=== PATIENT | female | born 1980 | race Caucasian/White ===

== ENCOUNTER → 2017-04-16 | Outpatient (CLI) | payer BC | END | disposition home or self-care (01) | LOC: C.LAB1850 10:03 | PROVIDERS: ATTEND Obstetrics & Gynecology | DX: O20.9 Hemorrhage in early pregnancy, unspecified (principal) ==

== ENCOUNTER → 2017-05-10 | Outpatient (CLI) | payer BC ==
[2017-05-10 12:29] LABS: BASO % 0.1 %; BASO ABS # 0.01 K/uL (0-0.2); COMPLETE YES; EOS % 0.3 %; HEMATOCRIT 32.8 % (37-47); IG% 0.1 %; LYMPH % 14.9 %; LYMPH ABS # 1.01 K/uL (1.2-3.4); MEAN CELL VOLUME 85.2 fL (80-100); MEAN CORPUSCULAR HEMOGLOBIN 28.8 pg (25-34); MEAN CORPUSCULAR HGB CONC 33.8 g/dl (32-36); MEAN PLATELET VOLUME 9.5 fL (7.4-10.4); NEUT % 79.6 %; PLATELET COUNT 273 K/uL (130-400); RED BLOOD COUNT 3.85 M/uL (4.2-5.4); WHITE BLOOD COUNT 6.79 K/uL (4.8-10.8)
[2017-05-10 14:49] LABS: URINE APPEARANCE CLEAR (CLEAR); URINE BILIRUBIN NEG (NEG); URINE COLOR YELLOW; URINE NITRITE NEG (NEG); URINE PH 7.5 (4.5-7.5); URINE SPECIFIC GRAVITY 1.021 (1.000-1.030); UROBILINOGEN NEG (NEG)
[2017-05-10 15:15] LABS: MANUAL MICROSCOPIC REQUIRED? NO; REVIEW REQ? NO
== END | disposition home or self-care (01) ==
LOC: C.LAB1850 11:32
PROVIDERS: ATTEND Obstetrics & Gynecology
DX: O09.521 Supervision of elderly multigravida, first trimester (principal)

== ENCOUNTER → 2017-06-28 | Outpatient (CLI) | payer BC ==
[2017-06-28 13:02] LABS: GTGD 50 Grams
[2017-06-29 15:14] LABS: AFP CONCENTRATION 57.6 NG/ML; AFP MULTIPLE OF MEDIAN 1.81; AFPTS INSULIN DEP DIABETIC? NO; AFPTS MATERNAL WT 127 LBS; ALPHA-FETOPROTEIN RACE CAUCASIAN=W; CIGARETTE SMOKER? NOT PROVIDED; EDD DETERMINED BY ULTRASOUND; HISTORY OF NTD NO; REPEAT SAMPLE? NO
== END | disposition home or self-care (01) ==
LOC: C.LAB1850 10:10
PROVIDERS: ATTEND Obstetrics & Gynecology
DX: O09.522 Supervision of elderly multigravida, second trimester (principal)

== ENCOUNTER → 2017-07-13 | Outpatient (CLI) | payer BC | END | disposition home or self-care (01) | LOC: C.LAB1850 08:41 | PROVIDERS: ATTEND Obstetrics & Gynecology | DX: O28.1 Abnormal biochemical finding on antenatal screening of mother (principal) ==

== ENCOUNTER 2017-08-16 19:07 | Observation (INO) | payer OTHER ==
[~2017-08-16] VITALS: Ht 154.9 cm; Wt 60.0 kg
[2017-08-16] MEDS ORDERED: LACTATED RINGER'S 1000ML 500 ML IV ONE (19:15)
[2017-08-16] MEDS ORDERED: MoRPHine SULFATE 4 MG/ML 1 ML CARP\\VIAL ONE (19:38)
[2017-08-16 19:48] LABS: EOS % 0.5 %; EOS ABS # 0.07 K/uL (0-0.5); HEMATOCRIT 30.7 % (37-47); HEMOGLOBIN 10.5 g/dL (12.0-16.0); LYMPH % 10.4 %; LYMPH ABS # 1.39 K/uL (1.2-3.4); MEAN CELL VOLUME 87.7 fL (80-100); MEAN CORPUSCULAR HGB CONC 34.2 g/dl (32-36); MONO % 4.4 %; MONO ABS # 0.59 K/uL (0.11-0.59); NEUT ABS # 11.26 K/uL (1.4-6.5); PLATELET COUNT 278 K/uL (130-400); RED CELL DISTRIBUTION WIDTH CV 16.2 % (11.5-14.5); RED CELL DISTRIBUTION WIDTH SD 52.4 fL (36.4-46.3); WHITE BLOOD COUNT 13.41 K/uL (4.8-10.8)
[2017-08-16] MEDS ORDERED: PATIENT'S ALLERGY INFO NEEDS ENTERED SCH (20:00)
--- NOTE | 2017-08-16 20:47 | DIAGNOSTIC IMAGING REPORT ---
CT SCAN OF THE ABDOMEN AND PELVIS WITHOUT IV CONTRAST CLINICAL HISTORY: Right lower quadrant abdominal pain. . COMPARISON STUDY: No priors. TECHNIQUE: CT scan of the abdomen and pelvis is performed from the lung bases to the proximal femora. Images are reviewed in the axial, sagittal, and coronal planes. IV contrast was not administered for this examination as per the referring clinician. Note that the examination was performed in suboptimal fashion without oral and IV contrast. A dose lowering technique was utilized adhering to the principles of ALARA. CT DOSE: 279.15 mGy.cm FINDINGS: Lung bases: The heart is normal in size and without pericardial effusion. The lung bases are clear. Liver: The unenhanced liver is normal in size, contour, and attenuation. There is no intrahepatic biliary ductal dilatation. Gallbladder: Unremarkable. Spleen: Normal in size and attenuation. Pancreas: Unremarkable. Adrenal glands: Unremarkable. Kidneys: The unenhanced kidneys are normal in size. There is moderate right-sided hydronephrosis. There is a 4 mm calculus in the right pelvis on image #[id number] along the course of the distal right ureter. This could represents an obstructing ureteral stone although this cannot be confirmed. Hydronephrosis could also be related to mass effect from the gravid uterus. There is an additional 5 mm nonobstructing right renal calculus. No left renal calculi are identified. There is no evidence of contour deforming renal mass lesion. Abdominal vasculature: The abdominal aorta is normal in course and caliber. Bowel: The small bowel and colon are normal in course and caliber. The appendix is well-visualized and normal. Peritoneum: There is no intraperitoneal free air or abdominal ascites. Lymphadenopathy: None. Pelvic viscera: The gravid uterus is enlarged and a single intrauterine gestation is identified. The bladder is decompressed and not well evaluated. No adnexal lesion is seen. Skeletal structures: No lytic or blastic lesions are seen. IMPRESSION: 1. Suboptimal examination without oral and IV contrast. 2. The appendix is well-visualized and normal. 3. The uterus is enlarged and there is a single intrauterine gestation. Note that this does not diagnostically assess the fetus. 4. There is moderate right hydronephrosis. A 4 mm calculus is seen along the course of the distal right ureter, and this likely represents an obstructing distal right ureteral stone although intraureteral positioning is difficult to confirm. Less likely, hydronephrosis could also be related to mass effect from the gravid uterus. Correlation with clinical findings and urinalysis will be required. 5. A 5 mm nonobstructing stone is seen in the right kidney. 6. There is no left-sided hydronephrosis. 7. Additional findings as above. Electronically signed by: Wilfrido Rai M.D. 08/16/2017 8:45 PM Dictated Date/Time: 08/16/2017 8:39 PM
[2017-08-16 20:58] VITALS: Ht 154.9 cm; Wt 60.0 kg
[2017-08-16] MEDS ORDERED: PRENTAB26 PO (20:58)
[2017-08-16] MEDS: PROMETHAZINE HCL INJ 12.5 MG in SODIUM CHLORIDE 0.9% 50ML 50 ML IV PRN (21:03)
[2017-08-16] MEDS ORDERED: TAMSULOSIN HCL 0.4 MG CAP PO ONE (21:15)
[2017-08-16] MEDS: LACTATED RINGER'S 1000ML 1,000 ML IV SCH (21:28)
[2017-08-16] MEDS: MoRPHine SULFATE 4 MG/ML 1 ML CARP\\VIAL IV PRN ×2 (21:29→23:31)
[2017-08-16] MEDS ORDERED: IV FLUIDS COMPLETED PRN (23:30)
[2017-08-17] MEDS: ACETAMINOPHEN IV 1,000 MG in EMPTY BAG 0 ML IV SCH ×3 (00:03→16:00)
[2017-08-17] MEDS: HYDROmorphone INJ 1 MG/ML SYR IV PRN ×2 (01:32→01:57)
[2017-08-17] MEDS: LACTATED RINGER'S 1000ML 1,000 ML IV SCH ×2 (01:38→07:00)
[2017-08-17] MEDS ORDERED: HYDROmorphone INJ 1 MG/ML SYR IV PRN ×3 (04:15→11:15)
[2017-08-17] MEDS: PROMETHAZINE HCL INJ 12.5 MG in SODIUM CHLORIDE 0.9% 50ML 50 ML IV PRN ×2 (05:10→11:37)
[2017-08-17] MEDS ORDERED: D5W AND LACTATED RINGERS 1,000 ML IV SCH (09:15)
--- NOTE | 2017-08-17 09:16 | Urology Consultation ---
History General Date of Service: Aug 17, 2017. Chief Complaint: kidney stone Primary Care Physician: No Doctor, Assigned Pt seen a urologist before?: No History of Present Illness Very healthy 36y/o female - ~23weeks . - has been experiencing right lower quadrant/pelvic pain for the past several weeks - believed it was related to driven bone/muscle pain - yesterday,however, she developed sudden 10/10, nauseating pain focused in the right groin - CT: 4-5 mm stone in the right kidney (posterior calyx), 4 mm distal right ureteral stone with moderate hydro (2-3cm above bladder) - after admission, pain control was quite challenging, overnight, however, her pain resolved entirely - she has been pain free this morning for several hours - no visualized stone passage yet Imaging Imaging: CT Laboratory Labs were reviewed and are within normal limits unless listed below. Labs are available in the chart and at [facility] Past History other () Past Surgical History: no surgical history Family History possible family hx of stones - uncertain Social History Hx Tobacco Use In Past Year?: No Smoking: non-smoker Alcohol: never Marital status: Housing status: lives with family, lives with significant other Allergies Coded Allergies: No Known Allergies (Unverified , 08/16/17) Medications Home Medications: Home Meds and Scripts Medications Dose Route/Sig Max Daily Dose Days Date Category Vitamin (Prenat Multivit/[place]/Iron/Folic Ac) Tab 1 Tab PO DAILY 08/16/17 Reported Inpatient Medications: Current Inpatient Medications Medications (Trade) Dose Ordered Sig/Hank Route Start Time Stop Time Status Last Admin Dose Admin Promethazine HCl 12.5 mg/Sodium Chloride 50.5 ml @ 204 mls/hr Q6H PRN IV 08/16/17 20:30 09/15/17 20:29 08/17/17 05:10 204 MLS/HR Lactated Ringer's 1,000 ml @ 200 mls/hr Q5H IV 08/16/17 21:00 09/15/17 20:59 08/17/17 07:00 200 MLS/HR Miscellaneous (Iv Fluids Completed) 1 ea PRN PRN N/A 08/16/17 23:30 08/16/18 23:29 08/17/17 01:38 1 EA Acetaminophen 1000 mg/Empty Bag 100 ml @ 400 mls/hr Q8H IV 1/19/18 00:00 09/16/17 00:00 08/17/17 07:39 400 MLS/HR Hydromorphone HCl (Dilaudid Inj) 0.5 mg Q2H PRN IV 08/17/17 00:00 08/31/17 00:00 08/17/17 01:57 0.5 MG Hydromorphone HCl (Dilaudid Inj) 1 mg Q2H PRN IV 08/17/17 04:15 08/31/17 04:14 08/17/17 04:30 1 MG Review of Systems Review of Systems Constitutional: No see HPI, No fever, No chills, No frequent headaches, No weight loss, No problem reported Eyes: No see HPI, No blurred vision, No double vision, No eye pain, No loss of night vision, No problem reported Neurological: No see HPI, No dizzy, No passing out, No numbness/tingling, No seizures, No problem reported Endocrine: No see HPI, No excessive thirst, No too hot, No too cold, No tired/ sluggish, No problem reported Gastrointestinal: + abdominal pain, + nausea Cardiovascular: No see HPI, No heart murmur, No chest pain, No angina, No irregular heartbeat, No palpitations, No swelling ankles/feet, No problem reported Respiratory: No see HPI, No shortness of breath, No wheezing, No coughing up blood, No chronic cough, No problem reported Skin: No see HPI, No rash, No boils, No dry skin, No problem reported Musculoskeletal: No see HPI, No joint pain, No neck pain, No back pain, No arthritis, No problem reported Blood / Lymphatic: No see HPI, No bleed easily, No bruise easily, No swollen glands, No problem reported Ears / Nose / Throat: No see HPI, No hearing loss, No sinus, No hoarse voice, No sore throat, No problem reported Psychologic / Mental: No see HPI, No nervous, No trouble remembering, No difficulty sleeping, No problem reported Female : + kidney stones, No painful urination, No blood in urine All Other Systems: Reviewed and Negative Physical Exam Physical Exam: General Appearance: WD/WN, no apparent distress Eyes: bilateral eyes normal inspection ENT: hearing grossly normal Neck: no adenopathy Respiratory/Chest: no respiratory distress, no accessory muscle use Cardiovascular: regular rate, rhythm Gastrointestinal: Abdomen: normal abdomen (gravid ) Bladder: normal bladder (no tenderness on palpation of the lower pelvis/ groin) Renal: normal renal (no right or left CVA tenderness) Extremities: normal range of motion, non-tender, no pedal edema Neurologic/Psychiatric: alert, normal mood/affect, oriented x 3 Skin: warm/dry Lymphatic: no adenopathy Assessment & Plan Assessment & Plan Nephrolithiasis - given the relief of symptoms overnight, I strongly favor initial observation - if she remains pain free throughout today, she likely can be d/c'ed with the presumption of passage or, at a minimum, provided with the opportunity to pass the stone spontaneously at home - if symptoms recur, we may be forced to consider URS/LL - at present, I am reluctant to consider re-imaging - but if necessary over the next two days, I would start with an US to see if the stone is visible and/or hydro has resolved
[2017-08-17 09:31] LABS: CREATININE 0.65 mg/dl (0.60-1.20); POTASSIUM 3.6 mmol/L (3.5-5.1)
[2017-08-17] MEDS ORDERED: CALCIUM CARBONATE 500 MG CHEWABLE PO PRN (10:30)
[2017-08-17 10:50] VITALS: BP 108/68; PULSE 90; TEMP 36.8
[2017-08-17 16:15] VITALS: BP 102/65; PULSE 84; TEMP 37.1; O2SAT 98
--- NOTE | 2017-08-17 16:28 | Progress Note ---
Progress Note Date of Service Aug 17, 2017. Progress Note Recalled to see patient due to recurrent pain requiring Dilaudid since seen by Dr. Lechuga in AM. No stones passed, events and notes reviewed, in room , remains NPO. She reports her pain is currently improved again, no pain meds. Findings reviewed with patient. As noted, unless her stone is passed, we cannot be sure if it is retained or not. As noted, it might already be in the bladder and pass shortly or more colic may be to come. Should she wish to try to pass the stone, it would not be unreasonable to try as an outpatient. Patient is very anxious over the risk of return of her colicky pain, which she notes was very intense and difficult to control. Alternatively, as she remains NPO, we could proceed with endoscopic evaluation and management acutely. Will consent for cysto, right ureteroscopy, laser lithotripsy, stent, possible RPG. She should be stable for DC home after this. Risks and benefits including risk to and stent irritation would be planned. Would try to avoid the use of Xray intraop if possible and uncomplicated. After discussion with , she wishes to proceed with intervention. Added to schedule. Will check a renal US beforehand - should her R hydro be completely resolved, consider avoiding intervention. VIVIAN
--- NOTE | 2017-08-17 17:04 | DIAGNOSTIC IMAGING REPORT ---
ULTRASOUND KIDNEYS AND BLADDER CLINICAL HISTORY: Distal right ureteral stone. COMPARISON STUDY: Abdominal CT dated 08/16/2017. TECHNIQUE: Real-time, grayscale, and color flow sonography of the kidneys and bladder is performed. Images are reviewed in the transverse and longitudinal planes. FINDINGS: Kidneys: The kidneys are normal in size and echotexture. The right kidney measures 11.2 x 4.9 x 6.3 cm and the left kidney measures 10.2 x 4.9 x 4.9 cm. There is mild to moderate right-sided hydronephrosis. There is mild fullness of the left renal collecting system without denia hydronephrosis. No shadowing renal calculi are identified. There is no sonographic evidence of contour deforming renal mass lesion. No perinephric fluid is identified. Bladder: The fetus and gravid uterus are noted in the pelvis. The partially distended bladder is normal in appearance. Only a left ureteral jet was seen. IMPRESSION: 1. There is mild to moderate right hydronephrosis. A right ureteral jet was not identified, and this is likely related to an obstructing distal right ureteral calculus when correlated with yesterday's abdominal CT. 2. There is mild fullness of the left renal collecting system without evidence of hydronephrosis. A left ureteral jet was seen. 3. The bladder is normal as imaged. Electronically signed by: Wilfrido Rai M.D. 08/17/2017 5:03 PM Dictated Date/Time: 08/17/2017 5:01 PM
[2017-08-17] MEDS ORDERED: LACTATED RINGER'S 1000ML 1,000 ML IV SCH (19:15)
[2017-08-17] MEDS ORDERED: NURSING VERBAL MED ORDER ONE (19:15)
[2017-08-17] MEDS ORDERED: OXYC-57 PO (19:31)
--- NOTE | 2017-08-17 19:53 | Discharge Instructions ---
Discharge Instructions Date of Service Aug 17, 2017. Admission Reason for Admission: Check Pre-Term Labor 23 Weeks Discharge Discharge Diagnosis / Problem: kidney stones Discharge Goals Goal(s): Continuing OB care Activity Recommendations Activity Limitations: resume your previous activity . Instructions / Follow-Up Instructions / Follow-Up Keep your next appointment in the OB office. Current Hospital Diet Patient's current hospital diet: Discharge Diet Recommended Diet: Regular Diet Pending Studies Studies pending at discharge: no Medical Emergencies . Who to Call and When: Medical Emergencies: If at any time you feel your situation is an emergency, please call [phone] immediately. . Non-Emergent Contact Non-Emergency issues call your: Senior Sustainability Advisor . . "Provider Documentation" section prepared by Marsha Perez. . VTE Core Measure Inpt VTE Proph given/why not?: Treatment not indicated [place] Drug Monitoring Program Search Results: patient reviewed within database, no issues identified
--- NOTE | 2017-08-17 20:27 | Progress Note ---
Progress Note Date of Service Aug 17, 2017. Progress Note ctsp due to her desire to go home. spoke to dr. hurtado, he feels that is her choice. when i go in to see pt she sits bolt upright in bed and denies pain whatsoever. she last took 1mg of dilaudid at 11am. she has not asked for or needed pain meds since. she wants to go home. she is to return with severe pain to ER. I told her i would send her with script for narcotic if needed. reviewed instructions. reviewed need for urology followup within preg with further pain or pp if no pain to see about stones per Dr. Hurtado.
[2017-08-17 20:30] VITALS: BP 117/72; PULSE 91; TEMP 37.1
[2017-08-17 22:03] VITALS: BP 117/72; PULSE 91; TEMP 37.1; O2SAT 98
== END 2017-08-17 22:40 | disposition home or self-care (01) ==
LOC: C.OPB 19:07 → C.LD 19:07 → C.OPB 22:05 → C.OBG 08-17 10:17
PROVIDERS: ADMIT Obstetrics & Gynecology; ATTEND Obstetrics & Gynecology
DX: O99.89 Other specified diseases and conditions complicating pregnancy, childbirth and the puerperium (principal); N20.9 Urinary calculus, unspecified; Z3A.23 23 weeks gestation of pregnancy

== ENCOUNTER → 2017-08-24 | Outpatient (CLI) | payer OTHER ==
[~2017-08-24] MED LIST: OXYC-57 PO; PRENTAB26 PO
== END | disposition home or self-care (01) ==
LOC: C.LABSPEC 16:09
PROVIDERS: ATTEND Urology
DX: N20.0 Calculus of kidney (principal)

== ENCOUNTER → 2017-09-20 | Outpatient (CLI) | payer OTHER | END | disposition home or self-care (01) | LOC: C.LABSPEC 11:36 | PROVIDERS: ATTEND Obstetrics & Gynecology | DX: O09.523 Supervision of elderly multigravida, third trimester (principal); Z3A.00 Weeks of gestation of pregnancy not specified ==

== ENCOUNTER → 2017-09-20 | Outpatient (CLI) | payer OTHER ==
[2017-09-20 10:00] LABS: HEMATOCRIT 29.5 % (37-47); HEMOGLOBIN 9.7 g/dL (12.0-16.0)
== END | disposition home or self-care (01) ==
LOC: C.LAB1850 09:06
PROVIDERS: ATTEND Obstetrics & Gynecology
DX: O09.523 Supervision of elderly multigravida, third trimester (principal); Z3A.00 Weeks of gestation of pregnancy not specified

== ENCOUNTER → 2017-11-15 | Outpatient (CLI) | payer OTHER | END | disposition home or self-care (01) | LOC: C.LABSPEC 10:46 | PROVIDERS: ATTEND Obstetrics & Gynecology | DX: O09.523 Supervision of elderly multigravida, third trimester (principal); Z3A.00 Weeks of gestation of pregnancy not specified ==

== ENCOUNTER 2017-12-03 05:29 | Inpatient (IN) | payer OTHER ==
[~2017-12-03] VITALS: Ht 157.5 cm; Wt 68.5 kg
[2017-12-03] VITALS (14 sets, daily range): BP systolic 94–122; BP diastolic 57–76; PULSE 76–91; TEMP 36.3–37.6; O2SAT 96–100; Ht 157.5 cm; Wt 68.5 kg
[2017-12-03] MEDS ORDERED: LACTATED RINGER'S 1000ML 1,000 ML IV SCH ×2 (05:31→06:00)
[2017-12-03] MEDS ORDERED: CEFAZOLIN IV 2,000 MG in SYRINGE 0 ML IV SCH (06:00)
[2017-12-03] MEDS ORDERED: CITRIC ACID/SODIUM CITRATE 15 ML UDC PO SCH (06:00)
[2017-12-03 06:06] LABS: BASO % 0.1 %; BASO ABS # 0.01 K/uL (0-0.2); EOS % 1.5 %; EOS ABS # 0.17 K/uL (0-0.5); HEMATOCRIT 30.6 % (37-47); HEMOGLOBIN 10.7 g/dL (12.0-16.0); IG# 0.11 K/uL (0.00-0.02); LYMPH % 19.4 %; LYMPH ABS # 2.13 K/uL (1.2-3.4); MEAN CELL VOLUME 89.7 fL (80-100); MEAN CORPUSCULAR HEMOGLOBIN 31.4 pg (25-34); MEAN PLATELET VOLUME 9.2 fL (7.4-10.4); MONO % 4.7 %; MONO ABS # 0.52 K/uL (0.11-0.59); NEUT % 73.3 %; NEUT ABS # 8.06 K/uL (1.4-6.5); PLATELET COUNT 235 K/uL (130-400); RED CELL DISTRIBUTION WIDTH CV 17.3 % (11.5-14.5); RED CELL DISTRIBUTION WIDTH SD 56.5 fL (36.4-46.3)
[2017-12-03] MEDS: LACTATED RINGER'S 1000ML 1,000 ML IV SCH ×2 (06:48→20:01)
[2017-12-03] MEDS ORDERED: NALOXONE HCL INJ 1 MG in SODIUM CHLORIDE 0.9% 1000ML 1,000 ML IV PRN (07:20)
[2017-12-03] MEDS ORDERED: SODIUM CHLORIDE 0.9% 1000ML 1,000 ML IV PRN (07:20)
[2017-12-03] MEDS ORDERED: NALOXONE HCL INJ 0.08 MG in SYRINGE 1.8 ML IV PRN (07:20)
[2017-12-03] MEDS ORDERED: LACTATED RINGER'S 1000ML 500 ML IV PRN (07:20)
[2017-12-03] MEDS ORDERED: EpHEDrine SULFATE 50MG/5ML SYR ONE (07:25)
[2017-12-03] MEDS ORDERED: OXYTOCIN INJ 10 UNITS/ML VIAL ONE ×3 (07:25→08:20)
[2017-12-03] MEDS ORDERED: MoRPHine SULFATE PF 1 MG/ML 10 ML AMP/VIAL ONE (07:25)
[2017-12-03] MEDS ORDERED: FENTANYL CITRATE INJ 50 MCG/1 ML 2 ML VIAL IV PRN (07:30)
[2017-12-03] MEDS ORDERED: EpHEDrine SULFATE INJ 50 MG/ML AMP IV PRN ×2 (07:30)
[2017-12-03] MEDS ORDERED: NALOXONE HCL 0.4 MG/1 ML VIAL/CARP IV PRN (07:30)
[2017-12-03] MEDS ORDERED: NO NARCOTICS OR SEDATIVES SCH (07:30)
[2017-12-03] MEDS ORDERED: MEPERIDINE HCL 25 MG/ML CARP IV PRN ×2 (07:30)
[2017-12-03] MEDS ORDERED: LABETALOL HCL IV 5 MG/ML 20ML IV PRN (07:30)
[2017-12-03] MEDS ORDERED: HYDROmorphone INJ 1 MG/ML SYR IV PRN (07:30)
[2017-12-03] MEDS ORDERED: MoRPHine SULFATE 2 MG/ML CARP IV PRN (07:30)
[2017-12-03] MEDS ORDERED: NALBUPHINE HCL INJ 10 MG/ML AMP IV PRN (07:30)
[2017-12-03] MEDS ORDERED: MoRPHine SULFATE PF 1 MG/ML 10 ML AMP/VIAL EPI PRN (07:30)
[2017-12-03] MEDS ORDERED: ONDANSETRON INJ 2 MG/ML 2 ML VIAL IV PRN ×2 (07:30)
[2017-12-03] MEDS ORDERED: METOCLOPRAMIDE HCL INJ 20 MG in SODIUM CHLORIDE 0.9% 50ML 50 ML IV PRN (07:30)
[2017-12-03] MEDS ORDERED: ATROPINE SULFATE 0.1 MG/ML 5ML SYR IV PRN (07:30)
[2017-12-03] MEDS ORDERED: KETOROLAC TROMETHAMINE 30 MG/ML VIAL IV. PRN (07:30)
[2017-12-03] MEDS ORDERED: DiphenhydrAMINE HCL 50 MG/ML VIAL IV PRN ×2 (07:30)
--- NOTE | 2017-12-03 07:45 | HISTORY & PHYSICAL EXAMINATION ---
DATE OF ADMISSION: 12/03/2017 REASON FOR ADMISSION: Krishna intrauterine at term with a prior section. HISTORY OF PRESENT ILLNESS: This is a 37-year-old G2, P1-0-0-1, who presents at 39+ weeks gestational age with a krishna , whose due date is 11/09/2017. She presents for a planned repeat section. The patient did have a prior for nonreassuring tones done in [place] in 2014 for a 7 pound 10 ounce female. This has been relatively uncomplicated. ALLERGIES: None. MEDICATIONS: vitamins and iron. PAST MEDICAL HISTORY: Notable for varicella. PAST SURGICAL HISTORY: Prior x1. SOCIAL HISTORY: Negative x3. female. PHYSICAL EXAMINATION: VITAL SIGNS: See QS. heart tones are category 1 with a baseline of 130. Good accels, no decels, moderate variability. Her TOCO shows rare activity, not appreciated by the patient. GENERAL: Alert and in no acute distress. HEART: Regular rate and rhythm. LUNGS: Clear to auscultation bilaterally. ABDOMEN: Gravid, nontender. Cervix deferred. LABORATORY DATA: On review of labs, blood type O positive, rubella immune, hepatitis B negative, HIV negative. The patient did fail her 1-hour glucose screen but fortunately passed her 2-hour screens. ASSESSMENT AND PLAN: G2, P1 at term, with a prior section for nonreassuring tones at an outside institution, and she is here today for repeat section at term.
[2017-12-03] MEDS ORDERED: PHENYLEPHRINE 100MCG/ML 5ML SYR ONE (07:46)
[2017-12-03] MEDS ORDERED: METHYLERGONOVINE MALEATE 0.2 MG/ML AMP ONE (08:25)
--- NOTE | 2017-12-03 08:36 | [facility] Post Operative Brief Note ---
Immediate Operative Summary Operative Date December 03, 2017. Pre-Operative Diagnosis Term at 39 1/7 Weeks; Previous Caesarean Section x 1; Patient desires Repeat Caesarean Section. Post-Operative Diagnosis Same as Preop Procedure(s) Performed Repeat low transverse for Live Male at [address] 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 Villareal Estimated Blood Loss 600 ml Findings Consistent with Post-Op Diagnosis Specimens Placenta - Exam Cord Blood Drains None Anesthesia Type Spinal Complication(s) none Disposition Accompanied Pt To Recover: yes Disposition: L&D
[2017-12-03] MEDS ORDERED: SENNA 8.6 MG TAB PO PRN (08:45)
[2017-12-03] MEDS ORDERED: MAGNESIUM HYDROXIDE SUSP 30 ML UDC PO PRN (08:45)
[2017-12-03] MEDS ORDERED: BENZOCAINE 20% AER SPR 82.5 GM CAN EXT PRN (08:45)
[2017-12-03] MEDS ORDERED: SUPERCREAM 0.870 % 15GM JAR EXT PRN (08:45)
[2017-12-03] MEDS ORDERED: LANOLIN OINT EXT PRN (08:45)
[2017-12-03] MEDS ORDERED: DIPHTHERIA/TETANUS/PERTUSSIS 0.5 ML SYR/VIAL IM. ONE (08:45)
[2017-12-03] MEDS ORDERED: OXYTOCIN INJ 30 UNITS in LACTATED RINGER'S 1000ML 1,000 ML IV SCH (08:45)
[2017-12-03] MEDS ORDERED: HYDROCORTISONE ACETATE 25 MG SUPP PR PRN (08:45)
--- NOTE | 2017-12-03 08:47 | Discharge Instructions ---
Discharge Instructions Date of Service December 03, 2017. Admission Reason for Admission: Previous Section Discharge Discharge Diagnosis / Problem: Discharge Goals Goal(s): Routine recovery after Medications Continue Dispensed Medications: supercream, dermaplast, tucks, lansinoh Activity Recommendations Activity Limitations: per Instructions/Follow-up section . Instructions / Follow-Up Instructions / Follow-Up ACTIVITY RECOMMENDATIONS: * Gradual return to full activity over the next 2-3 weeks. * No lifting - nothing heavier than baby over the next 2-3 weeks. * Do not engage in vigorous exercise, sexual activity or sports until cleared by your physician. * Do not drive or operate any motorized equipment until cleared by your physician. * You may shower/bathe daily. MEDICATIONS: For discomfort or pain, you may use Acetaminophen (Tylenol), Ibuprofen (Advil), or Naproxen (Aleve) following the package directions. For constipation you may use Colace following the package directions. BREAST CARE: If you are not breast feeding: * Wear a supportive bra 24 hours a day for one to two weeks. * Avoid stimulating your breasts and nipples as much as possible during the first few weeks after delivery. * When taking a shower, have the warm water hit your back, not breasts. * When your breasts feel full, apply ice packs. Usually three to four times a day helps ease the discomfort. * Take a mild pain medication (Tylenol / Motrin) when you are uncomfortable. If breast feeding: * Use breast milk to lubricate nipples. Lansinoh cream may be used for sore nipples. You do not need to remove cream prior to breast feeding. If using a different brand of cream, check the label for directions regarding removal of cream prior to nursing. * Wear a supportive bra. * If having problems with breasts or breast feeding, call a sourcing consultant or your health care provider. SPECIAL CARE INSTRUCTIONS: When you are discharged from the hospital, it is important for you to follow the instructions listed below: * During the first week at home, you should be able to care for yourself and your baby. In addition, the usual light household activities are encouraged. * Limit your activities to the way you feel. Do not try to clean the house or move furniture. Be sensible. * If you actively engage in sports and have done so up until the time of your delivery, you may resume these activities as soon as you feel able. This may take up to one month or even longer. Use good judgment. * Continue to take your vitamins for at least six weeks after the of your baby. * Your diet need not be limited unless you were on a special diet before your delivery. Breast-feeding mothers need around 2500 calories per day and at least 64-80 ounces of fluid per day (8 to 10 glasses). * You should eat foods from the four major food groups. Crash diets or fad diets are to be avoided. Eating lean meats, fresh fruits and vegetables, low-fat dairy products, high fiber foods and a regular exercise program, will help you get back to your pre- weight without putting your health at risk. * Constipation is sometimes a problem after delivery. Take a mild laxative as needed. If breast feeding, Milk of Magnesia is acceptable to use. You may use a suppository or Fleets enema. * A daily shower or tub bath is suggested. Wash incision daily with warm soapy water and pat dry. It doesn't need to be covered unless drainage is present. * A bloody vaginal discharge will usually continue until around four weeks . A small amount of bleeding may continue for as long as six weeks. Vaginal discharge changes from the bright red bleeding after delivery to pink then brownish and finally yellowish-pink before becoming white and disappearing. * Bleeding may increase with activity. Your first period may come in 4-8 weeks. If you are breast feeding, your period may be delayed even longer. * [place] (sex) can begin whenever both you and your partner feel comfortable and do not have any form of genital infection. It is recommended that you wait at least six weeks for internal and external healing to occur. If you have questions, please talk to your health care practitioner. A condom should be used to prevent infection and . * Foreplay, gentle intercourse and lubrication is very important the first several times to prevent pain. A water-based lubricant such as K-Y jelly or Astroglide may be used. * If you have RH negative blood and your baby is RH positive, you will receive RHOGAM by injection prior to discharge. The nurse will give you a card to keep with you that has the date and place that you received RHOGAM after delivery. * During your care, you had a Rubella screen done to check for the presence of rubella antibodies in your blood. If your test was negative, you will receive a Rubella vaccine prior to discharge. This vaccine may cause a fever, soreness at the injection site and flu-like symptoms. If these symptoms persist, notify your health care practitioner. is not advised for one month after a Rubella vaccine. * Verbalizes understanding of car seat law as reviewed with patient nursing. * Car Seat hand-out given and reviewed with patient by nursing. * Shaken baby information reviewed with patient by nursing. Call you doctor if: * Heavy bleeding (saturating several pads an hour) or passing clots the size of your fist. * A fever >101 degrees F (38.3 degrees C) on two occasions four hours apart and /or chills. * Unusual pain in the pelvic or vaginal areas. * Call the doctor for any increased redness, drainage or swelling around the incision and any pain unrelieved by prescribed pain medication. * "Baby Blues" lasting longer than two weeks. If you have any questions or concerns, call your health care practitioner at . FOLLOW UP VISIT: * Please call the office at to schedule a 6 week examination. It is important you keep this appointment. It is important for you to make arrangements for either yearly or twice yearly check-ups thereafter. Current Hospital Diet Patient's current hospital diet: Discharge Diet Recommended Diet: Regular Diet Procedures Procedures Performed: Repeat low transverse for Live Male Infant at 0758 Pending Studies Studies pending at discharge: no Medical Emergencies . Who to Call and When: Medical Emergencies: If at any time you feel your situation is an emergency, please call [phone] immediately. . Non-Emergent Contact Non-Emergency issues call your: Primary Care Provider . . "Provider Documentation" section prepared by Cristiana Villareal. .
--- NOTE | 2017-12-03 10:15 | Anesthesiology Progress Note ---
Anesthesia Post Op Note Date & Time December 03, 2017 at 10:15 Notes Mental Status: alert / awake / arousable, participated in evaluation Pt Amnestic to Procedure: Yes Nausea / Vomiting: adequately controlled Pain: adequately controlled Airway Patency, RR, SpO2: stable & adequate BP & HR: stable & adequate Hydration State: stable & adequate Neuraxial Anesthesia: was administered, sensory block is resolving Anesthetic Complications: no major complications apparent
--- NOTE | 2017-12-03 10:55 | OPERATIVE REPORT ---
DATE OF OPERATION: 12/03/2017 PREOPERATIVE DIAGNOSES: 1. Krishna intrauterine at 39 and 1/7 weeks. 2. Previous section. 3. The patient desires repeat. POSTOPERATIVE DIAGNOSIS: Same. PROCEDURE: Repeat low transverse section for a live male at 7:58 a.m. SURGEON: Dr. Davis. PARTS ROOM CLERK: PGY-1 ESTIMATED BLOOD LOSS: Dictation Ends Here I attest to the content of the Intraoperative Record and any orders documented therein. Any exception s are noted below.
[2017-12-03] MEDS ORDERED: BUPIVACAINE/DEXTROSE 0.75%-8.25% 2 ML AMP ONE (11:11)
--- NOTE | 2017-12-03 12:28 | OPERATIVE REPORT ---
DATE OF OPERATION: 12/03/2017 FINDINGS: Consistent with postoperative diagnosis. SPECIMENS: Placenta for exam and cord blood. DRAINS: None. ANESTHESIA: Spinal. COMPLICATIONS: None. DISPOSITION: Stable to labor and delivery. DESCRIPTION: This is a 37-year-old G2, P1-0-0-1 at full term with a wallace who presents for repeat. She was placed on the table in the supine position with a leftward tilt, prepped and draped in standard sterile fashion, and a hard timeout was taken prior to proceeding. The prior incision had generated a keloid scar. This was sharply excised using a scalpel and Bovie electrocautery. The subcutaneous tissue was then divided down to the fascia, which was nicked using a Bovie and then extended using Julian scissors. The superior and inferior edges were grasped with Kochers, elevated, and both sharply and bluntly dissected off the underlying tissues. Of note, there was significant scar tissue from her prior section. Additionally, the incision was located somewhat lower than I feel was ideal; however, the patient requested that the prior location be reutilized. Once the fascial dissection was complete, the midline was identified, and this was sharply divided in a cold manner using Metzenbaum scissors given the excessive scar tissue. Once a clear window of peritoneum was able to be identified, this was entered bluntly and then extended using pressure from the armored machine operator's hands. The bladder was found to be severely adhesed to the anterior uterine segment. This was released using pickups and Metzenbaum scissors in a cold sharp manner. Once the bladder was adequately mobilized downwards, the lower transverse incision was then created. Final entry to the uterus was made in a blunt manner using the surgeon's finger. The amnion was deliberately ruptured for clear fluid. The head was then elevated to the incision and delivered using mild fundal pressure. Of note, there was a shoulder cord present. The was fully delivered, and then, the cord was doubly clamped and cut, and the was taken to the warmer. Bulb suction was provided on the field by my miner assistant while I was clamping and cutting the cord. The infant was vigorous immediately upon delivery. Cord blood was collected, the placenta was then manually extracted, and the uterus was exteriorized. Of note, significant portions of placental and membranous tissue failed to release from the uterus. These were curetted out using a dry lap sponge, and when that was unsuccessful, a miranda curette was also used in an attempt to release the membranes. There was significant difficulty encountered in releasing the last chunk of membrane. I did ask for my partner Dr. Perez to scrub in to assist me in evaluating the uterus as I was concerned for accreta. At this time, the uterine tone was also fairly poor. Additional gentle curettage with the miranda curette and a dry lap sponge was eventually able over the next several minutes to release all the remaining bits and pieces of placental and membranous tissue. As about the time that Dr. Perez was able to finish gloving and join me at the table, the uterine tone had begun to significantly improve as the final pieces of tissue were ultimately removed. We did proceed then together to close the hysterotomy, and this was done using 0 Vicryl initially in a running locked manner; however, due to a very thin lower uterine segment, there was significant tearing of the lower uterine segment during the attempt to close. A second layer was then placed in a mattress suture fashion carefully reapproximating and reinforcing over the lower uterine segment sutures. When the hysterotomy had been satisfactorily closed and was seen to be completely intact and hemostatic, the Smith was noted to be draining clear yellow urine, and uterine tone was improving. I did ask that a dose of Hemabate be given in order to assure good lasting uterine tone after evaluating that the patient's blood pressure was in an acceptable range, that Hemabate was given by anesthesia. The posterior gutter was cleared of clot and debris using irrigation and suction. The uterus was then gently reapproximated after tubes and ovaries were seen to be normal bilaterally. Of note, the patient was questioned during surgery and declines tubal ligation. Once the uterus was gently replaced, the lateral gutters were cleared of clot and debris using irrigation and a damp lap sponge. The hysterotomy was again examined and found to be intact and hemostatic. The rectus was allowed to reapproximate naturally, and the fascia was then closed using a 1-0 Vicryl in a running nonlocked manner. At the completion of repair, the fascia was examined and found to be free of defect. The subcutaneous tissue was copiously irrigated and then gently reapproximated using a 3-0 chromic. Following this, the 4-0 Monocryl was used to close the skin in a subcuticular manner, and a Dermabond dressing was applied. Of note, the patient states that her prior incision was closed with amilcar, so we are hoping that the use of a different closure may help her avoid keloid although she was counseled that this may not be avoidable and some people tend to keloid more than others. Once a Dermabond dressing was applied, the Smith was again noted to be draining clear yellow urine, and the patient was transferred to her recovery room. I attest to the content of the Intraoperative Record and any orders documented therein. Any exception s are noted below.
[2017-12-03] MEDS: DOCUSATE SODIUM 100 MG CAP PO SCH (20:22)
[2017-12-04 00:30] VITALS: O2SAT 100
[2017-12-04 01:30] VITALS: O2SAT 96
[2017-12-04] MEDS ORDERED: ONDANSETRON INJ 2 MG/ML 2 ML VIAL IV PRN (01:30)
[2017-12-04] MEDS ORDERED: KETOROLAC TROMETHAMINE 30 MG/ML VIAL IV. PRN (01:30)
[2017-12-04] MEDS ORDERED: DiphenhydrAMINE HCL 50 MG/ML VIAL IV PRN (01:30)
[2017-12-04] MEDS ORDERED: DC INTRASPINAL MORPHINE ONE (01:30)
[2017-12-04] MEDS ORDERED: OXYCODONE/ACETAMINOPHEN 5-325 TAB PO PRN (01:30)
[2017-12-04 04:40] VITALS: BP 96/55; PULSE 90; TEMP 37.2; O2SAT 96
--- NOTE | 2017-12-04 06:11 | Progress Note ---
Subjective December 04, 2017. Subjective conversation w/ patient Ambulation: limited ambulation Voiding: no voiding problems (catheter removed, but patient has not voided as yet) Passing Gas: Yes Diet Tolerance: Clear Liquids (will be advanced to regular diet for breakfast) Lochia: Moderate Feeding Type: Breast Feeding Pain: 3/10 abdominal pain, improved with analgesia Review of Systems Constitutional: No fever, No chills Respiratory: No shortness of breath Cardiac: No chest pain Abdomen: No nausea, No vomiting Objective Vital Signs Date Time Temp Pulse Resp B/P (MAP) Pulse Ox O2 Delivery O2 Flow Rate FiO2 12/04/17 04:40 37.2 90 18 96/55 (69) 96 Room Air 12/04/17 01:30 18 96 12/04/17 00:30 16 100 12/03/17 23:30 97 Room Air 12/03/17 23:30 18 97 12/03/17 23:30 37.6 91 18 98/61 (73) 97 Room Air 12/03/17 22:30 16 98 12/03/17 21:30 16 97 12/03/17 20:10 37.1 84 18 94/57 (69) 97 Room Air 12/03/17 20:10 18 97 12/03/17 19:30 18 98 12/03/17 18:30 18 99 12/03/17 17:30 18 98 12/03/17 16:30 18 98 12/03/17 15:30 36.4 82 18 108/66 (80) 99 Room Air 12/03/17 15:30 18 99 12/03/17 15:30 99 Room Air 12/03/17 14:30 79 18 108/67 (81) 100 Room Air 12/03/17 14:30 18 100 12/03/17 13:35 18 98 12/03/17 13:35 36.4 82 20 106/67 (80) 96 Room Air 12/03/17 12:35 18 98 12/03/17 12:35 36.4 83 18 106/66 (79) 98 Room Air 12/03/17 12:05 36.9 78 18 104/66 (79) 98 Room Air 12/03/17 11:35 36.3 76 16 122/76 (91) 99 Room Air 12/03/17 11:35 16 99 12/03/17 11:35 99 Room Air 12/03/17 11:35 99 Room Air Physical Exam General Appearance: WELL-APPEARING, WD/WN, NO APPARENT DISTRESS Respiratory/Chest: lungs clear, normal breath sounds Cardiovascular: regular rate, rhythm Abdomen: soft Fundus: Firm, Tender, Relation to Umbilicus (1 cm below) Incision Description: Clean, Dry & Intact Extremities: no pedal edema, no calf tenderness Laboratory Results Last 24 Hours Test 12/04/17 06:00 Assessment and Plan Post-Op Day#: 1 Continue Routine Care: 37F s/p elective day 1 - O+, antibody positive, Rubella Immune, GBS -ve - pt doing well clinically - Vital signs reviewed and WNL - Hemoglobin pending, will review when available - goal today is to encourage ambulation, monitor and control pain and continue to encourage breast feeding - advance diet to full for breakfast Resident Physician Supervision Note: I interviewed and examined the patient. Discussed with Dr. Villareal and agree with findings and plan as documented in the note. Any exceptions or clarifications are listed here: [None] Documented By: Thi Davis Resident Tracking Resident Involvement: Resident Care Provided Care Provided: OB Delivery
[2017-12-04 06:34] LABS: EOS % 0.2 %; EOS ABS # 0.02 K/uL (0-0.5); HEMATOCRIT 23.7 % (37-47); IG# 0.04 K/uL (0.00-0.02); LYMPH % 10.3 %; LYMPH ABS # 1.07 K/uL (1.2-3.4); MEAN CELL VOLUME 90.5 fL (80-100); MEAN CORPUSCULAR HEMOGLOBIN 30.5 pg (25-34); MEAN CORPUSCULAR HGB CONC 33.8 g/dl (32-36); MEAN PLATELET VOLUME 8.6 fL (7.4-10.4); MONO % 5.6 %; MONO ABS # 0.58 K/uL (0.11-0.59); NEUT % 83.5 %; NEUT ABS # 8.68 K/uL (1.4-6.5); PLATELET COUNT 202 K/uL (130-400); RED CELL DISTRIBUTION WIDTH CV 17.5 % (11.5-14.5); RED CELL DISTRIBUTION WIDTH SD 57.7 fL (36.4-46.3); WHITE BLOOD COUNT 10.39 K/uL (4.8-10.8)
[2017-12-04 08:00] VITALS: BP 96/55; PULSE 67; TEMP 36.6; O2SAT 96
[2017-12-04] MEDS ORDERED: PRENATAL VITAMIN TAB PO SCH (08:00)
[2017-12-04] MEDS: DOCUSATE SODIUM 100 MG CAP PO SCH ×2 (08:39→19:47)
[2017-12-04] MEDS: PRENATAL VITAMIN TAB PO SCH (08:39)
[2017-12-04] MEDS: IBUPROFEN 600 MG TAB PO PRN ×2 (16:02→19:48)
[2017-12-04] MEDS: OXYCODONE/ACETAMINOPHEN 5-325 TAB PO PRN (16:03)
[2017-12-04 17:30] VITALS: BP 104/63; PULSE 79; TEMP 37.2; O2SAT 97
[2017-12-04] MEDS ORDERED: BISACODYL 5 MG TABEC PO ONE (22:00)
[2017-12-05] VITALS: BP 106/57; PULSE 71; TEMP 36.9; O2SAT 98
[2017-12-05] MEDS: IBUPROFEN 600 MG TAB PO PRN ×5 (00:04→20:00)
[2017-12-05] MEDS: OXYCODONE/ACETAMINOPHEN 5-325 TAB PO PRN ×2 (00:06→06:02)
[2017-12-05 04:00] VITALS: BP 109/62
--- NOTE | 2017-12-05 06:31 | Progress Note ---
Subjective December 05, 2017. Subjective conversation w/ patient Ambulation: limited ambulation (secondary to dizziness on ambulation) Voiding: no voiding problems Passing Gas: Yes Diet Tolerance: Regular Diet Lochia: Moderate Feeding Type: Breast Feeding Pain: 3/10, improved with analgesia Review of Systems Constitutional: + problem reported (dizziness), No fever, No chills Respiratory: No shortness of breath Cardiac: No chest pain Abdomen: No nausea, No vomiting Objective Vital Signs Date Time Temp Pulse Resp B/P (MAP) Pulse Ox O2 Delivery O2 Flow Rate FiO2 12/05/17 04:00 64 109/62 (78) 12/05/17 00:00 98 Room Air 12/05/17 00:00 36.9 71 16 106/57 (73) 98 Room Air 12/04/17 17:30 97 Room Air 12/04/17 17:30 37.2 79 18 104/63 (77) 97 Room Air 12/04/17 08:00 36.6 67 18 96/55 (69) 96 Room Air 12/04/17 08:00 Room Air Physical Exam General Appearance: WELL-APPEARING, WD/WN, NO APPARENT DISTRESS Respiratory/Chest: lungs clear, normal breath sounds Cardiovascular: regular rate, rhythm Abdomen: non tender Fundus: Firm, Tender, Relation to Umbilicus (1 below) Incision Description: Clean, Dry & Intact Extremities: no pedal edema, no calf tenderness Laboratory Results Last 24 Hours Test 12/05/17 06:00 Assessment and Plan Post-Op Day#: 2 Continue Routine Care: 37F s/p elective day 2 - O+, antibody positive, Rubella Immune, GBS -ve - pt doing well clinically - Vital signs reviewed and WNL - Hemoglobin 10.7 -> 8 - given dizziness with ambulation, will check another Hgb. May need a blood transfusion if not improving or dizziness persists - encourage ambulation, monitor and control pain and continue to encourage breast feeding - anticipate d/c tomorrow Resident Physician Supervision Note: I interviewed and examined the patient. Discussed with Dr. Zendejas and agree with findings and plan as documented in the note. Any exceptions or clarifications are listed here: [None] Documented By: Devin Santoyo Resident Tracking Resident Involvement: Resident Care Provided Care Provided: OB Delivery
[2017-12-05 07:35] VITALS: BP 115/67; PULSE 63; TEMP 36.7; O2SAT 98
[2017-12-05] MEDS: DOCUSATE SODIUM 100 MG CAP PO SCH ×2 (08:30→20:00)
[2017-12-05] MEDS: PRENATAL VITAMIN TAB PO SCH (08:30)
[2017-12-05] MEDS ORDERED: BISACODYL 10 MG SUPP PR PRN (08:45)
[2017-12-05 09:09] LABS: HEMATOCRIT 23.7 % (37-47); HEMOGLOBIN 7.9 g/dL (12.0-16.0)
[2017-12-05] MEDS: FERROUS SULFATE 325 MG TAB PO SCH (12:15)
[2017-12-05] MEDS ORDERED: HYDROCODONE/ACETAMIN 5/325MG TAB PO PRN (12:30)
[2017-12-05] MEDS ORDERED: ACETAMINOPHEN 325 MG TAB PO PRN (12:30)
[2017-12-05 15:30] VITALS: BP 110/64; PULSE 78; TEMP 37; O2SAT 97
[2017-12-06 00:10] VITALS: BP 102/67; PULSE 67; TEMP 36.8; O2SAT 98
[2017-12-06] MEDS: IBUPROFEN 600 MG TAB PO PRN ×4 (00:14→14:22)
--- NOTE | 2017-12-06 06:33 | Progress Note ---
Subjective December 06, 2017. Subjective conversation w/ patient Ambulation: ambulating normally Voiding: no voiding problems Diet Tolerance: Regular Diet Lochia: Moderate Feeding Type: Breast Feeding Pain: Pain localized to incision reported on ambulation, improved w/analgesia Review of Systems Constitutional: No fever, No chills, No weakness Respiratory: No shortness of breath Cardiac: No chest pain Abdomen: No nausea, No vomiting Objective Vital Signs Date Time Temp Pulse Resp B/P (MAP) Pulse Ox O2 Delivery O2 Flow Rate FiO2 12/06/17 00:10 36.8 67 20 102/67 (79) Room Air 12/06/17 00:10 98 Room Air 12/05/17 15:30 37.0 78 18 110/64 (79) 97 Room Air 12/05/17 15:30 Room Air 12/05/17 07:35 Room Air 12/05/17 07:35 36.7 63 18 115/67 (83) 98 Room Air Physical Exam General Appearance: WELL-APPEARING, WD/WN, NO APPARENT DISTRESS Respiratory/Chest: lungs clear, normal breath sounds Cardiovascular: regular rate, rhythm Abdomen: soft Fundus: Firm, Tender, Relation to Umbilicus (1 below) Incision Description: Clean, Dry & Intact Extremities: no pedal edema, no calf tenderness Laboratory Results Last 24 Hours Test 12/05/17 08:57 Hemoglobin 7.9 g/dL Hematocrit 23.7 % Assessment and Plan Post-Op Day#: 3 Continue Routine Care: 37F s/p elective day 3 - O+, antibody positive, Rubella Immune, GBS -ve - pt doing well clinically - Vital signs reviewed and WNL - Hemoglobin 10.7 -> 7.9 - pt offered blood transfusion but declined - started iron supplementation yesterday and will continue on d/c - dizziness with ambulation resolved, likely secondary to percocet as opposed to low hemoglobin - pt ready for d/c today - will review d/c instructions Resident Physician Supervision Note: I was present with Dr. Villareal during the history and exam. I discussed the case with the resident and agree with the findings and plan as documented in the note. Any exceptions or clarifications are listed here: POD#3 doing well. Discharge to home today. Documented By: Mariana Hutson Resident Tracking Resident Involvement: Resident Care Provided Care Provided: OB Delivery
[2017-12-06 07:53] VITALS: BP 101/61; PULSE 64; TEMP 36.7
[2017-12-06] MEDS: PRENATAL VITAMIN TAB PO SCH (08:06)
[2017-12-06] MEDS: FERROUS SULFATE 325 MG TAB PO SCH (08:06)
[2017-12-06] MEDS ORDERED: HYDR-5688 PO (08:46)
[2017-12-06] MEDS: DOCUSATE SODIUM 100 MG CAP PO SCH (08:54)
[2017-12-06 14:25] VITALS: BP_DIAS 61; PULSE 64; TEMP 36.7
== END 2017-12-06 15:30 | disposition home or self-care (01) | DRG 766 ==
LOC: C.LD 05:29 → EDSTATUS 09:00 → C.OBG 11:47
PROVIDERS: ADMIT Obstetrics & Gynecology; ATTEND Obstetrics & Gynecology
PROC: 10D00Z1 Extraction of Products of Conception, Low, Open Approach (ICD-10-PCS; principal; 2017-12-03 07:30)
PROC: 0HB7XZZ Excision of Abdomen Skin, External Approach (ICD-10-PCS; principal; 2017-12-03 07:30)
DX: O34.211 Maternal care for low transverse scar from previous cesarean delivery (principal); O09.523 Supervision of elderly multigravida, third trimester; Z37.0 Single live birth; Z3A.39 39 weeks gestation of pregnancy

== ENCOUNTER 2020-01-02 14:13 | Inpatient (IN) ==
[2020-01-02] MEDS ORDERED: MoRPHine SULFATE 4 MG/ML 1 ML CARP\\VIAL IV STA (15:15)
[2020-01-02] MEDS ORDERED: SODIUM CHLORIDE 0.9% 1000ML 1,000 ML IV ONE (15:15)
[2020-01-02] MEDS ORDERED: PROMETHAZINE 12.5 MG/50.5 ML BAG IV STA (15:15)
[2020-01-02 15:34] LABS: Basophils # (auto) 0.01 K/uL (0-0.2); Basophils % (auto) 0.1 %; Eosinophils # (auto) 0.07 K/uL (0-0.5); Eosinophils % (auto) 0.5 %; Hematocrit (blood only) 37.8 % (37-47); Hemoglobin 12.8 g/dL (12.0-16.0); Immature Granulocytes # (auto) 0.03 K/uL (0.00-0.02); Immature Granulocytes % (auto) 0.2 %; Lymphocytes # (auto) 0.52 K/uL (1.2-3.4); Lymphocytes % (auto) 3.9 %; Mean Corpuscular Hgb Conc 33.9 g/dL (32-36); Mean Corpuscular Volume 85.7 fL (80-100); Mean Platelet Volume 9.3 fL (7.4-10.4); Monocytes # (auto) 0.94 K/uL (0.11-0.59); Monocytes % (auto) 7.1 %; Neutrophils # (auto) 11.66 K/uL (1.4-6.5); Neutrophils % (auto) 88.2 %; Platelet Count 298 K/uL (130-400); RDW Coefficient of Variation 14.1 % (11.5-14.5); RDW Standard Deviation 44.1 fL (36.4-46.3); Red Blood Count 4.41 M/uL (4.2-5.4); White Blood Count 13.23 K/uL (4.8-10.8)
--- NOTE | 2020-01-02 15:35 | Emergency Department Note ---
History of Present Illness General Chief Complaint: Abdominal Pain Stated Complaint: BACK PAIN/ ABDOMINAL PAIN History of Present Illness Maximum Pain Intensity: 9 This patient is a pleasant 39-year-old female who presents to the emergency department ambulatory for evaluation of back pain that started a few weeks ago that is now radiating to the front of her abdomen. The pain is sharp/burning in nature. The pain is constant. She cannot identify any exacerbating or alleviating factors. Regarding the back pain, she had a tele-visit with her primary care physician earlier this week. The patient was prescribed steroids, muscle relaxants and prednisone for what was thought to be a muscle strain. She has been taking these medications with no relief. The patient started with 3 e pisodes of vomiting this morning. No blood or coffee-ground emesis noted. Bowel movements have been unchanged. No urinary symptoms. Last menses 3 weeks ago. No vaginal discharge. No fever. History of 2 C-sections a few years ago. Home Medications Home Medications Medication Instructions Recorded Confirmed Type cyclobenzaprine 5 mg tablet 5 mg PO TID PRN #20 tab 12/30/19 01/02/20 Rx prednisone 10 mg tablet See Rx Instructions PO DAILY #30 12/30/19 01/02/20 Rx tab tramadol 37.5 mg-acetaminophen 325 See Rx Instructions PO Q6H PRN #30 12/30/19 01/02/20 Rx mg tablet tab omeprazole 40 mg capsule,delayed 40 mg PO DAILY #30 cap 01/02/20 01/02/20 Rx release ondansetron HCl 4 mg tablet 4 mg PO Q6H PRN #20 tab 01/02/20 01/02/20 Rx Allergies Allergy/AdvReac Type Severity Reaction Status Date / Time No Known Allergies Allergy Unverified 01/02/20 15:13 Past Med/Surg History Medical History Anemia Surgical History History of section History of knee surgery Family History Father Hyperlipidemia Cardiac disorder Hypertension Kidney stone Glaucoma Mother Hyperlipidemia Hypothyroidism Grandmother Diabetes Stomach cancer Unknown Cardiac disorder Hypertension Kidney stone Denies family history of Ovarian cancer Prostate cancer Myocardial infarction Breast cancer Colorectal cancer Social History Preferred Language: Tongan Communication Ability: Effective Visual Impairment: No Limitations Hearing Ability: Normal [employer] Service Attendant Required: No Beliefs That Will Affect Care: None marital status: Current Living Situation: Spouse current occupational status: employed 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 Other Information That Helps Us Care for You: No Feels Safe at Home: Yes Safety Concerns: Feels Safe At This Time Smoking Status: Never smoker Do You Dip or Chew Tobacco: No ; Second Hand Exposure: No ; Tobacco Cessation Education Requested by Patient: No Hx Alcohol Use: No Hx Substance Use: No Childhood Exposure to Second-Hand Smoke: No Dental Care, Regularly: No Physical Activity Frequency: Does not Exercise Seatbelt Use: always Sunscreen Use: Yes Review of Systems A total of 10 systems reviewed and were otherwise negative Physical Exam Vital Signs: Vital Signs - 24 hr 01/02/20 14:27 01/02/20 16:49 01/02/20 18:02 Temperature 37.1 C Temperature Source Oral Pulse Rate 95 H Pulse Rate [Left F anson] 77 83 Pulse Rhythm [Left Finger] Pulse Strength [Le ft Finger] Respiratory Rate 20 16 20 Respiratory Effort / Characteristics Non-Labored Sponta neous Non-Labored Sponta neous Respiratory Depth Normal Normal Respiratory Patter n Regular Regular Blood Pressure 102/61 Blood Pressure [Ri ght Arm] 114/58 L 110/71 Blood Pressure Sandhya n 74 Blood Pressure Sandhya n [Right Arm] 76 84 Blood Pressure Pos ition [Right Arm] Pulse Oximetry 99 99 98 Oxygen Delivery Me thod Room Air Room Air Sepsis Recent Feve r Within 48 Hours No Sepsis Action Take n by Nursing No Action Required 01/02/20 19:23 Temperature Temperature Source Pulse Rate Pulse Rate [Left F anson] 80 Pulse Rhythm [Left Finger] Regular Pulse Strength [Le ft Finger] Normal Respiratory Rate 16 Respiratory Effort / Characteristics Non-Labored Sponta neous Respiratory Depth Normal Respiratory Patter n Regular Blood Pressure Blood Pressure [Ri ght Arm] 106/69 Blood Pressure Sandhya n Blood Pressure Sandhya n [Right Arm] 81 Blood Pressure Pos ition [Right Arm] Lying Pulse Oximetry 99 Oxygen Delivery Me thod Room Air Sepsis Recent Feve r Within 48 Hours Sepsis Action Take n by Nursing Constitutional: WD/WN, vitals as above Eyes: EOM intact bilaterally ENMT: Oral mucosa slightly dry Neck: trachea midline Respiratory: normal respiratory effort, lungs clear to auscultation Cardiovascular: RRR, no murmur, no edema Gastrointestinal (Abdomen): Tenderness to palpation in the epigastric and right upper quadrant. No guarding or rebound tenderness. Bowel sounds present in all 4 quadrants. No CVA tenderness noted. Musculoskeletal: no cyanosis or clubbing, extremities motor strength 5/5 Skin: no rashes, warm and dry Neurologic: Alert and oriented x3. No focal motor deficits. Psychiatric: Acting appropriately Course Course Patient was seen and examined Vital signs including blood pressure were reviewed medications list was verified with patient Labs were obtained, and a saline lock was established Medications and imaging ordered Upon reevaluation, the patient's pain was improved. We discussed her results. She voiced understanding. The case was discussed with my supervising physician, the hospitalist service and GI. I also spoke with the surgeon. She will be admitted for further treatment. The patient is comfortable with the plan. She was ordered 1 dose of Zosyn 4.5 g IV Consultations Consultation #1: Dr. Wadsworth Consultation #2: Dr. Xiong Consultation #3: Dr. Julien Administered Medications Sodium Chloride (Nss 1000ml) 1,000 mls @ 80 mls/hr IV .[id number] [facility] Stop: 02/01/20 23:14 Last Admin: 01/03/20 15:44 Dose: 80 mls/hr Documented by: [id number] Infusion: 01/03/20 15:38 Dose: 0 mls/hr Documented by: [id number] Admin: 01/02/20 23:48 Dose: 80 mls/hr Documented by: [id number] Piperacillin Sod/Tazobactam (Sod 3.375 gm/ Dextrose) 115 mls @ 28.75 mls/hr IV Q8H [facility]; Protocol Stop: 01/13/20 00:00 Last Infusion: 01/03/20 20:53 Dose: 0 mls/hr Documented by: [id number] Admin: 01/03/20 16:01 Dose: 28.8 mls/hr Documented by: [id number] Infusion: 01/03/20 15:38 Dose: 0 mls/hr Documented by: [id number] Admin: 01/03/20 09:07 Dose: 28.8 mls/hr Documented by: [id number] Infusion: 01/03/20 04:06 Dose: 0 mls/hr Documented by: [id number] Admin: 01/02/20 23:49 Dose: 28.8 mls/hr Documented by: [id number] Discontinued Medications Bacitracin (Bacitracin) Confirm Administered Dose 45 appln .ROUTE .STK-MED ONE Stop: 01/03/20 10:14 Last Admin: 01/03/20 14:29 Dose: 1 appln Documented by: [id number] Bupivacaine HCl (Marcaine 0.5% Mpf) Confirm Administered Dose 30 ml .ROUTE .STK- MED ONE Stop: 01/03/20 10:14 Last Admin: 01/03/20 14:29 Dose: 10 ml Documented by: [id number] Sodium Chloride (Nss 1000ml) 1,000 mls @ 999 mls/hr IV .Q1H1M ONE Stop: 01/02/20 16:15 Last Infusion: 01/02/20 16:30 Dose: 0 mls/hr Documented by: [id number] Admin: 01/02/20 15:29 Dose: 999 mls/hr Documented by: [id number] Promethazine HCl (Phenergan) 12.5 mg in 50.5 mls @ 202 mls/hr IV NOW STA Stop: 01/02/20 15:29 Last Infusion: 01/02/20 15:45 Dose: 0 mls/hr Documented by: [id number] Admin: 01/02/20 15:30 Dose: 202 mls/hr Documented by: [id number] Piperacillin Sod/Tazobactam Sod (Zosyn) 4.5 gm in 120 mls @ 240 mls/hr IV NOW ONE Stop: 01/02/20 17:41 Last Infusion: 01/02/20 18:01 Dose: 0 mls/hr Documented by: [id number] Admin: 01/02/20 17:34 Dose: 240 mls/hr Documented by: [id number] Sodium Chloride (Nss 1000ml) 2,000 mls @ 999 mls/hr IV .Q2H1M ONE Stop: 01/02/20 19:56 Last Infusion: 01/03/20 03:43 Dose: 0 mls/hr Documented by: [id number] Infusion: 01/02/20 19:00 Dose: 0 mls/hr Documented by: [id number] Admin: 01/02/20 18:00 Dose: 999 mls/hr Documented by: [id number] Potassium Chloride (K Steffen / Wtr) 10 meq in 100 mls @ 100 mls/hr IV Q1H [facility] Stop: 01/03/20 03:29 Last Infusion: 01/03/20 05:32 Dose: 0 mls/hr Documented by: [id number] Admin: 01/03/20 03:58 Dose: 100 mls/hr Documented by: [id number] Infusion: 01/03/20 03:43 Dose: 100 mls/hr Documented by: [id number] Admin: 01/03/20 02:43 Dose: 100 mls/hr Documented by: [id number] Infusion: 01/03/20 02:36 Dose: 100 mls/hr Documented by: [id number] Admin: 01/03/20 01:36 Dose: 100 mls/hr Documented by: [id number] Infusion: 01/03/20 00:48 Dose: 100 mls/hr Documented by: [id number] Admin: 01/02/20 23:48 Dose: 100 mls/hr Documented by: [id number] Indomethacin (Indocin) Confirm Administered Dose 100 mg OK .STK-MED ONE Stop: 01/03/20 10:14 Last Admin: 01/03/20 12:09 Dose: 100 mg Documented by: [id number] Iothalamate Meglumine (Conray 60%) Confirm Administered Dose 50 ml .ROUTE .STK-M ED ONE Stop: 01/03/20 15:35 Last Admin: 01/03/20 15:42 Dose: Not Given Documented by: [id number] Ioversol (Optiray 320 100ml) 93 ml IV ONCE PRN PRN Reason: Interaction Checking Stop: 01/06/20 16:30 Last Admin: 01/02/20 16:32 Dose: 93 ml Documented by: [id number] Lidocaine HCl (Xylocaine 1% (Local)) Confirm Administered Dose 20 ml .ROUTE .STK-MED ONE Stop: 01/03/20 10:14 Last Admin: 01/03/20 14:29 Dose: Not Given Documented by: [id number] Metoclopramide HCl (Reglan) 10 mg IV ONE ONE Stop: 01/03/20 15:47 Last Admin: 01/03/20 16:07 Dose: 10 mg Documented by: [id number] Morphine Sulfate (Morphine Sulfate) 4 mg IV NOW STA Stop: 01/02/20 15:16 Last Admin: 01/02/20 15:30 Dose: 4 mg Documented by: [id number] Medical Decision Making Differential Diagnosis Differential diagnosis: Gallbladder pathology, pancreatitis, gastritis, ureteral stone, musculoskeletal pain, bowel obstruction, viral versus bacterial GI illness, among others Medical Records Attestation: I reviewed the patient's medical records. Home Medications Current Medication List: was personally reviewed by me Laboratory Data Attestation: I reviewed the patient's lab results. Result diagrams: 01/03/20 06:11 01/03/20 06:11 Lab Results 01/02/20 01/02/20 01/02/20 Range/Units 15:25 15:25 15:25 WBC 13.23 H (4.8-10.8) K/uL RBC 4.41 (4.2-5.4) M/uL Hgb 12.8 (12.0-16.0) g/dL Hct 37.8 (37-47) % MCV 85.7 (80-100) fL MCH 29.0 (25-34) pg MCHC 33.9 (32-36) g/dL RDW Std Deviation 44.1 (36.4-46.3) fL RDW Coeff of José 14.1 (11.5-14.5) % Plt Count 298 (130-400) K/uL MPV 9.3 (7.4-10.4) fL Immature Gran % (Auto) 0.2 % Neut % (Auto) 88.2 % Lymph % (Auto) 3.9 % [place] % (Auto) 7.1 % Eos % (Auto) 0.5 % Baso % (Auto) 0.1 % Immature Gran # (Auto) 0.03 H (0.00-0.02) K/uL Neut # (Auto) 11.66 H (1.4-6.5) K/uL Lymph # (Auto) 0.52 L (1.2-3.4) K/uL [place] # (Auto) 0.94 H (0.11-0.59) K/uL Eos # (Auto) 0.07 (0-0.5) K/uL Baso # (Auto) 0.01 (0-0.2) K/uL Sodium 138 (136-145) mmol/L Potassium 3.2 L (3.5-5.1) mmol/L Chloride 103 (98-107) mmol/L Carbon Dioxide 30 (21-32) mmol/L Anion Gap 5.0 (3-11) BUN 14 (7-18) mg/dl Creatinine 0.79 (0.6-1.2) mg/dl Est Cr Clr Drug Dosing 78.0 ml/min Est GFR ( Amer) 109.3 Est GFR (Non-Af Amer) 94.3 BUN/Creatinine Ratio 17.4 (10-20) Glucose 108 H (70-99) mg/dl Calcium 9.3 (8.5-10.1) mg/dl Total Bilirubin 6.5 H (0.2-1) mg/dl AST 748 H (15-37) U/L ALT 1274 H (12-78) U/L Alkaline Phosphatase 338 H (45-117) U/L Total Protein 8.1 (6.4-8.2) gm/dl Albumin 4.0 (3.4-5.0) gm/dl Globulin 4.1 H (2.5-4.0) gm/dl Albumin/Globulin Ratio 1.0 (0.9-2) Lipase 826 H (73-393) U/L HCG, Qual Negative (Negative) Urine Color Urine Appearance (Clear) Urine pH (4.5-7.5) Ur Specific [place] (1.000-1.030) Urine Protein (Negative) Urine Glucose (UA) (Negative) Urine Ketones (Negative) Urine Blood (Negative) Urine Nitrite (Negative) Urine Bilirubin (Negative) Urine Urobilinogen (Negative) Ur Leukocyte Esterase (Negative) 01/02/20 Range/Units 16:48 WBC (4.8-10.8) K/uL RBC (4.2-5.4) M/uL Hgb (12.0-16.0) g/dL Hct (37-47) % MCV (80-100) fL MCH (25-34) pg MCHC (32-36) g/dL RDW Std Deviation (36.4-46.3) fL RDW Coeff of José (11.5-14.5) % Plt Count (130-400) K/uL MPV (7.4-10.4) fL Immature Gran % (Auto) % Neut % (Auto) % Lymph % (Auto) % [place] % (Auto) % Eos % (Auto) % Baso % (Auto) % Immature Gran # (Auto) (0.00-0.02) K/uL Neut # (Auto) (1.4-6.5) K/uL Lymph # (Auto) (1.2-3.4) K/uL [place] # (Auto) (0.11-0.59) K/uL Eos # (Auto) (0-0.5) K/uL Baso # (Auto) (0-0.2) K/uL Sodium (136-145) mmol/L Potassium (3.5-5.1) mmol/L Chloride (98-107) mmol/L Carbon Dioxide (21-32) mmol/L Anion Gap (3-11) BUN (7-18) mg/dl Creatinine (0.6-1.2) mg/dl Est Cr Clr Drug Dosing ml/min Est GFR ( Amer) Est GFR (Non-Af Amer) BUN/Creatinine Ratio (10-20) Glucose (70-99) mg/dl Calcium (8.5-10.1) mg/dl Total Bilirubin (0.2-1) mg/dl AST (15-37) U/L ALT (12-78) U/L Alkaline Phosphatase (45-117) U/L Total Protein (6.4-8.2) gm/dl Albumin (3.4-5.0) gm/dl Globulin (2.5-4.0) gm/dl Albumin/Globulin Ratio (0.9-2) Lipase (73-393) U/L HCG, Qual (Negative) Urine Color Dark Yellow Urine Appearance Clear (Clear) Urine pH 7.5 (4.5-7.5) Ur Specific [place] 1.024 (1.000-1.030) Urine Protein Negative (Negative) Urine Glucose (UA) Negative (Negative) Urine Ketones Negative (Negative) Urine Blood Negative (Negative) Urine Nitrite Negative (Negative) Urine Bilirubin 1+ H (Negative) Urine Urobilinogen Negative (Negative) Ur Leukocyte Esterase Negative (Negative) Imaging Data Attestation: I personally reviewed and interpreted this imaging study as follows: Radiologist's Impression: CT abdomen and pelvis with IV contrast only 1. Mild gallbladder distention with mild gallbladder wall thickening and pericholecystic fluid. There is associated mild dilatation of the common hepatic duct and common bile duct. Clinical correlation in regards to acute cholecystitis is recommended. Although a common bile duct calculus is not visualized, given the common bile duct dilatation, this must be considered. 2. No evidence of bowel obstruction. No evidence of free air 3. Nonobstructing left renal calculus 4. Normal appendix. No evidence of acute diverticulitis. ACT 112: Negative or not required by law. Electronically signed by: Julio Pedroza M.D. 01/02/2020 4:45 PM Dictated: 01/02/20 1636 Transcribed: 01/02/[address] [facility] Narrative This patient is a 39-year-old female who presents to the emergency department complaining of back pain now radiating to the abdomen and vomiting. On exam, she was uncomfortable. Vital signs were stable. She was tender in the epigastric and right upper quadrant. Labs revealed leukocytosis and significant abnormalities in the LFTs and lipase. Imaging is consistent with possible cholecystitis. Surgery, GI and the hospitalist service were consulted. She was covered with IV antibiotics. The patient will be admitted for further treatment. She remained stable in the emergency department. Impression & Plan Cholecystitis, Cholangitis Discharge Plan Visit Data *Final* Discharge Date/Time: 01/02/20 21:20 Chief Complaint: Abdominal Pain Stated Complaint: BACK PAIN/ ABDOMINAL PAIN ED Provider: Rodney Salomon ED Midlevel Provider: Natasha Diego Discharge Problem: Cholecystitis, Cholangitis Patient Disposition: Admitted As Inpatient Condition: Fair Discharge Instructions Interventions: ED Discharge Assessment Last Done: 01/02/20 21:20
[2020-01-02 15:58] LABS: Pregnancy Test, Serum Negative (Negative)
[2020-01-02 16:05] LABS: BUN Creatinine Ratio 17.4 (10-20); Bilirubin,Total 6.5 mg/dl (0.2-1); Calcium 9.3 mg/dl (8.5-10.1); Est GFR (African American) 109.3; Est GFR (Non-African American) 94.3; Globulin 4.1 gm/dl (2.5-4.0); Potassium 3.2 mmol/L (3.5-5.1); Total Protein 8.1 gm/dl (6.4-8.2)
[2020-01-02] MEDS ORDERED: IOVERSOL 100ml IV PRN (16:31)
--- NOTE | 2020-01-02 16:47 | CT Scan Report ---
CT abd pelvis IV con only CLINICAL HISTORY: back pain epigastric/RUQ pain vomiting COMPARISON STUDY: 08/16/2017 TECHNIQUE: Patient was scanned in a dynamic helical fashion during intravenous administration of 93 c c of Optiray 320. A dose lowering technique was utilized adhering to the principles of ALARA. CT DOSE: 252.47 mGy.cm FINDINGS: Lower chest: There are minimal dependent atelectatic changes Liver: There is stable 6 mm right hepatic lobe bilobed hypodensity. This is felt to be benign. Gallbladder: The gallbladder is mildly distended. There is gallbladder wall thickening and pericholec ystic fluid. The common bile duct measures 9 mm. Spleen: Normal in size and attenuation. Pancreas: Unremarkable. Adrenal glands: Unremarkable. Kidneys: There is a 7 mm right renal cortical cyst. 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 There is a punctate nonobstructing lower pole left renal calculus. There is no hydronephrosis. There is no ureteral dilatation. Bowel: There are no transition zones to indicate bowel obstruction. There is no evidence of acute div erticulitis. The appendix appears normal. Peritoneum: There is a small amount of free pelvic fluid, likely physiologic. There is no free intrap eritoneal air. Vasculature: The abdominal aorta is normal in course and caliber. Adenopathy: None. Pelvic viscera: No bladder abnormalities are visualized. There is equivocal small anterior fundal redding rine fibroid Skeletal structures: No destructive osseous lesions are seen. IMPRESSION: 1. Mild gallbladder distention with mild gallbladder wall thickening and pericholecystic fluid. There is associated mild dilatation of the common hepatic duct and common bile duct. Clinical correlation in regards to acute cholecystitis is recommended. Although a common bile duct calculus is not visuali zed, given the common bile duct dilatation, this must be considered. 2. No evidence of bowel obstruction. No evidence of free air 3. Nonobstructing left renal calculus 4. Normal appendix. No evidence of acute diverticulitis. ACT 112: Negative or not required by law. Electronically signed by: Julio Pedroza M.D. 01/02/2020 4:45 PM
[2020-01-02 16:57] LABS: Appearance Urine Clear (Clear); Blood Urine Negative (Negative); Color Urine Dark Yellow; Glucose Urine UA Negative (Negative); Ketones Urine Negative (Negative); Leukocyte Esterase Urine Negative (Negative); Nitrite Urine Negative (Negative); Protein Urine Negative (Negative); Specific Gravity Urine 1.024 (1.000-1.030); Urobilinogen Urine Negative (Negative); pH Urine 7.5 (4.5-7.5)
[2020-01-02 17:04] LABS: Bilirubin Urine 1+ (Negative); Ictotest Urine Positive (Negative)
[2020-01-02] MEDS ORDERED: PIPERACILL/TAZOBAC CONSULT ACTIVE PRN ×2 (17:12→23:15)
[2020-01-02] MEDS ORDERED: PIPERACILLIN/TAZOBACTAM 4.5 GM/120 ML BAG IV ONE (17:12)
[2020-01-02] MEDS ORDERED: SODIUM CHLORIDE 0.9% 1000ML 2,000 ML IV ONE (17:56)
--- NOTE | 2020-01-02 20:27 | History & Physical Report ---
Date of Service January 02, 2020 Assessment & Plan (1) Cholecystitis: 39 yo F with no significant PMH presents with concerns of abd pain found to have signs of possible cholecystitis on CT Abd/Pelvis and GB U/S. Cholecystitis -CT Abd/Pelvis: Mild gallbladder distention with mild gallbladder wall thickening and pericholecystic fluid. There is associated mild dilatation of the common hepatic duct and common bile duct -GB U/S (STATRad): Dependent gallstones along with sludge identified. There is GB wall thickening. Trace pericholecystic fluid is seen -plan for ERCP in AM -will make pt NPO -IVF with NSS at 80 mls/hr -cont IV Zosyn for antibiotic coverage -pain management with IV Morphine 2mg q4h prn -IV Zofran prn for any nausea -appreciate Sx consult Dr. Wadsworth: recommending to do laparoscopic cholecystectomy after ERCP -appreciate GI Consult Hypokalemia -K 3.2 on admit -repleted on admission with 4 bags K riders 10meq -daily BMP FEN/GI: NPO. NSS at 80 DVT Prophylaxis: Low Risk per Admission Calc. SCD's, Ambulation Full Code Dispo: Admission to Med Surg History of Present Illness Chief Complaint: abd pain Primary Care Provider: Mei Mei MD 39 yo F with no significant PMH presents to [facility] with concerns of abd pain. Initially, pain started as mid-upper back pain about 3 wks ago. This was initially managed with ibuprofen for ~1wk after which pain worsened. Pt got script for tramadol which also managed the pain for about 1 wk after which pain was not managed. Pt's PCP then prescribed muscle relaxer and prednisone 10mg, which did not really help. Pain radiated into epigastric about 2-3 days ago. Today pain was not bearable so pt presented into ED. Pain described as constant and sharp. 9/10 severity at worst. No alleviating or exacerbating factors. No previous such occurrence like this before. Associated N/V with 2-3 episodes this AM and decreased appetite. Pt otherwise denies any fever, chills, diarrhea, hematochezia/melena, ingestion of suspicious foods, CP, SOB, palpitations, MONTOYA, urinary sxs, sick contacts or recent travel. Pt with no other acute concerns or complaints. Abd/Pelvis CT: Mild gallbladder distention with mild gallbladder wall thickening and pericholecystic fluid. There is associated mild dilatation of the common hepatic duct and common bile duct. No evidence of bowel obstruction. No evidence of free air. Nonobstructing left renal calculus. Normal appendix. No evidence of acute diverticulitis. GB U/S (STATRad): Dependent gallstones along with sludge identified. There is GB wall thickening. Trace pericholecystic fluid is seen Pertinent Labs: WBC 13.2, K 3.2, T bili 6.5, AST 748, ALT 1274, Alk Phos 338, Lipase 826 ER Course: IV Morphine, Zosyn, Promethazine, NSS Surgical Hx: Abd- 2 C-sections, last in 2018 Social- Denies tobacco, alcohol, illicit drug use Allergies Allergy/AdvReac Type Severity Reaction Status Date / Time No Known Allergies Allergy Unverified 01/02/20 15:13 Home Medications Home Medications Medication Instructions Recorded Confirmed Type cyclobenzaprine 5 mg tablet 5 mg PO TID PRN #20 tab 12/30/19 01/02/20 Rx prednisone 10 mg tablet See Rx Instructions PO DAILY #30 12/30/19 01/02/20 Rx tab tramadol 37.5 mg-acetaminophen 325 See Rx Instructions PO Q6H PRN #30 12/30/19 01/02/20 Rx mg tablet tab omeprazole 40 mg capsule,delayed 40 mg PO DAILY #30 cap 01/02/20 01/02/20 Rx release ondansetron HCl 4 mg tablet 4 mg PO Q6H PRN #20 tab 01/02/20 01/02/20 Rx Past Med/Surg History Medical History No pertinent past medical history Surgical History History of section History of knee surgery Family History Father Hyperlipidemia Cardiac disorder Hypertension Kidney stone Glaucoma Mother Hyperlipidemia Hypothyroidism Grandmother Diabetes Stomach cancer Unknown Cardiac disorder Hypertension Kidney stone Denies family history of Ovarian cancer Prostate cancer Myocardial infarction Breast cancer Colorectal cancer Social History Preferred Language: Hungarian Communication Ability: Effective Visual Impairment: No Limitations Hearing Ability: Normal Canvas Cutter Machine Required: No Beliefs That Will Affect Care: None marital status: Current Living Situation: Spouse current occupational status: employed 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 Other Information That Helps Us Care for You: No Feels Safe at Home: Yes Safety Concerns: Feels Safe At This Time Smoking Status: Never smoker Do You Dip or Chew Tobacco: No ; Second Hand Exposure: No ; Tobacco Cessation Education Requested by Patient: No Hx Alcohol Use: No Hx Substance Use: No Childhood Exposure to Second-Hand Smoke: No Dental Care, Regularly: No Physical Activity Frequency: Does not Exercise Seatbelt Use: always Sunscreen Use: Yes Review of Systems Review of Systems: All systems reviewed & are unremarkable except as noted in HPI & below Physical Exam Constitutional: WD/WN, vitals as above Eyes: PERRL, conjunctivae normal, anicteric sclerae ENMT: external ear and nose normal, oropharynx normal Respiratory: normal respiratory effort, lungs clear to auscultation Cardiovascular: RRR, no murmur, no edema Gastrointestinal (Abdomen): Inspection/Auscultation: normal bowel sounds; abdomen not distended Percussion/Palpation: + abdomen tender (TTP Epigastric, RUQ); no guarding Skin: no rashes, warm and dry Psychiatric: A+Ox3, euthymic affect Results & Data Results & Data ([facility]) Vital Signs (Past 12 Hours) Vital Signs Temp Pulse Pulse Resp BP BP Pulse Ox 01/02/20 19:23 80 16 106/69 99 01/02/20 18:02 83 20 110/71 98 01/02/20 16:49 77 16 114/58 L 99 01/02/20 14:27 37.1 C 95 H 20 102/61 99 Laboratory Results Laboratory Results - last 24 hr 01/02/20 01/02/20 01/02/20 15:25 15:25 15:25 WBC 13.23 H RBC 4.41 Hgb 12.8 Hct 37.8 MCV 85.7 MCH 29.0 MCHC 33.9 RDW Std Deviation 44.1 RDW Coeff of José 14.1 Plt Count 298 MPV 9.3 Immature Gran % (Auto) 0.2 Neut % (Auto) 88.2 Lymph % (Auto) 3.9 [place] % (Auto) 7.1 Eos % (Auto) 0.5 Baso % (Auto) 0.1 Immature Gran # (Auto) 0.03 H Neut # (Auto) 11.66 H Lymph # (Auto) 0.52 L [place] # (Auto) 0.94 H Eos # (Auto) 0.07 Baso # (Auto) 0.01 Sodium 138 Potassium 3.2 L Chloride 103 Carbon Dioxide 30 Anion Gap 5.0 BUN 14 Creatinine 0.79 Est Cr Clr Drug Dosing 78.0 Est GFR ( Amer) 109.3 Est GFR (Non-Af Amer) 94.3 BUN/Creatinine Ratio 17.4 Glucose 108 H Calcium 9.3 Total Bilirubin 6.5 H AST 748 H ALT 1274 H Alkaline Phosphatase 338 H Total Protein 8.1 Albumin 4.0 Globulin 4.1 H Albumin/Globulin Ratio 1.0 Lipase 826 H HCG, Qual Negative Urine Color Urine Appearance Urine pH Ur Specific [place] Urine Protein Urine Glucose (UA) Urine Ketones Urine Blood Urine Nitrite Urine Bilirubin Urine Urobilinogen Ur Leukocyte Esterase 01/02/20 16:48 WBC RBC Hgb Hct MCV MCH MCHC RDW Std Deviation RDW Coeff of José Plt Count MPV Immature Gran % (Auto) Neut % (Auto) Lymph % (Auto) [place] % (Auto) Eos % (Auto) Baso % (Auto) Immature Gran # (Auto) Neut # (Auto) Lymph # (Auto) [place] # (Auto) Eos # (Auto) Baso # (Auto) Sodium Potassium Chloride Carbon Dioxide Anion Gap BUN Creatinine Est Cr Clr Drug Dosing Est GFR ( Amer) Est GFR (Non-Af Amer) BUN/Creatinine Ratio Glucose Calcium Total Bilirubin AST ALT Alkaline Phosphatase Total Protein Albumin Globulin Albumin/Globulin Ratio Lipase HCG, Qual Urine Color Dark Yellow Urine Appearance Clear Urine pH 7.5 Ur Specific [place] 1.024 Urine Protein Negative Urine Glucose (UA) Negative Urine Ketones Negative Urine Blood Negative Urine Nitrite Negative Urine Bilirubin 1+ H Urine Urobilinogen Negative Ur Leukocyte Esterase Negative Medications Administered Current Inpatient Medications Ioversol (Optiray 320 100ml) 93 ml IV ONCE PRN PRN Reason: Interaction Checking Stop: 01/06/20 16:30 Last Admin: 01/02/20 16:32 Dose: 93 ml Documented by: Miscellaneous Information (Consult) 1 ea N/A UD PRN PRN Reason: Consult Stop: 02/01/20 17:11 Code Status & VTE Plan Code Status FULL Supervising Physician Co-Signing Physician Notes Patient seen and examined, chart reviewed, case discussed with Dr. Perez and I agree with the assessment and plan as documented above. Briefly, patient is a 39 yo female presenting with acute cholecystitis, concern for cholangitis. She had been having back pain x 3 weeks which was being treated with anti- inflammatories. Today with abdominal/epigastric discomfort as well On exam she is afebrile, HD stable NAD HEENT - NC/AT, PERRL, +scleral icterus and sublingual jaundice present, neck supple, no JVD Heart - +S1/S2, regular, no m/r/g Lungs -CTA Abd - +BS, soft, tender in RUQ with voluntary guarding, tenderness in epigastric area, no rebound or peritonitis Ext - warm, well perfused, no clubbing/cyanosis/edema Labs and images reviewed. Assessment/Plan: 39yo C female with acute cholecystitis, concern for CBD stone/developing cholangitis -Admit to medical floor -NPO for procedures/surgery in AM -Zosyn 3.375gm IV q 8 -GI consultation appreciated - ERCP for tomorrow at 09:00 -General Surgery consultation appreciated - tentatively planned for cholecystectomy after ERCP -Remainder of plan as above Resident Activity Tracking Resident Involvement: Resident Care Provided Care Provided: Adult Hospital Medicine
--- NOTE | 2020-01-02 21:50 | Surgery Consultation ---
Date of Consultation January 02, 2020 Assessment & Plan (1) Cholecystitis: pt is a 39 year-old female who presents to ER with back and RUQ pain, IMP: acute cholecystitis, cholangitis, choledocholithiasis Plan, I recommend to do laparoscopic cholecystectomy, possible open or cholangiogram following after ERCP,D/W benefits, risks and alternatives of the surgery, the risks - infection,b bleeding, injury CBD, biliary leak, pt understood, she agrees with the surgery, I answered all questions, I agree with hospitalist management, U/S study for gallbladder to R/O cholecystitis and gallstone, will F/U Thanks, (2) Choledocholithiasis: (3) Cholangitis: History of Present Illness History of Present Illness History of Present Illness Chief Complaint: abd pain Primary Care Provider: Mei Mei MD 39 yo F with no significant PMH presents to [facility] with concerns of abd pain. Initially, pain started as mid-upper back pain about 3 wks ago. This was initially managed with ibuprofen for ~1wk after which pain worsened. Pt got script for tramadol which also managed the pain for about 1 wk after which pain was not managed. Pt's PCP then prescribed muscle relaxer and prednisone 10mg, which did not really help. Pain radiated into epigastric about 2-3 days ago. Today pain was not bearable so pt presented into ED. Pain described as constant and sharp. 9/10 severity at worst. No alleviating or exacerbating factors. No previous such occurrence like this before. Associated N/V with 2-3 episodes this AM and decreased appetite. Pt otherwise denies any fever, chills, diarrhea, hematochezia/melena, ingestion of suspicious foods, CP, SOB, palpitations, MONTOYA, urinary sxs, sick contacts or recent travel. Pt with no other acute concerns or complaints. I ( Rogerio Wadsworth MD ) got a call for consult acute cholecystitis, I reviewed pt's H/P , labs, CT scan with pt. pt is still have have RUQ pain. Abd/Pelvis CT: Mild gallbladder distention with mild gallbladder wall thickening and pericholecystic fluid. There is associated mild dilatation of the common hepatic duct and common bile duct. No evidence of bowel obstruction. No evidence of free air. Nonobstructing left renal calculus. Normal appendix. No evidence of acute diverticulitis. Pertinent Labs: WBC 13.2, K 3.2, T bili 6.5, AST 748, ALT 1274, Alk Phos 338, Lipase 826 ER Course: IV Morphine, Zosyn, Promethazine, NSS Surgical Hx: Abd- 2 C-sections, last in 2018 Social- Denies tobacco, alcohol, illicit drug use Allergies Allergy/AdvReac Type Severity Reaction Status Date / Time No Known Allergies Allergy Unverified 01/02/20 15:13 Home Medications Home Medications Medication Instructions Recorded Confirmed Type cyclobenzaprine 5 mg tablet 5 mg PO TID PRN #20 tab 12/30/19 01/02/20 Rx prednisone 10 mg tablet See Rx Instructions PO DAILY #30 12/30/19 01/02/20 Rx tab tramadol 37.5 mg-acetaminophen 325 See Rx Instructions PO Q6H PRN #30 12/30/19 01/02/20 Rx mg tablet tab omeprazole 40 mg capsule,delayed 40 mg PO DAILY #30 cap 01/02/20 01/02/20 Rx release ondansetron HCl 4 mg tablet 4 mg PO Q6H PRN #20 tab 01/02/20 01/02/20 Rx Past Med/Surg History Medical History No pertinent past medical history Surgical History History of section History of knee surgery Family History Father Hyperlipidemia Cardiac disorder Hypertension Kidney stone Glaucoma Mother Hyperlipidemia Hypothyroidism Grandmother Diabetes Stomach cancer Unknown Cardiac disorder Hypertension Kidney stone Denies family history of Ovarian cancer Prostate cancer Myocardial infarction Breast cancer Colorectal cancer Social History Preferred Language: Belarusian Communication Ability: Effective Visual Impairment: No Limitations Hearing Ability: Normal marital status: Current Living Situation: Spouse current occupational status: employed 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 Feels Safe at Home: Yes Smoking Status: Never smoker Hx Alcohol Use: No Hx Substance Use: No Childhood Exposure to Second-Hand Smoke: No Dental Care, Regularly: No Physical Activity Frequency: Does not Exercise Seatbelt Use: always Sunscreen Use: Yes Review of Systems Review of Systems: All systems reviewed & are unremarkable except as noted in HPI & below Allergies Allergy/AdvReac Type Severity Reaction Status Date / Time No Known Allergies Allergy Unverified 01/02/20 15:13 Home Medications Home Medications Medication Instructions Recorded Confirmed Type cyclobenzaprine 5 mg tablet 5 mg PO TID PRN #20 tab 12/30/19 01/02/20 Rx prednisone 10 mg tablet See Rx Instructions PO DAILY #30 12/30/19 01/02/20 Rx tab tramadol 37.5 mg-acetaminophen 325 See Rx Instructions PO Q6H PRN #30 12/30/19 01/02/20 Rx mg tablet tab omeprazole 40 mg capsule,delayed 40 mg PO DAILY #30 cap 01/02/20 01/02/20 Rx release ondansetron HCl 4 mg tablet 4 mg PO Q6H PRN #20 tab 01/02/20 01/02/20 Rx Patient History Medical History No pertinent past medical history Surgical History History of section History of knee surgery Family History Father Hyperlipidemia Cardiac disorder Hypertension Kidney stone Glaucoma Mother Hyperlipidemia Hypothyroidism Grandmother Diabetes Stomach cancer Unknown Cardiac disorder Hypertension Kidney stone Denies family history of Ovarian cancer Prostate cancer Myocardial infarction Breast cancer Colorectal cancer Social History Preferred Language: Belarusian Communication Ability: Effective Visual Impairment: No Limitations Hearing Ability: Normal marital status: Current Living Situation: Spouse current occupational status: employed 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 Feels Safe at Home: Yes Smoking Status: Never smoker Hx Alcohol Use: No Hx Substance Use: No Childhood Exposure to Second-Hand Smoke: No Dental Care, Regularly: No Physical Activity Frequency: Does not Exercise Seatbelt Use: always Sunscreen Use: Yes Review of Systems Review of Systems: All systems reviewed & are unremarkable except as noted in HPI & below Constitutional: as per Subjective / HPI Eyes: Glaucoma Ear, Nose, Mouth, Throat: as per Subjective / HPI Respiratory: as per Subjective / HPI Cardiovascular: as per Subjective / HPI Gastrointestinal: as per Subjective / HPI Genitourinary: ureteral calculus Musculoskeletal: as per Subjective / HPI Integumentary: as per Subjective / HPI Neurologic: as per Subjective / HPI Psychiatric: as per Subjective / HPI Endocrine: as per Subjective / HPI Hematologic / Lymphatic: as per Subjective / HPI Allergy / Immunological: as per Subjective / HPI Physical Exam Constitutional: WD/WN, vitals as above well developed and well nourished Eyes: PERRL, conjunctivae normal, anicteric sclerae jaundice ENMT: external ear and nose normal, oropharynx normal Neck: trachea midline, no thyromegaly Respiratory: normal respiratory effort, lungs clear to auscultation normal respiratory effort Cardiovascular: RRR, no murmur, no edema Rate/Rhythm: regular rate and regu lar rhythm Heart Sounds: normal S1 and normal S2 Gastrointestinal (Abdomen): normal bowel sounds, soft, nontender, no hepatosplenomegaly Percussion/Palpation: + abdomen tender and abdomen soft tenderness at RUQ, no rebound pain, no distend, BS + Musculoskeletal: no cyanosis or clubbing, extremities motor strength 5/5 Skin: no rashes, warm and dry Neurologic: patellar DTR's 2+ bilat, sensation intact Psychiatric: Orientation: alert and oriented x 3 Results & Data Vital Signs (Past 12 Hours) Vital Signs Temp Pulse Pulse Resp BP BP Pulse Ox 01/02/20 21:15 73 20 108/64 98 01/02/20 19:23 80 16 106/69 99 01/02/20 18:02 83 20 110/71 98 01/02/20 16:49 77 16 114/58 L 99 01/02/20 14:27 37.1 C 95 H 20 102/61 99 Laboratory Results Abnormal lab results 01/02/20 01/02/20 01/02/20 Range/Units 15:25 15:25 16:48 WBC 13.23 H (4.8-10.8) K/uL Immature Gran # (Auto) 0.03 H (0.00-0.02) K/uL Neut # (Auto) 11.66 H (1.4-6.5) K/uL Lymph # (Auto) 0.52 L (1.2-3.4) K/uL [place] # (Auto) 0.94 H (0.11-0.59) K/uL Potassium 3.2 L (3.5-5.1) mmol/L Glucose 108 H (70-99) mg/dl Total Bilirubin 6.5 H (0.2-1) mg/dl AST 748 H (15-37) U/L ALT 1274 H (12-78) U/L Alkaline Phosphatase 338 H (45-117) U/L Globulin 4.1 H (2.5-4.0) gm/dl Lipase 826 H (73-393) U/L Urine Bilirubin 1+ H (Negative) Diagnostic Findings CT abd pelvis IV con only CLINICAL HISTORY: back pain epigastric/RUQ pain vomiting COMPARISON STUDY: 08/16/2017 TECHNIQUE: Patient was scanned in a dynamic helical fashion during intravenous administration of 93 cc of Optiray 320. A dose lowering technique was utilized adhering to the principles of ALARA. CT DOSE: 252.47 mGy.cm FINDINGS: Lower chest: There are minimal dependent atelectatic changes Liver: There is stable 6 mm right hepatic lobe bilobed hypodensity. This is felt to be benign. Gallbladder: The gallbladder is mildly distended. There is gallbladder wall thickening and pericholecystic fluid. The common bile duct measures 9 mm. Spleen: Normal in size and attenuation. Pancreas: Unremarkable. Adrenal glands: Unremarkable. Kidneys: There is a 7 mm right renal cortical cyst. 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 There is a punctate nonobstructing lower pole left renal calculus. There is no hydronephrosis. There is no ureteral dilatation. Bowel: There are no transition zones to indicate bowel obstruction. There is no evidence of acute diverticulitis. The appendix appears normal. Peritoneum: There is a small amount of free pelvic fluid, likely physiologic. There is no free intraperitoneal air. Vasculature: The abdominal aorta is normal in course and caliber. Adenopathy: None. Pelvic viscera: No bladder abnormalities are visualized. There is equivocal small anterior fundal uterine fibroid Skeletal structures: No destructive osseous lesions are seen. IMPRESSION: 1. Mild gallbladder distention with mild gallbladder wall thickening and pericholecystic fluid. There is associated mild dilatation of the common hepatic duct and common bile duct. Clinical correlation in regards to acute cholecystitis is recommended. Although a common bile duct calculus is not visualized, given the common bile duct dilatation, this must be considered. 2. No evidence of bowel obstruction. No evidence of free air 3. Nonobstructing left renal calculus 4. Normal appendix. No evidence of acute diverticulitis.
[2020-01-02] MEDS ORDERED: ACETAMINOPHEN 325 MG TAB PO PRN (23:15)
[2020-01-02] MEDS ORDERED: ONDANSETRON INJ 2 MG/ML 2 ML VIAL IV PRN (23:15)
[2020-01-02] MEDS ORDERED: MoRPHine SULFATE 2 MG/ML CARP IV PRN (23:15)
[2020-01-02] MEDS: POTASSIUM CHLORIDE / WTR 10 MEQ/100 ML PLCT IV SCH (23:48)
[2020-01-02] MEDS: SODIUM CHLORIDE 0.9% 1000ML 1,000 ML IV SCH (23:48)
[2020-01-02] MEDS: PIPERACILLIN/TAZOBACTAM 3.375 GM in DEXTROSE 5% 100 ML IV SCH (23:49)
[2020-01-03] MEDS: POTASSIUM CHLORIDE / WTR 10 MEQ/100 ML PLCT IV SCH ×3 (01:36→03:58)
--- NOTE | 2020-01-03 01:43 | Billing Data ---
Date of Service January 02, 2020 Coding Level of Care Code 62199 Initial Inpt Care Lvl 2
[2020-01-03 06:29] LABS: Basophils # (auto) 0.01 K/uL (0-0.2); Basophils % (auto) 0.2 %; Eosinophils # (auto) 0.33 K/uL (0-0.5); Eosinophils % (auto) 5.4 %; Hematocrit (blood only) 34.4 % (37-47); Hemoglobin 11.2 g/dL (12.0-16.0); Immature Granulocytes # (auto) 0.02 K/uL (0.00-0.02); Immature Granulocytes % (auto) 0.3 %; Lymphocytes # (auto) 1.25 K/uL (1.2-3.4); Lymphocytes % (auto) 20.4 %; Mean Corpuscular Hemoglobin 28.4 pg (25-34); Mean Corpuscular Hgb Conc 32.6 g/dL (32-36); Mean Corpuscular Volume 87.3 fL (80-100); Mean Platelet Volume 9.3 fL (7.4-10.4); Monocytes # (auto) 0.47 K/uL (0.11-0.59); Monocytes % (auto) 7.7 %; Neutrophils # (auto) 4.04 K/uL (1.4-6.5); Platelet Count 269 K/uL (130-400); RDW Coefficient of Variation 14.4 % (11.5-14.5); Red Blood Count 3.94 M/uL (4.2-5.4); White Blood Count 6.12 K/uL (4.8-10.8)
[2020-01-03 07:04] LABS: Albumin Level 3.1 gm/dl (3.4-5.0); BUN Creatinine Ratio 11.2 (10-20); Bilirubin,Total 6.2 mg/dl (0.2-1); Calcium 8.5 mg/dl (8.5-10.1); Creatinine Clr Calc Pharmacy 78.6 ml/min; Est GFR (African American) 114.5; Est GFR (Non-African American) 98.8; Globulin 3.2 gm/dl (2.5-4.0); Potassium 3.8 mmol/L (3.5-5.1); Total Protein 6.3 gm/dl (6.4-8.2)
--- NOTE | 2020-01-03 07:17 | Anesthesiology Consultation ---
Date of Service January 03, 2020 Assessment & Plan (1) Encounter for pre-operative examination: Chart Review Chart Review: Acceptable Risk for Surgery History Surgery Operation Date: 01/02/20 09:00 Proposed Procedures p Laparoscopic Cholecystectomy - Rogerio Wadsworth MD s Endoscopic Retrograde Cholangiopapooja Javed MD Operation Date: 01/03/20 09:00 Proposed Procedures p Endoscopic Retrograde Cholangiopapooja Javed MD Operation Date: 01/03/20 09:00 Proposed Procedures p Endoscopic Retrograde Cholangiopancreato Bud Javed MD s Laparoscopic Cholecystectomy - Rogerio Wadsworth MD Height/Weight Height: 5 ft 2 in Weight: 52.4 kg Allergies Allergy/AdvReac Type Severity Reaction Status Date / Time No Known Allergies Allergy Unverified 01/02/20 15:13 Medications Home Medications Medication Instructions Recorded Confirmed Last Taken cyclobenzaprine 5 mg tablet 5 mg PO TID PRN #20 tab 12/30/19 01/02/20 Unknown prednisone 10 mg tablet See Rx Instructions PO DAILY #30 12/30/19 01/02/20 Unknown tab tramadol 37.5 mg-acetaminophen 325 See Rx Instructions PO Q6H PRN #30 12/30/19 01/02/20 Unknown mg tablet tab omeprazole 40 mg capsule,delayed 40 mg PO DAILY #30 cap 01/02/20 01/02/20 Unknown release ondansetron HCl 4 mg tablet 4 mg PO Q6H PRN #20 tab 01/02/20 01/02/20 Unknown Active Medications Generic Name Dose Route Start Last Admin Trade Name Freq PRN Reason Stop Dose Admin Sodium Chloride 1,000 mls @ 80 mls/hr 01/02/20 23:15 01/02/20 23:48 Nss 1000ml IV 02/01/20 23:14 80 mls/hr .[id number] CARLOS Administration Piperacillin Sod/Tazobactam 115 mls @ 28.75 mls/hr 01/03/20 00:00 01/03/20 04:06 Sod 3.375 gm/ Dextrose IV 01/13/20 00:00 Infused Q8H CARLOS Infusion Protocol Past Medical History Medical History (Updated 01/03/20 @ 07:16 by Delano Valverde MD) Anemia Past Family History Family History Father Hyperlipidemia Cardiac disorder Hypertension Kidney stone Glaucoma Mother Hyperlipidemia Hypothyroidism Grandmother Diabetes Stomach cancer Unknown Cardiac disorder Hypertension Kidney stone Denies family history of Ovarian cancer Prostate cancer Myocardial infarction Breast cancer Colorectal cancer Past Surgical History Surgical History History of section History of knee surgery Social History Smoking Status: Never smoker Do You Dip or Chew Tobacco: No Hx Alcohol Use: No Hx Substance Use: No substance use type: does not use Physical Exam Vital Signs Last Vital Signs Temp 37.2 C 01/02/20 23:10 Pulse 64 01/02/20 23:10 Resp 16 01/02/20 23:10 BP 101/62 01/02/20 23:10 Pulse Ox 96 01/02/20 23:10 Testing Laboratory Results 01/03/20 06:11 01/03/20 06:11 Urine Color Dark Yellow 01/02/20 16:48 Urine Appearance Clear (Clear) 01/02/20 16:48 Urine pH 7.5 (4.5-7.5) 01/02/20 16:48 Ur Specific [place] 1.024 (1.000-1.030) 01/02/20 16:48 Urine Protein Negative (Negative) 01/02/20 16:48 Urine Glucose (UA) Negative (Negative) 01/02/20 16:48 Urine Ketones Negative (Negative) 01/02/20 16:48 Urine Nitrite Negative (Negative) 01/02/20 16:48 Ur Leukocyte Esterase Negative (Negative) 01/02/20 16:48
--- NOTE | 2020-01-03 07:17 | Ultrasound Report ---
ULTRASOUND RIGHT UPPER QUADRANT ABDOMEN CLINICAL HISTORY: Right upper quadrant abdominal pain. COMPARISON STUDY: Abdominal CT dated 01/02/2020. TECHNIQUE: Real-time, grayscale, and color flow sonography of the right upper quadrant of the abdomen was performed. Images are reviewed in the transverse and longitudinal planes. FINDINGS: Liver: The liver is normal in size and echotexture. There is no intrahepatic biliary ductal dilatatio n. The main portal vein is patent. Gallbladder: The gallbladder is distended. There are numerous shadowing calcified gallstones. The gal lbladder wall is thickened and edematous measuring up to 5 mm. Trace pericholecystic fluid is noted. A sonographic [place]'s sign is reportedly absent. The common bile duct measures up to 1.[address] Pancreas: Visualized portions of the pancreatic head and body are normal in appearance. The splenic v ein is patent. Right kidney: Survey images of the right kidney demonstrate normal size and echotexture. There is no hydronephrosis. Ascites: None. IMPRESSION: 1. Cholelithiasis with evidence of acute cholecystitis. 2. There is significant dilatation of the common bile duct measuring up to 1.5 cm. ACT 112: Negative or not required by law. Electronically signed by: Wilfrido Rai M.D. 01/03/2020 7:16 AM
--- NOTE | 2020-01-03 07:57 | Gastrointestinal Consultation ---
Date of Consultation January 03, 2020 Assessment & Plan (1) No pertinent past medical history: (2) Right upper quadrant abdominal pain: Right upper quadrant abdominal pain with elevated LFTs, imaging and labs would suggest acute cholecystitis with likely biliary obstruction from likely stone given history. She is hemodynamically stable, no overt signs of obvious cholangitis, will plan on ERCP followed by cholecystectomy from general surgery this morning. Continue IV antibiotics, n.p.o., as well as antiemetics. Dr. Javed will be performing the ERCP. further recommendations to follow that procedure. History of Present Illness Reason for Consultation: Elevated LFTs with abdominal pain Attending Physician: Karoline Houston, DO History of Present Illness This is a 39-year-old female with no significant past medical history who presents to the ER last evening after having had 3 weeks of back and then deve loping right upper quadrant abdominal pain. She states that over the last several weeks she has had mid back pain, mildly to her right side, she seen by her PCP and prescribed ibuprofen as well as a muscle relaxer and then ultimately prednisone. This did not take care of the pain and the pain continued to wax and wane until worsening causing him to the emergency room last evening. She is had nausea with this as well as intermittent vomiting, she has had avoidance of food and mild increasing pain with food. Pain is in the epigastrium to the right upper quadrant around to her back. She is had no fevers or chills. No blood in her stool and/or urine. No alarm symptoms such as weight loss. In the ER she was found to have dramatically elevated liver function tests with a bilirubin rater than 6, elevated AST ALT as well as alkaline phosphatase. CT scan did show dilated intrahepatic bile ducts as well as a distended gallbladder with concerns of cholecystitis. She was admitted, started on IV fluids, given antiemetics, started on antibiotics with Zosyn. Overnight she says she feels better her pain is improved and controlled with pain medication. She states that she has had issues with anesthesia in the past with excessive amounts of nausea and vomiting post . Allergies Allergy/AdvReac Type Severity Reaction Status Date / Time No Known Allergies Allergy Unverified 01/02/20 15:13 Home Medications Home Medications Medication Instructions Recorded Confirmed Type cyclobenzaprine 5 mg tablet 5 mg PO TID PRN #20 tab 12/30/19 01/02/20 Rx prednisone 10 mg tablet See Rx Instructions PO DAILY #30 12/30/19 01/02/20 Rx tab tramadol 37.5 mg-acetaminophen 325 See Rx Instructions PO Q6H PRN #30 12/30/19 01/02/20 Rx mg tablet tab omeprazole 40 mg capsule,delayed 40 mg PO DAILY #30 cap 01/02/20 01/02/20 Rx release ondansetron HCl 4 mg tablet 4 mg PO Q6H PRN #20 tab 01/02/20 01/02/20 Rx Patient History Medical History (Updated 01/03/20 @ 07:58 by Glen Julien) Anemia Surgical History History of section History of knee surgery Family History Father Hyperlipidemia Cardiac disorder Hypertension Kidney stone Glaucoma Mother Hyperlipidemia Hypothyroidism Grandmother Diabetes Stomach cancer Unknown Cardiac disorder Hypertension Kidney stone Denies family history of Ovarian cancer Prostate cancer Myocardial infarction Breast cancer Colorectal cancer Social History Preferred Language: Urdu Communication Ability: Effective Visual Impairment: No Limitations Hearing Ability: Normal Abatement Worker Required: No Beliefs That Will Affect Care: None marital status: Current Living Situation: Spouse current occupational status: employed 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 Other Information That Helps Us Care for You: No Feels Safe at Home: Yes Safety Concerns: Feels Safe At This Time Smoking Status: Never smoker Do You Dip or Chew Tobacco: No ; Second Hand Exposure: No ; Tobacco Cessation Education Requested by Patient: No Hx Alcohol Use: No Hx Substance Use: No Childhood Exposure to Second-Hand Smoke: No Dental Care, Regularly: No Physical Activity Frequency: Does not Exercise Seatbelt Use: always Sunscreen Use: Yes Review of Systems Review of Systems: All systems reviewed & are unremarkable except as noted in HPI & below Physical Exam Physical Exam: Eyes are yellow Constitutional: WD/WN, vitals as above Cardiovascular: RRR, no murmur, no edema Gastrointestinal (Abdomen): normal bowel sounds, soft, nontender, no hepatosplenomegaly Results & Data ([facility]) Vital Signs (Past 12 Hours) Vital Signs Temp Pulse Pulse Resp BP BP Pulse Ox 06/06/20 07:27 36.7 C 66 14 107/63 93 01/02/20 23:10 37.2 C 64 16 101/62 96 01/02/20 22:07 80 20 107/55 L 98 01/02/20 21:15 73 20 108/64 98 Labs reviewed include a white count from 13 down to 6, bilirubin still over 6, AST and ALT of declined as well as alkaline phosphatase.
[2020-01-03] MEDS: PIPERACILLIN/TAZOBACTAM 3.375 GM in DEXTROSE 5% 100 ML IV SCH ×3 (09:07→23:39)
[2020-01-03] MEDS ORDERED: INDOMETHACIN 50 MG SUPP PR ONE (10:13)
[2020-01-03] MEDS ORDERED: BUPIVACAINE 0.5 % 5 MG/1 ML MPF 30ML VIAL ONE (10:13)
[2020-01-03] MEDS ORDERED: BACITRACIN OINT 15 GM TUBE ONE (10:13)
[2020-01-03] MEDS ORDERED: LIDOCAINE HCL 1% 20 ML VIAL ONE (10:13)
--- NOTE | 2020-01-03 10:41 | History & Physical Bridge Note ---
Date of Service January 03, 2020 History & Physical Bridge Note I have examined the patient, reviewed the History & Physical and in the interval since the performance of the History & Physical I have noted the following changes of clinical significance: no changes noted
[2020-01-03] MEDS ORDERED: MIDAZOLAM HCL 1 MG/ML 2ML VIAL ONE (10:50)
[2020-01-03] MEDS ORDERED: DEXAMETHASONE SOD INJ 4 MG/ML VIAL ONE (10:50)
[2020-01-03] MEDS ORDERED: LIDOCAINE HCL 2% 2 ML VIAL/AMP(20MG/ML) INFIL ONE (10:50)
[2020-01-03] MEDS ORDERED: fentaNYL citrate 100 MCG/2 ML VIAL ONE ×2 (10:50→12:33)
[2020-01-03] MEDS ORDERED: ONDANSETRON INJ 2 MG/ML 2 ML VIAL ONE (10:50)
[2020-01-03] MEDS ORDERED: PROPOFOL IV EMULSION 10 MG/ML 20 ML VIAL IV ONE (10:50)
[2020-01-03] MEDS ORDERED: GLYCOPYRROLATE 0.2 MG/ML VIAL ONE (10:50)
[2020-01-03] MEDS ORDERED: NEOSTIGMINE METHYLSULFATE 5 MG/5 ML SYR ONE (10:50)
[2020-01-03] MEDS ORDERED: ATROPINE SULFATE 0.1 MG/ML 10ML SYR IV PRN (11:04)
[2020-01-03] MEDS ORDERED: SCOPOLAMINE 1.5 MG TDSY TD ONE (11:04)
[2020-01-03] MEDS ORDERED: KETOROLAC 30 MG/ML VIAL IV PRN (11:04)
[2020-01-03] MEDS ORDERED: fentaNYL citrate 100 MCG/2 ML VIAL IV PRN (11:04)
[2020-01-03] MEDS ORDERED: ONDANSETRON INJ 2 MG/ML 2 ML VIAL IV PRN (11:04)
[2020-01-03] MEDS ORDERED: PROMETHAZINE HCL 6.25 MG in SODIUM CHLORIDE 0.9% 50 ML IV PRN (11:04)
--- NOTE | 2020-01-03 11:06 | History & Physical Bridge Note ---
Date of Service January 03, 2020 History & Physical Bridge Note I have examined the patient, reviewed the History & Physical and in the interval since the performance of the History & Physical I have noted the following changes of clinical significance: no changes noted Supervising Physician Co-Signing Physician Notes Patient seen and examined, chart reviewed, case discussed with Dr. Perez and I agree with the assessment and plan as documented above. Briefly, patient is a 39 yo female presenting with acute cholecystitis, concern for cholangitis. She had been having back pain x 3 weeks which was being treated with anti-inflammatories. Today with abdominal/epigastric discomfort as well On exam she is afebrile, HD stable NAD HEENT - NC/AT, PERRL, +scleral icterus and sublingual jaundice present, neck supple, no JVD Heart - +S1/S2, regular, no m/r/g Lungs -CTA Abd - +BS, soft, tender in RUQ with voluntary guarding, tenderness in epigastric area, no rebound or peritonitis Ext - warm, well perfused, no clubbing/cyanosis/edema Labs and images reviewed. Assessment/Plan: 39yo C female with acute cholecystitis, concern for CBD stone/developing cholangitis -Admit to medical floor -NPO for procedures/surgery in AM -Zosyn 3.375gm IV q 8 -GI consultation appreciated - ERCP for tomorrow at 09:00 -General Surgery consultation appreciated - tentatively planned for cholecystectomy after ERCP -Remainder of plan as above
--- NOTE | 2020-01-03 12:11 | Operative Report ---
Post Operative Report Pre & Post Diagnosis Operation Date: 01/02/20 09:00 <No data on this case meets the specified criteria> Operation Date: 01/03/20 09:00 <No data on this case meets the specified criteria> Operation Date: 01/03/20 09:00 Pre-Op Diagnosis: Cholecystitis, common bile duct stones Post-Op Diagnosis: Cholecystitis, common bile duct stones I identified the patient and participated in the time-out.: Yes Procedure Operation Date: 01/02/20 09:00 <No data on this case meets the specified criteria> Operation Date: 01/03/20 <No data on this case meets the specified criteria> Operation Date: 01/03/20 09:00 Actual Procedures p Endoscopic Retrograde Cholangiopancreato(Not Applicable) - Laine Javed MD s Laparoscopic Cholecystectomy(Not Applicable) - Rogerio Wadsworth MD Surgeon Laine Javed MD Program Director Substance Abuse None Estimated Blood Loss 0 Findings See Below (CBD stone removed, Cholangitis noted, CBD stent placed) Specimens None Description of Procedure ERCP I attest to the content of the Intraoperative Record and any orders documented therein. Any exceptions are noted below.
--- NOTE | 2020-01-03 12:41 | GI REPORT ---
Patient Name: Rupa Neumann Procedure Date: 01/03/2020 10:54 AM Date of : 1980 Admit Type: Inpatient Age: 39 Gender: Female Attending MD: Laine Javed MD Procedure: ERCP Providers: Laine Javed MD Referring MD: Benny Webb M.d., Jairo Wiggins Md Indications: Biliary dilation on Computed Tomogram Scan, Evaluation and possible treatment of bile duct stone(s), Elevated liver enzymes Medicines: General Anesthesia Complications: No immediate complications. Estimated Blood Loss: Estimated blood loss: none. Procedure: Pre-Anesthesia Assessment: - Prior to the procedure, a History and Physical was performed, and patient medications, allergies and sensitivities were reviewed. The patient's tolerance of previous anesthesia was reviewed. - The risks and benefits of the procedure and the sedation options and risks were discussed with the patient. All questions were answered and informed consent was obtained. - Patient identification and proposed procedure were verified prior to the procedure by the physician and the nurse. The procedure was verified in the procedure room. - Pre-procedure physical examination revealed no contraindications to sedation. After obtaining informed consent, the scope was passed under direct vision. Throughout the procedure, the patient's blood pressure, pulse, and oxygen saturations were monitored continuously. The Scope was introduced through the mouth, and advanced to the duodenum and used to inject contrast into the bile duct. The ERCP was accomplished without difficulty. The patient tolerated the procedure well. Findings: The rn paralegal film was normal. The esophagus was successfully intubated under direct vision. The scope was advanced to a normal major papilla in the descending duodenum without detailed examination of the pharynx, larynx and associated structures, and upper GI tract. The upper GI tract was grossly normal. The major papilla was floppy and protruding which made it difficult to achieve biliary access and cannulate with sphincterotome hence a biliary pre-cut sphincterotomy was made with a monofilament needle knife using a freehand technique using ERBE electrocautery. There was no post-sphincterotomy bleeding. A 0.035 inch angled standard wire was passed into the biliary tree. The Fusion OMNI sphincterotome was passed over the guidewire and the bile duct was then deeply cannulated. Contrast was injected. I personally interpreted the bile duct images. Ductal flow of contrast was adequate. Image quality was adequate. Contrast extended to the main bile duct. The main bile duct was mildly dilated. The largest diameter was 8 mm. The biliary orifice was stenotic. This appeared benign. The biliary sphincterotomy was extended with a monofilament traction (standard) sphincterotome using ERBE electrocautery. There was no post-sphincterotomy bleeding. The biliary tree was swept with a 12 mm balloon starting at the bifurcation. Pus was swept from the duct. One stone was removed. No stones remained. One 10 Fr by 7 cm plastic biliary stent with a single external flap and a single internal flap was placed into the common bile duct. Bile flowed through the stent. The stent was in good position. Indomethacin 100 mg was given via suppository to decrease the risk of post-ERCP pancreatitis (PEP). PD was not cannulated nor injected with contrast. Impression: - Ascending cholangitis was found. - Choledocholithiasis was found. Complete removal was accomplished by biliary sphincterotomy and balloon extraction. - One plastic biliary stent was placed into the common bile duct. Recommendation: - Return patient to [facility] for ongoing care. - Avoid aspirin and nonsteroidal anti-inflammatory medicines for 5 days. - Proceed with Lap kathi. - Complete a 10 days course of ABx. - Repeat ERCP in 4 - 6 weeks to remove stent. Laine Javed MD 01/03/2020 12:40:36 PM This report has been signed electronically. Note Initiated On: 01/03/2020 10:54 AM Number of Addenda: 0 I attest to the content of the Intraoperative Record and orders documented therein, exceptions below {[id number]}
--- NOTE | 2020-01-03 12:56 | Fluoroscopy Report ---
INTRAOPERATIVE RADIOGRAPH CLINICAL HISTORY: ERCP. Fluoroscopy time: 49 seconds. FINDINGS: A single spot fluoroscopic image of the right upper quadrant is presented. A common bile du ct stent is in place. IMPRESSION: Single intraoperative image from a common bile duct stent placement procedure as above. Electronically signed by: Wilfrido Rai M.D. 01/03/2020 12:55 PM
[2020-01-03] MEDS ORDERED: KETOROLAC 30 MG/ML VIAL ONE (14:18)
[2020-01-03] MEDS ORDERED: ROCURONIUM BROMIDE 10 MG/ML 5 ML VIAL ONE (14:18)
--- NOTE | 2020-01-03 14:22 | Post Operative Brief Note ---
Immediate Post Op Note v1 Date of Surgery January 03, 2020 Pre & Post Diagnosis Operation Date: 01/02/20 09:00 <No data on this case meets the specified criteria> Operation Date: 01/03/20 09:00 <No data on this case meets the specified criteria> Operation Date: 01/03/20 09:00 Pre-Op Diagnosis: acute Cholecystitis, common bile duct stones Post-Op Diagnosis: acute Cholecystitis, common bile duct stones I identified the patient and participated in the time-out.: Yes Procedure Operation Date: 01/02/20 09:00 <No data on this case meets the specified criteria> Operation Date: 01/03/20 09:00 <No data on this case meets the specified criteria> Operation Date: 01/03/20 09:00 Actual Procedures p Endoscopic Retrograde Cholangiopancreato(Not Applicable) - Laine Javed MD s Laparoscopic subtotal Cholecystectomy(Not Applicable) - Rogerio Wadsworth MD Surgeon Rogerio Wadsworth MD Search Optimization Analyst surgical territory manager Estimated Blood Loss 30 Findings Consistent with Post-Op Diagnosis significant inflammation on gallbladder wall, Fluids 1500ml Specimens gallbladder Drains Jamie-Taylor Drain (10 round) Anesthesia Type General Complications none Disposition Accompanied Patient To Recovery: Yes Disposition: Recovery Room Overlapping Procedure I was immediately available: during the entire case.
--- NOTE | 2020-01-03 15:15 | Anesthesiology Progress Note ---
Date of Service January 03, 2020 Anesthesia Post Procedure Vital Signs Vital Signs: Temp Pulse Pulse Pulse Resp BP BP 01/03/20 14:55 36.3 C L 61 15 125/61 01/03/20 14:45 60 16 119/61 01/03/20 14:35 36 C L 80 16 117/59 L 01/03/20 07:27 36.7 C 66 14 107/63 01/02/20 23:10 37.2 C 64 16 101/62 01/02/20 22:07 80 20 107/55 L 01/02/20 21:15 73 20 108/64 01/02/20 19:23 80 16 106/69 01/02/20 18:02 83 20 110/71 01/02/20 16:49 77 16 114/58 L Pulse Ox 01/03/20 14:55 97 01/03/20 14:45 100 01/03/20 14:35 100 01/03/20 07:27 93 01/02/20 23:10 96 01/02/20 22:07 98 01/02/20 21:15 98 01/02/20 19:23 99 01/02/20 18:02 98 01/02/20 16:49 99 Pain Intensity Back: Pain Intensity: 6 Upper Abdomen: Pain Intensity: 2 Transfer of Care Handoff Completed per policy Notes Mental Status: alert / awake / arousable Patient Amnestic to Procedure: Yes Nausea / Vomiting: adequately controlled Pain: adequately controlled Airway Patency, RR, SpO2: stable & adequate BP & HR: stable & adequate Hydration State: stable & adequate Anesthetic Complications: no major complications apparent
[2020-01-03] MEDS ORDERED: CONRAY 60% 50 ML VIAL ONE (15:34)
[2020-01-03] MEDS ORDERED: CYCLOBENZAPRINE HCL 5 MG TAB PO PRN (15:37)
[2020-01-03] MEDS: SODIUM CHLORIDE 0.9% 1000ML 1,000 ML IV SCH ×2 (15:44→23:41)
[2020-01-03] MEDS ORDERED: ONDANSETRON 4 MG OD TAB PO PRN (15:45)
[2020-01-03] MEDS ORDERED: METOCLOPRAMIDE HCL INJ 5 MG/ML 2 ML VIAL IV ONE ×2 (15:46→21:35)
[2020-01-03] MEDS ORDERED: COUGH DROP (SUGAR FREE) LOZ 24 LOZ/1 BOX BUCCAL PRN (19:52)
[2020-01-03] MEDS ORDERED: predniSONE 10 MG TABLET PO SCH (20:30)
[2020-01-03] MEDS: TRAMADOL/ACETAMINOPHEN 37.5/325MG TAB PO PRN (21:12)
--- NOTE | 2020-01-03 22:09 | Operative Report (OR) ---
DATE OF OPERATION: 01/03/2020 PREOPERATIVE DIAGNOSIS: Acute cholecystitis, post ERCP. POSTOPERATIVE DIAGNOSIS: Acute cholecystitis, cholelithiasis, post ERCP. PROCEDURE: Laparoscopic subtotal cholecystectomy. SURGEON: Rogerio Wadsworth MD ANESTHESIA: General. ESTIMATED BLOOD LOSS: About 30 mL. FINDINGS: Significant inflammation on the gallbladder wall. It was difficult to find the cystic duct. At this moment, we did subtotal cholecystectomy with ELEANOR drainage. COMPLICATIONS: None. INDICATIONS FOR THE PROCEDURE: This is a 39-year-old female who was admitted to hospital for acute cholecystitis with common bile duct stone and cholangitis and the patient required to do the ERCP and laparoscopic cholecystectomy, possible open, possible cholangiogram. I did talk to the patient about laparoscopic cholecystectomy, benefits, risks, alternate procedures. I indicated the risks may include but not limited such as bleeding, infection, injury to common bile duct, bile leak, sepsis. The patient understands. She signed informed consent and I answered all questions. DETAILS OF PROCEDURE: We brought in the patient to the OR and put the patient in the supine position. The patient received SCDs on bilateral legs to prevent DVT. Also, patient received 3.375 grams Zosyn IV for prophylactic antibiotic. The patient received general anesthesia without difficulty. The GI doctor did ERCP first, then I came to the OR and started to do the laparoscopic cholecystectomy. The abdomen was prepped and draped in routine sterile fashion. After time-out, I injected local anesthesia by using 1% lidocaine mixed with 0.5% Marcaine just above the umbilicus. Then I made a small incision just above umbilicus, opened fascia and opened peritoneum under direct vision, put a Anya trocar in, connected to CO2 to create pneumoperitoneum, flow rate is 6 liter per minute, pressure not more than 14 mmHg. Once we got a nice pneumoperitoneum, we put a camera in and looked around the abdomen. It showed normal finding on the liver. However, the gallbladder showed significant inflammation on the gallbladder wall, edema and inflammation, confirmed diagnosis of acute cholecystitis. Then we put another two 5 mm trocars on the right upper quadrant and one 12 trocar on the epigastric area. We used the grasper to hold the gallbladder. Because the gallbladder had significant distention, we had to use a large needle to decompress the gallbladder first and used the grasper to hold the gallbladder, put direction to the diaphragm. Another grasper to hold the pouch of gallbladder, put latter to try to expunge triangle of Calot. However, based on the significant inflammation around the triangle of Calot, it was difficult to identify the cystic duct. At this moment, we decided to do the top down procedure technique to take down gallbladder from top down technique. Once we take near 95% the gallbladder near the cystic duct and we opened the gallbladder and suctioned all the bile fluid out, then we found the patient had at least 6 stones we removed through the gallbladder recheck and made sure no more stone left behind. At this moment, we used the harmonic to take down the gallbladder, about 95%, and leave one stump near the gallbladder cyst. I used Endoloop and closed the gallbladder near the cyst x2. Rechecked, no bile leak, and then we removed the gallbladder through the catch bag. Based on significant inflammation in the gallbladder and liver bed, we decided to put one 10 mm ELEANOR drainage around the liver bed and then we reinserted Anya trocar in, connected to CO2 to create pneumoperitoneum. We again looked around the abdomen, no bile leak, no active bleeding from the liver bed and once we put a ELEANOR drainage, we used 0 nylon to close the ELEANOR drainage, fixed the ELEANOR drainage on the skin, and then we removed all trocars under direct vision. No active bleeding from the trocar sites. Pneumoperitoneum was released. We closed the umbilical incision, fascial layer by using 0 Vicryl [id number] x2, closed subcutaneous layer by using 2-0 Vicryl interruptedly, closed skin by using 4-0 Vicryl continuous running, closed the epigastric area incision, fascial layer by using 0 Vicryl [id number] x2, subcutaneous layer by using 2-0 Vicryl interruptedly, closed skin by using 4-0 Vicryl interruptedly, closed another two 5 mm trocar site skin only by using 4-0 Vicryl. Then we put the dressing on. The patient tolerated the procedure well. All instrument, needle and sponge count were correct x2 at the end of the case. The specimen sent to pathology. The patient transferred to recovery room in stable condition. I attest to the content of the Intraoperative Record and any orders documented therein. Any exceptions are noted below. HERACLIO
--- NOTE | 2020-01-03 22:35 | Hospitalist Progress Note ---
Date of Service January 03, 2020 Assessment & Plan (1) Cholecystitis: -CT Abd/Pelvis: Mild gallbladder distention with mild gallbladder wall thickening and pericholecystic fluid. There is associated mild dilatation of the common hepatic duct and common bile duct -GB U/S ([facility]): Dependent gallstones along with sludge identified. There is GB wall thickening. Trace pericholecystic fluid is seen -S/P ERCP and subtotal cholecystectomy. -cont IV Zosyn for antibiotic coverage -pain management with IV Morphine 2mg q4h prn -IV Zofran prn for any nausea -appreciate Sx consult -appreciate GI Consult Hypokalemia -replaced Updated Admission and Anticipated Discharge Date Admission Date: January 02, 2020 Subjective 39 yo female reports feeling tired after surgery. She has moderate pain at the surgical site. Patient was nauseaous earlier but this is no longer the case. Review of Systems Review of Systems: All systems reviewed & are unremarkable except as noted in HPI & below Physical Exam Physical Exam: Constitutional: WD/WN, vitals as above Eyes: PERRL, conjunctivae normal, anicteric sclerae ENMT: external ear and nose normal, oropharynx normal Respiratory: normal respiratory effort, lungs clear to auscultation Cardiovascular: RRR, no murmur, no edema Gastrointestinal (Abdomen): Inspection/Auscultation: normal bowel sounds; abdomen not distended Percussion/Palpation: ELEANOR draining small amount of blood. Skin: no rashes, warm and dry Psychiatric: A+Ox3, euthymic affect Results & Data Results & Data ([facility]) Vital Signs (Past 12 Hours) Vital Signs Temp Pulse Pulse Resp BP Pulse Ox 01/03/20 18:25 36.8 C 71 16 107/68 98 01/03/20 17:21 36.8 C 67 16 103/66 97 01/03/20 16:25 36.6 C 01/03/20 16:24 64 16 111/71 98 01/03/20 15:50 36.8 C 64 16 131/81 100 01/03/20 15:20 36.7 C 88 18 130/72 99 01/03/20 14:55 36.3 C L 61 15 125/61 97 01/03/20 14:45 60 16 119/61 100 01/03/20 14:35 36 C L 80 16 117/59 L 100 PG Care Time/CCT Total # of Minutes Spent Total Time Spent with Patient: Total time spent is greater than 50% in coordination of care (as documented) at patient's floor/unit and/or counseling patient: Coding Level of Care Code 97364 Subseq Hosp Care Lvl 3 Diagnoses Cholecystitis K81.9 Time Spent (min) 35
[2020-01-04] MEDS: SODIUM CHLORIDE 0.9% 1000ML 1,000 ML IV SCH ×2 (03:30→16:20)
[2020-01-04] MEDS: TRAMADOL/ACETAMINOPHEN 37.5/325MG TAB PO PRN (06:08)
[2020-01-04 06:17] LABS: INR 1.2 (0.9-1.1); Prothrombin Time 12.1 Seconds (9.0-12.0)
[2020-01-04 06:26] LABS: Creatinine Clr Calc Pharmacy 108.6 ml/min; Est GFR (African American) 136.9; Est GFR (Non-African American) 118.2
[2020-01-04] MEDS: PANTOprazole 40 MG TAB PO SCH (08:36)
[2020-01-04] MEDS: PIPERACILLIN/TAZOBACTAM 3.375 GM in DEXTROSE 5% 100 ML IV SCH ×3 (08:36→23:19)
[2020-01-04] MEDS ORDERED: predniSONE 10 MG TABLET PO SCH (09:00)
[2020-01-04 10:46] LABS: Albumin Level 2.9 gm/dl (3.4-5.0); BUN Creatinine Ratio 15.6 (10-20); Calcium 8.2 mg/dl (8.5-10.1); Creatinine Clr Calc Pharmacy 101.2 ml/min; Est GFR (African American) 133.8; Est GFR (Non-African American) 115.5; Potassium 4.1 mmol/L (3.5-5.1)
[2020-01-04 10:50] LABS: Albumin Globulin Ratio 0.9 (0.9-2); Bilirubin,Total 1.9 mg/dl (0.2-1); Globulin 3.3 gm/dl (2.5-4.0); Total Protein 6.2 gm/dl (6.4-8.2)
--- NOTE | 2020-01-04 11:33 | Surgery Progress Note ---
Date of Service S/P ERCP, laparoscopic subtotal cholecystectomy POD 1 pt id doing fine, some RLQ pain, no nausea, no vomiting, no fever, ELEANOR 20 ml, clear January 04, 2020 Assessment & Plan (1) Cholecystitis: pt is a 39 year-old female who presents to ER with back and RUQ pain, IMP: acute cholecystitis, cholangitis, choledocholithiasis Plan, I recommend to do laparoscopic cholecystectomy, possible open or cholangiogram following after ERCP,D/W benefits, risks and alternatives of the surgery, the risks - infection,b bleeding, injury CBD, biliary leak, pt understood, she agrees with the surgery, I answered all questions, I agree with hospitalist management, U/S study for gallbladder to R/O cholecystitis and gallstone, will F/U Thanks, 01/04/2020 11:30am POD 1 doing, I update about OR finding and procedure pt had , she understood, I answered all questions, keep pt overnight today, control pain, possible Discharge home tomorrow with ELEANOR drainage, F/U me in 1 week [phone] I will pull ELEANOR at clinic office (2) Choledocholithiasis: (3) Cholangitis: Supervising Physician Co-Signing Physician Notes Patient seen and examined, chart reviewed, case discussed with Dr. Perez and I agree with the assessment and plan as documented above. Briefly, patient is a 39 yo female presenting with acute cholecystitis, concern for cholangitis. She had been having back pain x 3 weeks which was being treated with anti- inflammatories. Today with abdominal/epigastric discomfort as well On exam she is afebrile, HD stable NAD HEENT - NC/AT, PERRL, +scleral icterus and sublingual jaundice present, neck supple, no JVD Heart - +S1/S2, regular, no m/r/g Lungs -CTA Abd - +BS, soft, tender in RUQ with voluntary guarding, tenderness in epigastric area, no rebound or peritonitis Ext - warm, well perfused, no clubbing/cyanosis/edema Labs and images reviewed. Assessment/Plan: 39yo C female with acute cholecystitis, concern for CBD stone/developing cholangitis -Admit to medical floor -NPO for procedures/surgery in AM -Zosyn 3.375gm IV q 8 -GI consultation appreciated - ERCP for tomorrow at 09:00 -General Surgery consultation appreciated - tentatively planned for cholecystectomy after ERCP -Remainder of plan as above Review of Systems Constitutional: as per Subjective / HPI Eyes: Glaucoma Ear, Nose, Mouth, Throat: as per Subjective / HPI Respiratory: as per Subjective / HPI Cardiovascular: as per Subjective / HPI Gastrointestinal: as per Subjective / HPI Genitourinary: ureteral calculus Musculoskeletal: as per Subjective / HPI Integumentary: as per Subjective / HPI Neurologic: as per Subjective / HPI Psychiatric: as per Subjective / HPI Endocrine: as per Subjective / HPI Hematologic / Lymphatic: as per Subjective / HPI Allergy / Immunological: as per Subjective / HPI Physical Exam Constitutional: WD/WN, vitals as above well developed and well nourished Eyes: PERRL, conjunctivae normal, anicteric sclerae ENMT: external ear and nose normal, oropharynx normal Neck: trachea midline, no thyromegaly Respiratory: normal respiratory effort, lungs clear to auscultation normal respiratory effort Cardiovascular: RRR, no murmur, no edema Rate/Rhythm: regular rate and regular rhythm Heart Sounds: normal S1 and normal S2 Gastrointestinal (Abdomen): normal bowel sounds, soft, nontender, no hepatosplenomegaly Percussion/Palpation: + abdomen tender and abdomen soft mild tenderness at RLQ, no rebound pain, Musculoskeletal: no cyanosis or clubbing, extremities motor strength 5/5 Skin: no rashes, warm and dry Neurologic: patellar DTR's 2+ bilat, sensation intact Psychiatric: Orientation: alert and oriented x 3 Results & Data Vital Signs (Past 12 Hours) Vital Signs Temp Pulse Pulse Resp BP Pulse Ox 01/04/20 07:19 36.8 C 55 L 16 108/71 96 01/04/20 03:06 36.9 C 55 L 16 94/55 L 97 01/03/20 23:46 36.7 C 62 16 87/44 L 94 Laboratory Results Abnormal lab results 01/04/20 01/04/20 01/04/20 Range/Units 05:38 05:38 05:49 PT 12.1 H (9.0-12.0) Seconds INR 1.2 H (0.9-1.1) Chloride 108 H (98-107) mmol/L Creatinine 0.55 L 0.59 L (0.6-1.2) mg/dl Glucose 129 H (70-99) mg/dl Calcium 8.2 L (8.5-10.1) mg/dl Total Bilirubin 1.9 H D (0.2-1) mg/dl AST 95 H (15-37) U/L ALT 551 H (12-78) U/L Alkaline Phosphatase 240 H (45-117) U/L Total Protein 6.2 L (6.4-8.2) gm/dl Albumin 2.9 L (3.4-5.0) gm/dl
--- NOTE | 2020-01-04 11:58 | Gastroenterology Progress Note ---
Date of Service January 04, 2020 Assessment & Plan (1) Choledocholithiasis: Patient status post ERCP x1 day, doing well. Advance diet per general surgery Will need follow-up ERCP with stent removal to be arranged by Dr. Tran Gonzalez Call with questions. Admission and Anticipated Discharge Date Admission Date: January 02, 2020 Subjective Patient up ambulating in the room, has minimal pain that was treated with tramadol only. Physical Exam Constitutional: WD/WN, vitals as above Cardiovascular: RRR, no murmur, no edema Gastrointestinal (Abdomen): normal bowel sounds, soft, nontender, no hepatosplenomegaly Results & Data ([place]) Vital Signs (Past 12 Hours) Vital Signs Temp Pulse Pulse Resp BP Pulse Ox 01/04/20 07:19 36.8 C 55 L 16 108/71 96 01/04/20 03:06 36.9 C 55 L 16 94/55 L 97
--- NOTE | 2020-01-04 23:25 | Hospitalist Progress Note ---
Date of Service January 04, 2020 Assessment & Plan (1) Cholecystitis: -CT Abd/Pelvis: Mild gallbladder distention with mild gallbladder wall thickening and pericholecystic fluid. There is associated mild dilatation of the common hepatic duct and common bile duct -GB U/S ([facility]): Dependent gallstones along with sludge identified. There is GB wall thickening. Trace pericholecystic fluid is seen -S/P ERCP and subtotal cholecystectomy. -She is improving clinically. Labs has improved. bilirrubin almost back to normal. -cont IV Zosyn for antibiotic coverage -pain management with IV Morphine 2mg q4h prn -IV Zofran prn for any nausea -appreciate Sx consult -appreciate GI Consult Hypokalemia -replaced dispo: discharge likely on 01/04 if surgery is agreeable. Admission and Anticipated Discharge Date Admission Date: January 02, 2020 Subjective Patient reports feeling better. She has less nausea, no longer vomiting. Her pain is better controlled as well. She has been ambulating to the bathroom. Review of Systems Review of Systems: All systems reviewed & are unremarkable except as noted in HPI & below Physical Exam Physical Exam: Constitutional: WD/WN, vitals as above Eyes: PERRL, conjunctivae normal, anicteric sclerae ENMT: external ear and nose normal, oropharynx normal Respiratory: normal respiratory effort, lungs clear to auscultation Cardiovascular: RRR, no murmur, no edema Gastrointestinal (Abdomen): Inspection/Auscultation: normal bowel sounds; abdomen not distended Percussion/Palpation: ELEANOR draining small amount of blood. Skin: no rashes, warm and dry Psychiatric: A+Ox3, euthymic affect Results & Data Results & Data ([facility]) Vital Signs (Past 12 Hours) Vital Signs Temp Pulse Pulse Resp BP Pulse Ox 01/04/20 23:23 36.8 C 70 16 86/43 L 98 01/04/20 15:16 36.9 C 57 L 18 128/66 96 PG Care Time/CCT Total # of Minutes Spent Total Time Spent with Patient: Total time spent is greater than 50% in coordination of care (as documented) at patient's floor/unit and/or counseling patient: Coding Level of Care Code 57633 Subseq Hosp Care Lvl 2 Diagnoses Cholecystitis K81.9
[2020-01-05] MEDS: TRAMADOL/ACETAMINOPHEN 37.5/325MG TAB PO PRN (05:02)
[2020-01-05 07:01] LABS: Creatinine Clr Calc Pharmacy 86.6 ml/min; Est GFR (African American) 127.1; Est GFR (Non-African American) 109.7
[2020-01-05 07:42] LABS: Basophils # (auto) 0.01 K/uL (0-0.2); Basophils % (auto) 0.1 %; Eosinophils # (auto) 0.18 K/uL (0-0.5); Eosinophils % (auto) 2.1 %; Hematocrit (blood only) 32.1 % (37-47); Hemoglobin 10.2 g/dL (12.0-16.0); Immature Granulocytes # (auto) 0.04 K/uL (0.00-0.02); Immature Granulocytes % (auto) 0.5 %; Lymphocytes # (auto) 1.47 K/uL (1.2-3.4); Lymphocytes % (auto) 17.3 %; Mean Corpuscular Hemoglobin 27.9 pg (25-34); Mean Corpuscular Volume 87.9 fL (80-100); Mean Platelet Volume 9.6 fL (7.4-10.4); Monocytes # (auto) 0.57 K/uL (0.11-0.59); Monocytes % (auto) 6.7 %; Neutrophils # (auto) 6.25 K/uL (1.4-6.5); Neutrophils % (auto) 73.3 %; Platelet Count 309 K/uL (130-400); RDW Coefficient of Variation 14.7 % (11.5-14.5); RDW Standard Deviation 47.2 fL (36.4-46.3); Red Blood Count 3.65 M/uL (4.2-5.4); White Blood Count 8.52 K/uL (4.8-10.8)
[2020-01-05 07:51] LABS: Mean Corpuscular Hgb Conc 31.8 g/dL (32-36)
[2020-01-05 07:52] LABS: Albumin Level 2.6 gm/dl (3.4-5.0); BUN Creatinine Ratio 18.7 (10-20); Creatinine Clr Calc Pharmacy 86.6 ml/min; Est GFR (African American) 127.1; Est GFR (Non-African American) 109.7; Potassium 3.6 mmol/L (3.5-5.1)
[2020-01-05 07:57] LABS: Albumin Globulin Ratio 0.8 (0.9-2); Bilirubin,Total 1.1 mg/dl (0.2-1); Globulin 3.1 gm/dl (2.5-4.0); Total Protein 5.7 gm/dl (6.4-8.2)
[2020-01-05] MEDS: PIPERACILLIN/TAZOBACTAM 3.375 GM in DEXTROSE 5% 100 ML IV SCH (07:57)
[2020-01-05] MEDS: PANTOprazole 40 MG TAB PO SCH (07:57)
--- NOTE | 2020-01-05 08:43 | Gastroenterology Progress Note ---
Date of Service January 05, 2020 Assessment & Plan (1) Cholangitis: (2) Choledocholithiasis: (3) Cholecystitis: Pt is a 39 y/o female w R sided abd pain, elevated LFTs, found to have choledocholithiasis, cholecystitis and cholangitis s/p ERCP w choledocholithiasis removal, biliary sphincterectomy and biliary stent placement followed by lap cholecystectomy on 01/02. LFTs trending down and abd pain is improved. This AM c/o dysuria - Trend LFTs - Obtain UA, culture if indicated - Regular diet - Avoid NSAIDs or ASA x 5 days after biliary sphincterectomy - Complete 10 days course of antibx for cholangitis - No contraindication for DC from GI standpoint. We will arrange for f/u in 4-6 week's time for repeat ERCP to remove biliary stent - F/U Surgery s/p cholecystectomy Admission and Anticipated Discharge Date Admission Date: January 02, 2020 Supervising Physician Co-Signing Physician Notes I have seen and examined the patient with DARYL Arteaga whose note reflects our findings and plan. s/p ERCP. Getting kathi. Please call with questions. Subjective Pt had some more R sided abd pain early this morning but better now. Passing little flatus. Tolerating solid meals wo n/v. She is c/o burning pain upon urination. Noted LFTs are trending down Review of Systems Review of Systems: All systems reviewed & are unremarkable except as noted in HPI & below Physical Exam Constitutional: WD/WN, vitals as above well groomed, cooperative and comfortable Eyes: PERRL, conjunctivae normal, anicteric sclerae ENMT: external ear and nose normal, oropharynx normal Respiratory: normal respiratory effort, lungs clear to auscultation Cardiovascular: RRR, no murmur, no edema Gastrointestinal (Abdomen): ELEANOR drain on R abd side w scant amt of bloody discharge. Dressing over surgical area CDI. + normal bowel sounds, soft, mildly tender on palpation Skin: no rashes, warm and dry no jaundice Neurologic: Motor/Sensory: no asterixis Psychiatric: A+Ox3, euthymic affect Lymphatic: no lymphedema Results & Data ([facility]) Vital Signs (Past 12 Hours) Vital Signs Temp Pulse Resp BP Pulse Ox 01/05/20 07:45 36.7 C 67 16 104/64 95 01/04/20 23:23 36.8 C 70 16 86/43 L 98
--- NOTE | 2020-01-05 10:20 | Discharge Summary ---
Date of Service January 05, 2020 Admission HPI Per Admitting Provider 39 yo F with no significant PMH presents to [facility] with concerns of abd pain. Initially, pain started as mid-upper back pain about 3 wks ago. This was initially managed with ibuprofen for ~1wk after which pain worsened. Pt got script for tramadol which also managed the pain for about 1 wk after which pain was not managed. Pt's PCP then prescribed muscle relaxer and prednisone 10mg, which did not really help. Pain radiated into epigastric about 2-3 days ago. Today pain was not bearable so pt presented into ED. Pain described as constant and sharp. 9/10 severity at worst. No alleviating or exacerbating factors. No previous such occurrence like this before. Associated N/V with 2-3 episodes this AM and decreased appetite. Pt otherwise denies any fever, chills, diarrhea, hematochezia/melena, ingestion of suspicious foods, CP, SOB, palpitations, MONTOYA, urinary sxs, sick contacts or recent travel. Pt with no other acute concerns or complaints. Abd/Pelvis CT: Mild gallbladder distention with mild gallbladder wall thickening and pericholecystic fluid. There is associated mild dilatation of the common hepatic duct and common bile duct. No evidence of bowel obstruction. No evidence of free air. Nonobstructing left renal calculus. Normal appendix. No evidence of acute diverticulitis. GB U/S ([facility]): Dependent gallstones along with sludge identified. There is GB wall thickening. Trace pericholecystic fluid is seen Pertinent Labs: WBC 13.2, K 3.2, T bili 6.5, AST 748, ALT 1274, Alk Phos 338, Lipase 826 ER Course: IV Morphine, Zosyn, Promethazine, NSS Surgical Hx: Abd- 2 C-sections, last in 2018 Social- Denies tobacco, alcohol, illicit drug use Principal Diagnosis Acute cholecystitis with cholelithiasis and choledocholithiasis Discharge Exam Constitutional WD/WN, vitals as above Eyes PERRL, conjunctivae normal, anicteric sclerae ENMT external ear and nose normal, oropharynx normal Neck trachea midline, no thyromegaly Respiratory normal respiratory effort, lungs clear to auscultation Cardiovascular RRR, no murmur, no edema Gastrointestinal (Abdomen) Inspection/Auscultation: normal bowel sounds, + abdominal surgical incision (C/D/I) and + abdominal surgical drain present (ELEANOR in RUQ) Percussion/Palpation: + abdomen tender (minimal in RUQ) and abdomen soft; no gu arding and abdomen not rigid Musculoskeletal no cyanosis or clubbing, extremities motor strength 5/5 Skin no rashes, warm and dry Neurologic patellar DTR's 2+ bilat, sensation intact and PERRL, EOMI, accommodation nl, no face palsy, no dysarthria Psychiatric A+Ox3, euthymic affect Lymphatic no cervical or axillary lymphadenopathy Discharge Data Allergies Allergy/AdvReac Type Severity Reaction Status Date / Time No Known Allergies Allergy Unverified 01/02/20 15:13 Consultations 01/02/20 18:16 ED Decision to Admit Stat 01/02/20 23:15 Consult Gastroenterology Routine Consult General Surgery Routine Procedures Performed Operation Date: 01/02/20 09:00 <No data on this case meets the specified criteria> Operation Date: 01/03/20 09:00 <No data on this case meets the specified criteria> Operation Date: 01/03/20 09:00 Actual Procedures p Endoscopic Retrograde Cholangiopancreato(Not Applicable) - Laine Javed MD s Laparoscopic Subtotal Cholecystectomy(Not Applicable) - Rogerio Mclean MD Ordered Studies 01/02/20 15:15 CT abd pelvis IV con only Stat 01/02/20 21:39 US abdomen limited Urgent 01/03/20 07:30 [place] ERCP biliary ductal Routine Hospital Course (1) Cholecystitis: -CT Abd/Pelvis: Mild gallbladder distention with mild gallbladder wall thickening and pericholecystic fluid. There is associated mild dilatation of the common hepatic duct and common bile duct -GB U/S: Dependent gallstones along with sludge identified. There is GB wall thickening. Trace pericholecystic fluid is seen s/p cholecystectomy with Dr. Mclean, tolerated well ELEANOR still in place, he will remove in the office next week on follow up pain control patient eating and drinking well, + flatus, no BM yet treated with Zosyn IV while admitted, will d/c home on Augmentin for 7 more days no fever, WBC normal, LFT down (2) Choledocholithiasis: treated with ERCP and stone removal biliary stent placed LFT all going down will need to follow up with [facility] in 4-6 weeks for repeat ERCP and stent removal use Augmentin for 7 more days to complete treatment for cholangitis (3) Cholangitis: no fever, WBC normal, minimal pain, no jaundice treated with Zosyn, change to Augmentin on d/c for 7 more days (4) Dysuria: c/o dysuria on day of discharge UA showed only 1-5WBC, no culture done will be on Augmentin for GI coverage follow up with PCP if she continues to have issues Total Time Total Time Spent Total Time Spent (In Minutes): 33 minutes Total Time Includes: Examination of the Patient, Discharge Planning, Medication Reconciliation and Communication With Other Providers ([facility] Discharge Plan Discharge Items Patient Disposition: Home - Self-Care Reason For Visit: CHOLECYSTITIS Discharge Diagnosis: Cholecystitis, gall stones Choledocholithiasis (stones in common bile duct) Condition on Discharge: Good Goals: complete course of antibiotics follow up with general surgery in a week for ELEANOR drain removal follow up with gastroenterology in 4-6 weeks for repeat ERCP and stent removal Activity: Per Instructions section Lifting: No more than 5 pounds Bathing Comment: may shower, do not soak in tub Exercise/Sports: Gradually increase as tolerated Driving/Machine Use: Resume 1 day after discharge Weightbearing: Full weightbearing Non-emergency contact: Primary Care Provider, Surgeon and Teacher Resource Call non-emergency contact if: you have any medication questions, your symptoms worsen, your pain is not controlled and you have a fever Follow-up/Referrals: Mei Mei MD [Primary Care Provider] - Rogerio Mclean MD [Physician] - 01/12/20 2:45 pm (FOLLOW UP ONE WEEK FOR REMOVAL OF ELEANOR DRAIN) Diet: Regular Addtl Attending Provider Instructions: Medications: - AUGMENTIN: antibiotic to cover for cholecystitis, take for 14 more doses, first dose at home is this evening - ULTRACET: take 1-2 tablets every 6 hours as needed for pain - COLACE: take 100mg twice a day with 8oz of fluids, stool softener, this is over the counter, can stop taking once you have a bowel movement Cholecystitis, gall stones, stones in common bile duct treated with ERCP (scope) that removed stones from common bile duct, stent placed by gastroenterology labs are rapidly improving, clear for discharge from GI standpoint, they will call you for repeat ERCP and stent removal in 4-[address] 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 Sponge bath around incisions and drain. - Record drain output and color daily, keep record and bring to surgical office with you. - replace dressing around drain as needed to keep clean and dry. Expect drainage when you are up and moving and more active. 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 - You are already scheduled to follow-up with Dr. mclean in 1 week on 01/12/2020 at 2:45 pm. Please call office at [phone] if you have any questions or concerns. Pending Studies at Discharge: No Stand-Alone Forms: My [facility], Opioid Pain Management, Smoking Cessation Medications and DC Order Prescriptions: New amoxicillin-pot clavulanate [Augmentin] 875-125 mg tablet 1 tab PO BID Qty: 14 RF: 0 docusate sodium [Colace] 100 mg capsule 100 mg PO BID Qty: 60 RF: 0 Continued ondansetron HCl [Zofran] 4 mg tablet 4 mg PO Q6H PRN (Reason: nausea and vomiting) Qty: 20 RF: 0 omeprazole 40 mg capsule,delayed release(DR/EC) 40 mg PO DAILY Qty: 30 RF: 2 cyclobenzaprine 5 mg tablet 5 mg PO TID PRN (Reason: muscle spasm) Qty: 20 RF: 0 Changed tramadol-acetaminophen 37.5-325 mg tablet 1 tab PO Q6H PRN (Reason: pain) Qty: 30 RF: 0 Discontinued prednisone 10 mg tablet See Rx Instructions PO DAILY Qty: 30 RF: 0 Discharge Orders: Discharge Order (Routine); Ordered 01/05/20 Ordered By: Fede Angel/Other Patient Handouts: Discharge Instructions Caring for Your Jamie Taylor Drainage Tube Admission Data Admit Date/Time: 01/02/20 20:35 Attending Provider: Fede Langley Admit Provider: Tej Perez Primary Care Provider: Mei Mei Other Providers: Brinda Xiong ; Laine Javed ; Tom Laird Other Interventions: Discharge Summary Assessment (RN) Last Done: 01/05/20 13:41 DC Date/Time DO NOT enter until pt leaves facility: 01/05/20 15:15 Coding Level of Care Code D/C Day Management >30 mins Diagnoses Cholecystitis K81.9 Choledocholithiasis K80.50 Cholangitis K83.09 Dysuria R30.0
[2020-01-05 11:57] LABS: Appearance Urine Clear (Clear); Bacteria Urine Automated Negative (Negative); Bilirubin Urine Negative (Negative); Blood Urine 3+ (Negative); Color Urine Yellow; Glucose Urine UA Negative (Negative); Ketones Urine Negative (Negative); Leukocyte Esterase Urine Negative (Negative); Nitrite Urine Negative (Negative); Protein Urine Negative (Negative); RBC Urine Automated >30 /hpf (0-4); Specific Gravity Urine 1.015 (1.000-1.030); Urobilinogen Urine Negative (Negative)
--- NOTE | 2020-01-05 13:00 | Surgery Progress Note ---
Date of Service January 05, 2020 Assessment & Plan (1) Cholecystitis: POD # 2 s/p Laparoscopic subtotal cholecystectomy -vitals stable, afebrile, leukocytosis resolved - t. bili and LFTs continue to normalize - pain controlled -leelee anant with serosanguineous output Plan: Okay from surgical standpoint for discharge today Home with leelee drain , f/u surgical office 1 week discharge instructions reviewed and documented in discharge PO abx and PO Pain medication prn on discharge Dr. Wadsworth has seen patient and present during my examination, agrees with above,. (2) Choledocholithiasis: (3) Cholangitis: Subjective feeling good had a lot of drainage from drain site, concerned drain moved tolerated regular diet pain controlled, had some back pain yesterday passing gas but no bowel movement yet Physical Exam Constitutional: WD/WN, vitals as above no acute distress and not ill appearing Respiratory: normal respiratory effort Gastrointestinal (Abdomen): Inspection/Auscultation: abdomen normal to inspection; abdomen not distended Percussion/Palpation: abdomen soft; abdomen nontender, no guarding and abdomen not rigid leelee drain with serosanguineous output intact at skin, serosanguineous drainage on dressing Skin: no rashes, warm and dry + incision (Covered with steri strips and bandages, replaced) Psychiatric: A+Ox3, euthymic affect Results & Data Vital Signs (Past 12 Hours) Vital Signs Temp Pulse Resp BP Pulse Ox 01/05/20 07:45 36.7 C 67 16 104/64 95 Laboratory Results 01/05/20 01/05/20 01/05/20 Range/Units 11:35 06:11 06:11 WBC 8.52 (4.8-10.8) K/uL RBC 3.65 L (4.2-5.4) M/uL Hgb 10.2 L (12.0-16.0) g/dL Hct 32.1 L (37-47) % MCV 87.9 (80-100) fL MCH 27.9 (25-34) pg MCHC 31.8 L (32-36) g/dL RDW Std Deviation 47.2 H (36.4-46.3) fL RDW Coeff of José 14.7 H (11.5-14.5) % Plt Count 309 (130-400) K/uL MPV 9.6 (7.4-10.4) fL Immature Gran % (Auto) 0.5 % Neut % (Auto) 73.3 % Lymph % (Auto) 17.3 % [place] % (Auto) 6.7 % Eos % (Auto) 2.1 % Baso % (Auto) 0.1 % Immature Gran # (Auto) 0.04 H (0.00-0.02) K/uL Neut # (Auto) 6.25 (1.4-6.5) K/uL Lymph # (Auto) 1.47 (1.2-3.4) K/uL [place] # (Auto) 0.57 (0.11-0.59) K/uL Eos # (Auto) 0.18 (0-0.5) K/uL Baso # (Auto) 0.01 (0-0.2) K/uL Sodium 145 (136-145) mmol/L Potassium 3.6 (3.5-5.1) mmol/L Chloride 114 H (98-107) mmol/L Carbon Dioxide 27 (21-32) mmol/L Anion Gap 4.0 (3-11) BUN 13 (7-18) mg/dl Creatinine 0.69 (0.6-1.2) mg/dl Est Cr Clr Drug Dosing 86.6 ml/min Est GFR ( Amer) 127.1 Est GFR (Non-Af Amer) 109.7 BUN/Creatinine Ratio 18.7 (10-20) Glucose 93 (70-99) mg/dl Calcium 8.0 L (8.5-10.1) mg/dl Total Bilirubin 1.1 H (0.2-1) mg/dl AST 38 H (15-37) U/L ALT 352 H (12-78) U/L Alkaline Phosphatase 179 H (45-117) U/L Total Protein 5.7 L (6.4-8.2) gm/dl Albumin 2.6 L (3.4-5.0) gm/dl Globulin 3.1 (2.5-4.0) gm/dl Albumin/Globulin Ratio 0.8 L (0.9-2) Urine Color Yellow Urine Appearance Clear (Clear) Urine pH 6.0 (4.5-7.5) Ur Specific [place] 1.015 (1.000-1.030) Urine Protein Negative (Negative) Urine Glucose (UA) Negative (Negative) Urine Ketones Negative (Negative) Urine Blood 3+ H (Negative) Urine Nitrite Negative (Negative) Urine Bilirubin Negative (Negative) Urine Urobilinogen Negative (Negative) Ur Leukocyte Esterase Negative (Negative) Urine WBC (Auto) 1-5 (0-5) /hpf Urine RBC (Auto) >30 H (0-4) /hpf U Hyaline Cast (Auto) 1-5 (0-5) /lpf U Epithel Cells (Auto) 10-20 H (0-5) /lpf Urine Bacteria (Auto) Negative (Negative) 01/05/20 Range/Units 06:10 WBC (4.8-10.8) K/uL RBC (4.2-5.4) M/uL Hgb (12.0-16.0) g/dL Hct (37-47) % MCV (80-100) fL MCH (25-34) pg MCHC (32-36) g/dL RDW Std Deviation (36.4-46.3) fL RDW Coeff of José (11.5-14.5) % Plt Count (130-400) K/uL MPV (7.4-10.4) fL Immature Gran % (Auto) % Neut % (Auto) % Lymph % (Auto) % [place] % (Auto) % Eos % (Auto) % Baso % (Auto) % Immature Gran # (Auto) (0.00-0.02) K/uL Neut # (Auto) (1.4-6.5) K/uL Lymph # (Auto) (1.2-3.4) K/uL [place] # (Auto) (0.11-0.59) K/uL Eos # (Auto) (0-0.5) K/uL Baso # (Auto) (0-0.2) K/uL Sodium (136-145) mmol/L Potassium (3.5-5.1) mmol/L Chloride (98-107) mmol/L Carbon Dioxide (21-32) mmol/L Anion Gap (3-11) BUN (7-18) mg/dl Creatinine 0.69 (0.6-1.2) mg/dl Est Cr Clr Drug Dosing 86.6 ml/min Est GFR ( Amer) 127.1 Est GFR (Non-Af Amer) 109.7 BUN/Creatinine Ratio (10-20) Glucose (70-99) mg/dl Calcium (8.5-10.1) mg/dl Total Bilirubin (0.2-1) mg/dl AST (15-37) U/L ALT (12-78) U/L Alkaline Phosphatase (45-117) U/L Total Protein (6.4-8.2) gm/dl Albumin (3.4-5.0) gm/dl Globulin (2.5-4.0) gm/dl Albumin/Globulin Ratio (0.9-2) Urine Color Urine Appearance (Clear) Urine pH (4.5-7.5) Ur Specific [place] (1.000-1.030) Urine Protein (Negative) Urine Glucose (UA) (Negative) Urine Ketones (Negative) Urine Blood (Negative) Urine Nitrite (Negative) Urine Bilirubin (Negative) Urine Urobilinogen (Negative) Ur Leukocyte Esterase (Negative) Urine WBC (Auto) (0-5) /hpf Urine RBC (Auto) (0-4) /hpf U Hyaline Cast (Auto) (0-5) /lpf U Epithel Cells (Auto) (0-5) /lpf Urine Bacteria (Auto) (Negative)
== END 2020-01-05 15:15 | disposition home or self-care (01) | DRG 418 ==
LOC: ED 14:13 → SUATTDRO 20:35 → 3E 20:35

== ENCOUNTER 2020-01-22 10:21 | Inpatient (IN) ==
--- NOTE | 2020-01-22 11:16 | Emergency Department Note ---
History of Present Illness General Chief Complaint: Abdominal Pain Stated Complaint: ABD PAIN Time Seen by Provider: 01/22/20 10:35 Source: patient Mode of arrival: ambulatory Limitations: no limitations History of Present Illness Provider Complaint: abdominal pain and flank pain Maximum Pain Intensity: 3 This is a 39-year-old female who presents to the ED with a chief complaint of right-sided flank pain as well as some right upper quadrant abdominal pain. The patient states that she had her gallbladder removed and ERCP performed around January 01. She states that since that time, she has been having some right-sided back pain that seems to be worsening. It also seems to be worse when she is lying down. She states that she is using tramadol that helps the pain somewhat but not completely. The patient had blood work 2 days ago at her surgeon's office that revealed a unremarkable chemistry panel. Her bilirubin was 0.4 and her lipase was negative. The patient was referred here for further evaluation as her symptoms were persisting. She denies any nausea, vomiting or diarrhea. She has not had any significant fevers. Home Medications Home Medications Medication Instructions Recorded Confirmed Type tramadol-acetaminophen 1 - 2 tab PO Q6H PRN 01/22/20 01/22/20 History Allergies Allergy/AdvReac Type Severity Reaction Status Date / Time No Known Allergies Allergy Unverified 01/22/20 11:15 Past Med/Surg History Medical History Anemia Surgical History History of section History of knee surgery S/P cholecystectomy 12/05/19 Dr. Paulo Boykin Family History Father Hyperlipidemia Cardiac disorder Hypertension Kidney stone Glaucoma Mother Hyperlipidemia Hypothyroidism Grandmother Diabetes Stomach cancer Unknown Cardiac disorder Hypertension Kidney stone Denies family history of Ovarian cancer Prostate cancer Myocardial infarction Breast cancer Colorectal cancer Social History Preferred Language: Upper Sorbian Communication Ability: Effective Visual Impairment: No Limitations Hearing Ability: Normal Clinical Documentation Spec Required: No Beliefs That Will Affect Care: None marital status: Current Living Situation: Spouse current occupational status: employed 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 Feels Safe at Home: Yes Smoking Status: Never smoker Second Hand Exposure: No ; Hx Alcohol Use: No Hx Substance Use: No Childhood Exposure to Second-Hand Smoke: No Dental Care, Regularly: No Physical Activity Frequency: Does not Exercise Seatbelt Use: always Sunscreen Use: Yes Review of Systems A total of 10 systems reviewed and were otherwise negative Physical Exam Vital Signs: Vital Signs - 24 hr 01/22/20 10:28 01/22/20 12:20 01/22/20 13:22 Temperature 37.1 C Temperature Source Oral Pulse Rate 102 H Pulse Rate [Left F anson] 55 L 64 Respiratory Rate 20 16 20 Respiratory Effort / Characteristics Non-Labored Respiratory Depth Normal Blood Pressure 119/69 Blood Pressure [Le ft Arm] 104/44 L 98/47 L Blood Pressure Sandhya n 85 Blood Pressure Sandhya n [Left Arm] 64 64 Pulse Oximetry 98 99 99 Oxygen Delivery Me thod Room Air Room Air Room Air Sepsis Recent Feve r Within 48 Hours No Sepsis Action Take n by Nursing No Action Required Physical Exam: CONSTITUTIONAL/VITAL SIGNS: Reviewed / noted above. GENERAL: Non-toxic in appearance. INTEGUMENTARY: Warm, dry, and [place]. HEAD: Normocephalic. EYES: without scleral icterus or trauma. ENT/OROPHARYNX: clear and moist. LYMPHADENOPATHY/NECK: Is supple without lymphadenopathy or meningismus. RESPIRATORY: Lungs clear and equal. CARDIOVASCULAR: Regular rate and rhythm. GI/ABDOMEN: Soft and tender in the right upper quadrant and suprapubic area. No organomegaly or pulsatile mass. No rebound or guarding. Normal bowel sounds. EXTREMITIES: Warm and well perfused. BACK: Right-sided CVA tenderness. NEUROLOGICAL: Intact without focal deficits. PSYCHIATRIC: normal affect. MUSCULOSKELETAL: Normally developed with good muscle tone. TRIAGE NURSING DOCUMENTATION REVIEWED. Course Administered Medications Piperacillin Sod/Tazobactam (Sod 3.375 gm/ Dextrose) 100 ml in 115 mls @ 230 mls/hr IV NOW STA Stop: 01/22/20 13:32 Last Admin: 01/22/20 13:19 Dose: 230 mls/hr Documented by: [id number] Ioversol (Optiray 320 100ml) 93 ml IV ONCE PRN PRN Reason: Interaction Checking Stop: 01/26/20 12:14 Last Admin: 01/22/20 12:15 Dose: 93 ml Documented by: [id number] Medical Decision Making Differential Diagnosis Differential considered: pancreatitis, hepatitis,UTI, pyelonephritis, kidney stones, appendicitis, diverticulitis, shingles, bowel obstruction, mesenteric ischemia, intussusception,hernia,ovarian torsion, ruptured ovarian cyst,ectopic , . Medical Records Attestation: I reviewed the patient's medical records. Home Medications Current Medication List: was personally reviewed by me Laboratory Data Attestation: I reviewed the patient's lab results. Result diagrams: 01/22/20 11:20 01/22/20 11:20 Lab Results 01/22/20 01/22/20 01/22/20 Range/Units 11:20 11: 12:00 WBC 4.70 L (4.8-10.8) K/uL RBC 4.18 L (4.2-5.4) M/uL Hgb 12.2 (12.0-16.0) g/dL Hct 36.5 L (37-47) % MCV 87.3 (80-100) fL MCH 29.2 (25-34) pg MCHC 33.4 (32-36) g/dL RDW Std Deviation 48.7 H (36.4-46.3) fL RDW Coeff of José 15.1 H (11.5-14.5) % Plt Count 276 (130-400) K/uL MPV 9.5 (7.4-10.4) fL Immature Gran % (Auto) 0.0 % Neut % (Auto) 64.9 % Lymph % (Auto) 25.5 % [place] % (Auto) 6.0 % Eos % (Auto) 3.4 % Baso % (Auto) 0.2 % Neut # (Auto) 3.05 (1.4-6.5) K/uL Lymph # (Auto) 1.20 (1.2-3.4) K/uL [place] # (Auto) 0.28 (0.11-0.59) K/uL Eos # (Auto) 0.16 (0-0.5) K/uL Baso # (Auto) 0.01 (0-0.2) K/uL Immature Gran # (Auto) 0.00 (0.00-0.02) K/uL Sodium 139 (136-145) mmol/L Potassium 3.1 L (3.5-5.1) mmol/L Chloride 107 (98-107) mmol/L Carbon Dioxide 27 (21-32) mmol/L Anion Gap 6.0 (3-11) BUN 15 (7-18) mg/dl Creatinine 0.79 (0.6-1.2) mg/dl Est Cr Clr Drug Dosing 77.6 ml/min Est GFR ( Amer) 109.3 Est GFR (Non-Af Amer) 94.3 BUN/Creatinine Ratio 19.6 (10-20) Glucose 59 L (70-99) mg/dl Calcium 9.0 (8.5-10.1) mg/dl Total Bilirubin 1.3 H (0.2-1) mg/dl AST 17 (15-37) U/L ALT 30 (12-78) U/L Alkaline Phosphatase 88 (45-117) U/L Total Protein 7.6 (6.4-8.2) gm/dl Albumin 4.0 (3.4-5.0) gm/dl Globulin 3.6 (2.5-4.0) gm/dl Albumin/Globulin Ratio 1.1 (0.9-2) Lipase 121 (73-393) U/L Urine Color Yellow Urine Appearance Clear (Clear) Urine pH 5.0 (4.5-7.5) Ur Specific [place] 1.016 (1.000-1.030) Urine Protein Negative (Negative) Urine Glucose (UA) Negative (Negative) Urine Ketones Negative (Negative) Urine Blood Negative (Negative) Urine Nitrite Negative (Negative) Urine Bilirubin Negative (Negative) Urine Urobilinogen Negative (Negative) Ur Leukocyte Esterase Negative (Negative) Imaging Data Radiologist's Impression: CT scan of the abdomen and pelvis: IMPRESSION: 1. Postoperative change is consistent with partial cholecystectomy. 2. There is evidence of persistent cholecystitis involving the gallbladder remnant. 3. There is no organized fluid collection to indicate abscess. 4. A common bile duct stent is in place. Pneumobilia suggests patency of the stent. 5. There is nonspecific wall thickening and hyperemia involving the common bile duct and the hepatic ducts at the hilum. This may be related to the presence of an indwelling stent. Superimposed cholangitis would be impossible exclude and clinical correlation will be essential. 6. A small volume free fluid in the cul-de-sac is nonspecific and likely within physiologic limits. MDM Narrative This is a 39-year-old female who presents to the ED with a chief complaint of right-sided flank pain as well as some right upper quadrant abdominal pain. The patient states that she had her gallbladder removed and ERCP performed around January 01. She states that since that time, she has been having some right-sided back pain that seems to be worsening. It also seems to be worse when she is lying down. She states that she is using tramadol that helps the pain somewhat but not completely. The patient had blood work 2 days ago at her surgeon's office that revealed a unremarkable chemistry panel. Her bilirubin was 0.4 and her lipase was negative. The patient was referred here for further evaluation as her symptoms were persisting. She denies any nausea, vomiting or diarrhea. She has not had any significant fevers. Her exam shows that her vital signs are unremarkable. She is currently afebrile. Heart rate was around 100. She does have some right-sided CVA tenderness as well as some suprapubic tenderness and right upper quadrant tenderness on my exam. Her wounds appear to be healing well. A CT scan of the abdomen pelvis reveals findings suggesting persistent cholecystitis involving the gallbladder remnant as well as some thickening of the common bile duct that could be related to superimposed cholangitis. The CBC is unremarkable. Complete metabolic panel was also unremarkable with exception of bilirubin of 1.3. This [facility]. Urine was unremarkable. The patient was told the results of the test. I did speak with Dr. Sun about the patient. He recommends medicine admission and GI consultation as well as surgery consultation. The patient was started on IV Zosyn. Impression & Plan Acute cholangitis Discharge Plan Visit Data Chief Complaint: Abdominal Pain Stated Complaint: ABD PAIN ED Provider: Steve Concepcion ED Midlevel Provider: Ashutosh Yip Discharge Problem: Acute cholangitis Patient Disposition: Being Evaluated by Hospitalist Forms Stand Alone Forms: My [facility] Prescriptions Prescriptions: No Action tramadol-acetaminophen 37.5-325 mg tablet 1 - 2 tab PO Q6H PRN (Reason: pain) RF: 0 Referrals Referrals: Mei Mei MD [Primary Care Provider] -
[2020-01-22 11:42] LABS: Basophils # (auto) 0.01 K/uL (0-0.2); Basophils % (auto) 0.2 %; Eosinophils # (auto) 0.16 K/uL (0-0.5); Eosinophils % (auto) 3.4 %; Hematocrit (blood only) 36.5 % (37-47); Hemoglobin 12.2 g/dL (12.0-16.0); Lymphocytes % (auto) 25.5 %; Mean Corpuscular Hemoglobin 29.2 pg (25-34); Mean Corpuscular Hgb Conc 33.4 g/dL (32-36); Mean Corpuscular Volume 87.3 fL (80-100); Mean Platelet Volume 9.5 fL (7.4-10.4); Monocytes # (auto) 0.28 K/uL (0.11-0.59); Neutrophils # (auto) 3.05 K/uL (1.4-6.5); Neutrophils % (auto) 64.9 %; Platelet Count 276 K/uL (130-400); RDW Coefficient of Variation 15.1 % (11.5-14.5); RDW Standard Deviation 48.7 fL (36.4-46.3); Red Blood Count 4.18 M/uL (4.2-5.4)
[2020-01-22 11:54] LABS: BUN Creatinine Ratio 19.6 (10-20); Creatinine Clr Calc Pharmacy 77.6 ml/min; Est GFR (African American) 109.3; Est GFR (Non-African American) 94.3; Potassium 3.1 mmol/L (3.5-5.1)
[2020-01-22 11:57] LABS: Albumin Globulin Ratio 1.1 (0.9-2); Bilirubin,Total 1.3 mg/dl (0.2-1); Globulin 3.6 gm/dl (2.5-4.0); Total Protein 7.6 gm/dl (6.4-8.2)
[2020-01-22] MEDS ORDERED: IOVERSOL 100ml IV PRN (12:15)
[2020-01-22 12:21] LABS: Appearance Urine Clear (Clear); Bilirubin Urine Negative (Negative); Blood Urine Negative (Negative); Color Urine Yellow; Glucose Urine UA Negative (Negative); Ketones Urine Negative (Negative); Leukocyte Esterase Urine Negative (Negative); Nitrite Urine Negative (Negative); Protein Urine Negative (Negative); Specific Gravity Urine 1.016 (1.000-1.030); Urobilinogen Urine Negative (Negative)
--- NOTE | 2020-01-22 12:35 | CT Scan Report ---
CT SCAN OF THE ABDOMEN AND PELVIS WITH IV CONTRAST CLINICAL HISTORY: Postoperative abdominal pain. COMPARISON STUDY: Abdominal CT dated 01/02/2020. TECHNIQUE: Following the IV administration of 93 cc of Optiray 320, CT scan of the abdomen and pelvi s is performed from the lung bases to the proximal femora. Images are reviewed in the axial, sagittal , and coronal planes. IV contrast was administered without complication. A dose lowering technique wa s utilized adhering to the principles of ALARA. CT DOSE: 273.59 mGy.cm FINDINGS: Lung bases: The heart is normal in size and there is trace pericardial fluid. The lung bases are anitha r. Liver: The contrast-enhanced liver is normal in size, contour, and attenuation. A common bile duct st ent is in place. Minimal pneumobilia suggests patency of the stent. There is nonspecific wall thicken ing or hyperemia identified involving the common bile duct and hepatic duct at the hilum. There is mi nimal central intrahepatic biliary ductal dilatation. The hepatic veins and portal veins are patent. 2 subcentimeter hepatic hypodensities likely represent cysts but are too small for definitive charact erization. Gallbladder: Surgical clips are noted in the gallbladder fossa with evidence of partial cholecystecto my. The gallbladder remnant is thick-walled and hyperemic with surrounding inflammatory change. The a ppearance is consistent with persistent cholecystitis. There is no evidence of surrounding abscess. Spleen: Normal in size and attenuation. Pancreas: Unremarkable. Adrenal glands: Unremarkable. Kidneys: The contrast enhanced kidneys are normal in size and without hydronephrosis. The kidneys enh ance symmetrically. Scattered subcentimeter cortical hypodensities likely represent cysts but are too small for definitive characterization. Abdominal vasculature: The abdominal aorta is normal in course and caliber. Bowel: There is no bowel obstruction. The appendix is well-visualized and normal. Peritoneum: There is no intraperitoneal free air or abdominal ascites. There is a small fat-containin g umbilical hernia. Postoperative change is noted superior to the umbilicus. Lymphadenopathy: None. Pelvic viscera: The bladder, uterus, and adnexa are normal as imaged. There are bilateral ovarian fol licles. An involuting follicle is noted on the left. A small volume of free fluid is seen in the cul- de-sac. Skeletal structures: No lytic or blastic lesions are seen. IMPRESSION: 1. Postoperative change is consistent with partial cholecystectomy. 2. There is evidence of persistent cholecystitis involving the gallbladder remnant. 3. There is no organized fluid collection to indicate abscess. 4. A common bile duct stent is in place. Pneumobilia suggests patency of the stent. 5. There is nonspecific wall thickening and hyperemia involving the common bile duct and the hepatic ducts at the hilum. This may be related to the presence of an indwelling stent. Superimposed cholangi tis would be impossible exclude and clinical correlation will be essential. 6. A small volume free fluid in the cul-de-sac is nonspecific and likely within physiologic limits. ACT 112: Negative or not required by law. Electronically signed by: Wilfrido Rai M.D. 01/22/2020 12:34 PM
[2020-01-22] MEDS ORDERED: PIPERACILLIN/TAZOBACTAM 3.375 GM in DEXTROSE 5% 100 ML/100 ML BAG IV STA (13:03)
[2020-01-22] MEDS ORDERED: PIPERACILL/TAZOBAC CONSULT ACTIVE PRN ×2 (13:03→16:12)
--- NOTE | 2020-01-22 14:10 | History & Physical Report ---
Date of Service January 22, 2020 Assessment & Plan (1) Cholecystitis: CTAP noted for persistent cholecytsitis s/p partial lap kathi with stent placed on 01/01 Stent noted as patent UA neg Tbili with mild elevation, other LFTs WNL GI c/s for possible ERCP Started on zosyn in the ED, will continue IVF WBC low, afebrile Lipase WNL and pancreas WNL on CTAP, however pt with epigastric TTP, possibly early pancreatitis NPO, last PO intake was 9a on 01/[address] Wadsworth who feels this is not a surgical issue and requests GI management (2) Hypokalemia: Replace and monitor (3) DVT prophylaxis: SCDs History of Present Illness Primary Care Provider: Mei Mei MD 39 y/o F c/o worsening back and abd pain. Pt states she had a cholecystectomy earlier this month (01/01). Her presenting sx leading to dx was back pain. She states that this pain never resolved s/p kathi and has continued to worsening. She cannot sleep at night unless she takes a tramadol. She states that she saw Dr. Wadsworth in f/u and was told this was not related to her surgery and to come to the ED. Pt states that she started to have abd pain "on and off" after her lap kathi. This has continued. Over the last few days, she has developed more sharp pains in the upper abd that do not resolve and get worse if she lies on her side . She has had ongoing nausea without emesis since her surgery. She states that she does not have much nausea during the day and can eat, but becomes nauseated after eating. She has more persistent nausea at night, even if she does not eat. Pt denies fever, SOB, chest pain, c/d, LE pain or swelling. Pt has no pain with urination, however she does note that her urine is more yellow again, which was the case with her initial presentation. Allergies Allergy/AdvReac Type Severity Reaction Status Date / Time No Known Allergies Allergy Unverified 01/22/20 11:15 Home Medications Home Medications Medication Instructions Recorded Confirmed Type tramadol-acetaminophen 1 - 2 tab PO Q6H PRN 01/22/20 01/22/20 History Past Med/Surg History Medical History Anemia Surgical History History of section History of knee surgery S/P cholecystectomy 12/05/19 Dr. Paulo Boykin Family History Father Hyperlipidemia Cardiac disorder Hypertension Kidney stone Glaucoma Mother Hyperlipidemia Hypothyroidism Grandmother Diabetes Stomach cancer Unknown Cardiac disorder Hypertension Kidney stone Denies family history of Ovarian cancer Prostate cancer Myocardial infarction Breast cancer Colorectal cancer Social History Preferred Language: Irish Communication Ability: Effective Visual Impairment: No Limitations Hearing Ability: Normal Patient Relations Liaison Required: No Beliefs That Will Affect Care: None marital status: Current Living Situation: Spouse current occupational status: employed 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 Feels Safe at Home: Yes Smoking Status: Never smoker Second Hand Exposure: No ; Hx Alcohol Use: No Hx Substance Use: No Childhood Exposure to Second-Hand Smoke: No Dental Care, Regularly: No Physical Activity Frequency: Does not Exercise Seatbelt Use: always Sunscreen Use: Yes Review of Systems Review of Systems: Pertinent positives and negatives reviewed in HPI--all others negative Physical Exam Constitutional: WD/WN, vitals as above Eyes: normal visual mcnulty by confrontation and + anicteric sclerae Neck: normal visual inspection and trachea midline Respiratory: normal respiratory effort, lungs clear to auscultation Cardiovascular: Rate/Rhythm: regular rate and regular rhythm Gastrointestinal (Abdomen): Inspection/Auscultation: + abdomen distended Percussion/Palpation: + abdomen tender (epigastric) and abdomen soft Musculoskeletal: Head/Neck/Chest: normocephalic and head atraumatic negative for edema, peripheral pulses intact Skin: no rashes, warm and dry sutures are clean and dry. Epigastric incision site with mildly excoriated skin around the incision site, but healing Neurologic: awake; not confused Speech / Cognition: normal speech Psychiatric: A+Ox3, euthymic affect Results & Data Results & Data ([facility]) Vital Signs (Past 12 Hours) Vital Signs Temp Pulse Pulse Resp BP BP Pulse Ox 01/22/20 13:22 64 20 98/47 L 99 01/22/20 12:20 55 L 16 104/44 L 99 01/22/20 10:28 37.1 C 102 H 20 119/69 98 Diagnostic Findings CTAP: 1. Postoperative change is consistent with partial cholecystectomy. 2. There is evidence of persistent cholecystitis involving the gallbladder remnant. 3. There is no organized fluid collection to indicate abscess. 4. A common bile duct stent is in place. Pneumobilia suggests patency of the stent. 5. There is nonspecific wall thickening and hyperemia involving the common bile duct and the hepatic ducts at the hilum. This may be related to the presence of an indwelling stent. Superimposed cholangitis would be impossible exclude and clinical correlation will be essential. 6. A small volume free fluid in the cul-de-sac is nonspecific and likely within physiologic limits. Code Status & VTE Plan Code Status Full code VTE Prophylaxis Plan VTE Prophylaxis will be ordered: Yes PG Care Time/CCT Total # of Minutes Spent Total Time Spent with Patient: Total time spent is greater than 50% in coordination of care (as documented) at patient's floor/unit and/or counseling patient: Coding Level of Care Code 73957 Initial Inpt Care Lvl 3 Diagnoses Cholecystitis K81.9 Hypokalemia E87.6 DVT prophylaxis Z29.9
[2020-01-22] MEDS ORDERED: ACETAMINOPHEN 325 MG TAB PO PRN (16:12)
[2020-01-22] MEDS ORDERED: POTASSIUM PHOS 3 MMOL/1 ML INFUSION IV STA (16:12)
[2020-01-22] MEDS ORDERED: MAGNESIUM HYDROXIDE SUSP 30 ML UDC PO PRN (16:12)
[2020-01-22] MEDS ORDERED: POTASSIUM PHOSPHATE 15 MMOL in SODIUM CHLORIDE 0.9% 250 ML IV ONE (16:30)
[2020-01-22] MEDS: D5W AND 1/2NSS + 20MEQ KCL 20 MEQ/1,000 ML BAG IV SCH (17:25)
[2020-01-22] MEDS: PIPERACILLIN/TAZOBACTAM 3.375 GM in DEXTROSE 5% 100 ML IV SCH (17:25)
--- NOTE | 2020-01-22 19:14 | Surgery Consultation ---
Date of Consultation January 22, 2020 Assessment & Plan (1) Back pain: pt is a S/P ERCP, laparoscopic subtotal cholecystectomy for cholangitis, and acute cholecystectomy, POD 19, pt is still have some back pain, IMP: S/P ERCP, laparoscopic subtotal cholecystectomy, back, (T) bili 1.3 no surgical indication now, conservative treatment, consult GI to R/O biliary structure? repeat labs in am, will F/U History of Present Illness Attending Physician: Thi Vang DO CC: abdominal and back pain History of Present Illness Primary Care Provider: Mei Mei MD 39 y/o F c/o worsening back and abd pain. Pt states she had a cholecystectomy earlier this month (01/01). Her presenting sx leading to dx was back pain. She states that this pain never resolved s/p kathi and has continued to worsening. She cannot sleep at night unless she takes a tramadol. She states that she saw Dr. Wadsworth in f/u and was told this was not related to her surgery and to come to the ED. Pt states that she started to have abd pain "on and off" after her lap kathi. This has continued. Over the last few days, she has developed more sharp pains in the upper abd that do not resolve and get worse if she lies on her side. She has had ongoing nausea without emesis since her surgery. She states that she does not have much nausea during the day and can eat, but becomes nauseated after eating. She has more persistent nausea at night, even if she does not eat. Pt denies fever, SOB, chest pain, c/d, LE pain or swelling. Pt has no pain with urination, however she does note that her urine is more yellow again, which was the case with her initial presentation. I ( Rogerio Wadsworth MD ) reviewed pt's H/P, labs, CT scan with pt, the pain is most on back, the pain is not related to food, pt denies fever, no nausea, no vomiting. Allergies Allergy/AdvReac Type Severity Reaction Status Date / Time No Known Allergies Allergy Unverified 01/22/20 11:15 Home Medications Home Medications Medication Instructions Recorded Confirmed Type tramadol-acetaminophen 1 - 2 tab PO Q6H PRN 01/22/20 01/22/20 History Past Med/Surg History Medical History Anemia Surgical History History of section History of knee surgery S/P cholecystectomy 12/05/19 Dr. 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: No Beliefs That Will Affect Care: None marital status: Current Living Situation: Spouse current occupational status: employed 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 Feels Safe at Home: Yes Smoking Status: Never smoker Second Hand Exposure: No ; Hx Alcohol Use: No Hx Substance Use: No Childhood Exposure to Second-Hand Smoke: No Dental Care, Regularly: No Physical Activity Frequency: Does not Exercise Seatbelt Use: always Sunscreen Use: Yes Review of Systems Review of Systems: Pertinent positives and negatives reviewed in HPI--all others negative Physical Exam Constitutional: WD/WN, vitals as above Eyes: normal visual mcnulty by confrontation and + anicteric sclerae Neck: normal visual inspection and trachea midline Respiratory: normal respiratory effort, lungs clear to auscultation Cardiovascular: Rate/Rhythm: regular rate and regular rhythm Gastrointestinal (Abdomen): Inspection/Auscultation: + abdomen distended Percussion/Palpation: + abdomen tender (epigastric) and abdomen soft Musculoskeletal: Head/Neck/Chest: normocephalic and head atraumatic negative for edema, peripheral pulses intact Skin: no rashes, warm and dry sutures are clean and dry. Epigastric incision site with mildly excoriated skin around the incision site, but healing Neurologic: awake; not confused Speech / Cognition: normal speech Psychiatric: A+Ox3, euthymic affect Allergies Allergy/AdvReac Type Severity Reaction Status Date / Time No Known Allergies Allergy Unverified 01/22/20 11:15 Home Medications Home Medications Medication Instructions Recorded Confirmed Type tramadol-acetaminophen 1 - 2 tab PO Q6H PRN 01/22/20 01/22/20 History Patient History Medical History Anemia Surgical History History of section History of knee surgery S/P cholecystectomy 12/05/19 Dr. 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: No Beliefs That Will Affect Care: None marital status: Current Living Situation: Spouse current occupational status: employed 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 Other Information That Helps Us Care for You: No Feels Safe at Home: Yes Safety Concerns: Feels Safe At This Time Smoking Status: Never smoker Second Hand Exposure: No ; Hx Alcohol Use: No Hx Substance Use: No Childhood Exposure to Second-Hand Smoke: No Dental Care, Regularly: No Physical Activity Frequency: Does not Exercise Seatbelt Use: always Sunscreen Use: Yes Physical Exam Constitutional: WD/WN, vitals as above well developed and well nourished Eyes: PERRL, conjunctivae normal, anicteric sclerae ENMT: external ear and nose normal, oropharynx normal Neck: trachea midline, no thyromegaly Respiratory: normal respiratory effort, lungs clear to auscultation Cardiovascular: RRR, no murmur, no edema Rate/Rhythm: regular rate and regular rhythm Gastrointestinal (Abdomen): normal bowel sounds, soft, nontender, no h epatosplenomegaly soft, no distend, all incisions heal well, no redness, mild tenderness at right back, no tenderness at RUQ, BS + Musculoskeletal: no cyanosis or clubbing, extremities motor strength 5/5 Skin: no rashes, warm and dry Neurologic: patellar DTR's 2+ bilat, sensation intact Psychiatric: Orientation: alert and oriented x 3 Results & Data Vital Signs (Past 12 Hours) Vital Signs Temp Pulse Pulse Resp BP BP Pulse Ox 01/22/20 15:50 36.9 C 76 16 93/64 L 91 01/22/20 15:42 60 18 100/54 L 98 01/22/20 13:22 64 20 98/47 L 99 01/22/20 12:20 55 L 16 104/44 L 99 01/22/20 10:28 37.1 C 102 H 20 119/69 98 Laboratory Results Abnormal lab results 01/22/20 01/22/20 Range/Units 11:20 11:20 WBC 4.70 L (4.8-10.8) K/uL RBC 4.18 L (4.2-5.4) M/uL Hct 36.5 L (37-47) % RDW Std Deviation 48.7 H (36.4-46.3) fL RDW Coeff of José 15.1 H (11.5-14.5) % Potassium 3.1 L (3.5-5.1) mmol/L Glucose 59 L (70-99) mg/dl Total Bilirubin 1.3 H (0.2-1) mg/dl Diagnostic Findings CT SCAN OF THE ABDOMEN AND PELVIS WITH IV CONTRAST CLINICAL HISTORY: Postoperative abdominal pain. COMPARISON STUDY: Abdominal CT dated 01/02/2020. TECHNIQUE: Following the IV administration of 93 cc of Optiray 320, CT scan of the abdomen and pelvis is performed from the lung bases to the proximal femora. Images are reviewed in the axial, sagittal, and coronal planes. IV contrast was administered without complication. A dose lowering technique was utilized adhering to the principles of ALARA. CT DOSE: 273.59 mGy.cm FINDINGS: Lung bases: The heart is normal in size and there is trace pericardial fluid. The lung bases are clear. Liver: The contrast-enhanced liver is normal in size, contour, and attenuation. A common bile duct stent is in place. Minimal pneumobilia suggests patency of the stent. There is nonspecific wall thickening or hyperemia identified involving the common bile duct and hepatic duct at the hilum. There is minimal central intrahepatic biliary ductal dilatation. The hepatic veins and portal veins are patent. 2 subcentimeter hepatic hypodensities likely represent cysts but are too small for definitive characterization. Gallbladder: Surgical clips are noted in the gallbladder fossa with evidence of partial cholecystectomy. The gallbladder remnant is thick-walled and hyperemic with surrounding inflammatory change. The appearance is consistent with persistent cholecystitis. There is no evidence of surrounding abscess. Spleen: Normal in size and attenuation. Pancreas: Unremarkable. Adrenal glands: Unremarkable. Kidneys: The contrast enhanced kidneys are normal in size and without hydronephrosis. The kidneys enhance symmetrically. Scattered subcentimeter cortical hypodensities likely represent cysts but are too small for definitive characterization. Abdominal vasculature: The abdominal aorta is normal in course and caliber. Bowel: There is no bowel obstruction. The appendix is well-visualized and normal. Peritoneum: There is no intraperitoneal free air or abdominal ascites. There is a small fat-containing umbilical hernia. Postoperative change is noted superior to the umbilicus. Lymphadenopathy: None. Pelvic viscera: The bladder, uterus, and adnexa are normal as imaged. There are bilateral ovarian follicles. An involuting follicle is noted on the left. A small volume of free fluid is seen in the cul-de-sac. Skeletal structures: No lytic or blastic lesions are seen. IMPRESSION: 1. Postoperative change is consistent with partial cholecystectomy. 2. There is evidence of persistent cholecystitis involving the gallbladder remnant. 3. There is no organized fluid collection to indicate abscess. 4. A common bile duct stent is in place. Pneumobilia suggests patency of the stent. 5. There is nonspecific wall thickening and hyperemia involving the common bile duct and the hepatic ducts at the hilum. This may be related to the presence of an indwelling stent. Superimposed cholangitis would be impossible exclude and clinical correlation will be essential. 6. A small volume free fluid in the cul-de-sac is nonspecific and likely within physiologic limits.
[2020-01-22] MEDS ORDERED: ACETAMINOPHEN 1000 MG/100 ML IV IV PRN (22:18)
[2020-01-22] MEDS ORDERED: KETOROLAC TROMETHAMINE 15 MG/ML VIAL IV PRN (22:19)
[2020-01-22] MEDS ORDERED: MoRPHine SULFATE 2 MG/ML CARP IV PRN (22:19)
[2020-01-22] MEDS ORDERED: METOCLOPRAMIDE HCL INJ 5 MG/ML 2 ML VIAL IV PRN (22:25)
[2020-01-22] MEDS ORDERED: ONDANSETRON INJ 2 MG/ML 2 ML VIAL IV PRN (22:25)
[2020-01-22] MEDS: TRAMADOL HCL 50 MG TABLET PO PRN (22:37)
--- NOTE | 2020-01-22 22:40 | Communication Note ---
Date of Service: January 22, 2020 Notified that pt was reporting nausea with increasing abdominal pain. The tylenol 650mg ordered was made 1000mg q8h PRN. IV Toradol 15mg q6h PRN and Tramadol 50mg q4h PRN were also ordered tonight for pain. IV Zofran q6h and IV reglan 10mg q6h were also added for nausea. 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
[2020-01-23] MEDS: PIPERACILLIN/TAZOBACTAM 3.375 GM in DEXTROSE 5% 100 ML IV SCH ×3 (02:11→18:25)
[2020-01-23] MEDS: D5W AND 1/2NSS + 20MEQ KCL 20 MEQ/1,000 ML BAG IV SCH ×2 (02:14→12:45)
[2020-01-23 08:15] LABS: Eosinophils # (auto) 0.16 K/uL (0-0.5); Eosinophils % (auto) 5.2 %; Hematocrit (blood only) 36.4 % (37-47); Hemoglobin 11.6 g/dL (12.0-16.0); Lymphocytes # (auto) 1.16 K/uL (1.2-3.4); Mean Corpuscular Hgb Conc 31.9 g/dL (32-36); Mean Corpuscular Volume 87.7 fL (80-100); Mean Platelet Volume 9.4 fL (7.4-10.4); Monocytes # (auto) 0.19 K/uL (0.11-0.59); Monocytes % (auto) 6.2 %; Neutrophils # (auto) 1.54 K/uL (1.4-6.5); Neutrophils % (auto) 50.6 %; Platelet Count 264 K/uL (130-400); RDW Standard Deviation 47.8 fL (36.4-46.3); Red Blood Count 4.15 M/uL (4.2-5.4); White Blood Count 3.05 K/uL (4.8-10.8)
[2020-01-23 08:52] LABS: Albumin Level 3.7 gm/dl (3.4-5.0); Bilirubin Direct 0.5 mg/dl (0-0.2); Calcium 8.8 mg/dl (8.5-10.1); Creatinine Clr Calc Pharmacy 70.7 ml/min; Est GFR (Non-African American) 88.8; Magnesium 2.2 mg/dl (1.8-2.4)
[2020-01-23 08:53] LABS: Bilirubin,Total 1.9 mg/dl (0.2-1); Phosphorus 4.2 mg/dl (2.5-4.9); Total Protein 6.7 gm/dl (6.4-8.2)
--- NOTE | 2020-01-23 09:42 | Gastrointestinal Consultation ---
Date of Consultation January 23, 2020 Assessment & Plan (1) Cholecystitis: (2) Right upper quadrant abdominal pain: (3) Back pain: Pt is a 39 y/o female who was s/p ERCP w biliary stent placement for cholangitis, choledocholithiasis; followed by subtotal cholecystectomy on 01/03/2020, recently having increased RUQ -> back pain in last week. LFTs showed increasing Tbili, CT abd/pelvis showed cholecystitis on gallbladder remnant w/o fluid collection, abscess. Biliary stent in place, patent. - Given rising Tbili and hx of cholangitis, we plan to continue IV antibx. Also would schedule her for repeat ERCP and biliary stent exchange today in OR by Dr. Martinez Alfonso. Please keep pt NPO - Surgery following - Trend LFTs Supervising Physician Co-Signing Physician Notes I saw and evaluated the patient. She presented with worsening back discomfort. She describes having intermittent pain upper back and lower abdomen over the past few weeks. She describes having a stabbing-like pain in in the right abodomen since placement of a biliary stent a few weeks ago. Of note it appears that her gallbladder surgery was very complicated as she had a subtotal cholecystectomy performed. Physical exam No obvious distress No icterus today No right upper quadrant tenderness Impression: Patient with intermittent discomfort status post ERCP several weeks ago for cholangitis. Perhaps the patient's discomfort is related to the stent. We will proceed with repeat ERCP today for stent removal and possible revision. I have discussed the risks with the patient to include bleeding, infection, perforation, pancreatitis and need for follow-up studies. History of Present Illness Reason for Consultation: Persistent cholecystitis Requesting Physician: Dr. Moisés Hurtado Attending Physician: Dr. Martinez Alfonso History of Present Illness Pt is a 39 y/o female who was s/p ERCP w biliary stent placement for cholangitis, choledocholithiasis; followed by subtotal cholecystectomy on 01/03/2020 who presented w RUQ pain. Pt reports initially pain is improved but in last week it's progressively worse and w radiating towards her back. She denies fevers, chills, CP, SOB, n/v, or bowel habit changes, jaundice. Labs w/o signs of leukocytosis, LFT w normalized transaminases and alk phose however Tbili increased from 1.5 -1.[address] abd/pelvis showed signs of persistent cholecystitis on gallbladder remnant, no abscess or fluid collection; biliary stent in place, patent. There is nonspecific wall thickening and hyperemia involving the common bile duct and the hepatic ducts at the hilum. This may be r elated to the presence of an indwelling stent, however cholangitis not excluded Allergies Allergy/AdvReac Type Severity Reaction Status Date / Time No Known Allergies Allergy Unverified 01/22/20 11:15 Home Medications Home Medications Medication Instructions Recorded Confirmed Type tramadol-acetaminophen 1 - 2 tab PO Q6H PRN 01/22/20 01/22/20 History Patient History Medical History Anemia Surgical History History of section History of knee surgery S/P cholecystectomy 12/05/19 Dr. Paulo Boykin Family History Father Hyperlipidemia Cardiac disorder Hypertension Kidney stone Glaucoma Mother Hyperlipidemia Hypothyroidism Grandmother Diabetes Stomach cancer Unknown Cardiac disorder Hypertension Kidney stone Denies family history of Ovarian cancer Prostate cancer Myocardial infarction Breast cancer Colorectal cancer Social History Preferred Language: Tuvaluan Communication Ability: Effective Visual Impairment: No Limitations Hearing Ability: Normal Bus Assistant Required: No Beliefs That Will Affect Care: None marital status: Current Living Situation: Spouse current occupational status: employed 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 Other Information That Helps Us Care for You: No Feels Safe at Home: Yes Safety Concerns: Feels Safe At This Time Smoking Status: Never smoker Second Hand Exposure: No ; Hx Alcohol Use: No Hx Substance Use: No Childhood Exposure to Second-Hand Smoke: No Dental Care, Regularly: No Physical Activity Frequency: Does not Exercise Seatbelt Use: always Sunscreen Use: Yes Review of Systems Review of Systems: All systems reviewed & are unremarkable except as noted in HPI & below Physical Exam Constitutional: WD/WN, vitals as above well groomed, cooperative and comfortable Eyes: PERRL, conjunctivae normal, anicteric sclerae ENMT: external ear and nose normal, oropharynx normal Respiratory: normal respiratory effort, lungs clear to auscultation Cardiovascular: RRR, no murmur, no edema Gastrointestinal (Abdomen): Inspection/Auscultation: + hypoactive bowel sounds Percussion/Palpation: + abdomen tender (RUQ, LUQ, LLQ) and abdomen soft Skin: no rashes, warm and dry no jaundice Psychiatric: A+Ox3, euthymic affect Lymphatic: no lymphedema Results & Data ([facility]) Vital Signs (Past 12 Hours) Vital Signs Temp Pulse Resp BP Pulse Ox 01/23/20 07:17 36.7 C 58 L 18 86/52 L 95 01/22/20 23:35 36.9 C 54 L 16 90/51 L 95
--- NOTE | 2020-01-23 11:30 | Surgery Progress Note ---
Date of Service still have some right side abdominal pain with back pain, no nausea, no vomiting, no fever, she tolerated diet, today (T ) bili is 1.9, normal WBC January 23, 2020 Assessment & Plan (1) Back pain: pt is a S/P ERCP, laparoscopic subtotal cholecystectomy for cholangitis, and acute cholecystectomy, POD 19, pt is still have some back pain, IMP: S/P ERCP, laparoscopic subtotal cholecystectomy, back, (T) bili 1.3 no surgical indication now, conservative treatment, consult GI to R/O biliary structure? repeat labs in am, will F/U 01/23/2020 11:28AM D/W GI DR. Alfonso, he will do ERCP today, conservative treatment now, agricultural production engineer surgeon will cover the weekend, Thanks, Physical Exam Constitutional: WD/WN, vitals as above well developed and well nourished Eyes: PERRL, conjunctivae normal, anicteric sclerae ENMT: external ear and nose normal, oropharynx normal Neck: trachea midline, no thyromegaly Respiratory: normal respiratory effort, lungs clear to auscultation Cardiovascular: RRR, no murmur, no edema Rate/Rhythm: regular rate and regular rhythm Gastrointestinal (Abdomen): normal bowel sounds, soft, nontender, no hepatosplenomegaly soft, mild tenderness at RUQ, no rebound pain, Musculoskeletal: no cyanosis or clubbing, extremities motor strength 5/5 Skin: no rashes, warm and dry Neurologic: patellar DTR's 2+ bilat, sensation intact Psychiatric: Orientation: alert and oriented x 3 Results & Data Vital Signs (Past 12 Hours) Vital Signs Temp Pulse Resp BP Pulse Ox 01/23/20 07:17 36.7 C 58 L 18 86/52 L 95 01/22/20 23:35 36.9 C 54 L 16 90/51 L 95
--- NOTE | 2020-01-23 11:39 | Hospitalist Progress Note ---
Date of Service January 23, 2020 Assessment & Plan (1) Cholecystitis: CTAP noted for persistent cholecytsitis s/p partial lap kathi with stent placed on 01/01 Stent noted as patent UA neg Tbili with mild elevation, other LFTs WNL Lipase WNL and pancreas WNL on CTAP, however pt with continued epigastric TTP, possibly early pancreatitis NPO, Dr. Wadsworth from surgery consulted - recommends GI management with conservative care. GI consulted and will take patient for ERCP today (2) Hypokalemia: Resolved (3) DVT prophylaxis: SCDs Admission and Anticipated Discharge Date Admission Date: January 22, 2020 Subjective Ms. Pierre Neumann continues to have back and right upper quadrant pain as well as tenderness upper middle abdomen. She is no longer nauseas. ROS Constitutional: no chills, aches, sweats or fever Respiratory: no sob,cough, sputum, or wheezing Cardiac: no chest pain, palpitations, edema, orthopnea or lightheadedness GI: see HPI : no dysuria or hesitancy Extremities: no joint pain or weakness Skin: no rash All other systems reviewed and negative Physical Exam Physical Exam: General: no distress Eyes: normal inspection, PERLL Respiratory: chest non tender, clear to auscultation, normal breath sounds, no respiratory distress, no accessory muscle use Cardiac: regular rate and rhythm, no rub or gallop, no murmur, no edema, no jvd GI/: active bowel sounds, no abd pain or tenderness, soft, non distended Extremities: normal range of motion, normal strength, non tender Neuro/Psych: alert and oriented x 3, normal mood and affect Skin: normal color, dry Results & Data Results & Data ([facility]) Vital Signs (Past 12 Hours) Vital Signs Temp Pulse Resp BP Pulse Ox 01/23/20 07:17 36.7 C 58 L 18 86/52 L 95 PG Care Time/CCT Total # of Minutes Spent Total Time Spent with Patient: Total time spent is greater than 50% in coordination of care (as documented) at patient's floor/unit and/or counseling patient: Coding Level of Care Code 78735 Subseq Hosp Care Lvl 2 Diagnoses Cholecystitis K81.9 Hypokalemia E87.6 DVT prophylaxis Z29.9
[2020-01-23] MEDS ORDERED: MIDAZOLAM HCL 1 MG/ML 2ML VIAL ONE (12:52)
[2020-01-23] MEDS ORDERED: fentaNYL citrate 100 MCG/2 ML VIAL ONE (12:52)
[2020-01-23] MEDS ORDERED: SCOPOLAMINE 1.5 MG TDSY TD ONE ×2 (13:29→13:41)
[2020-01-23] MEDS ORDERED: PROMETHAZINE HCL 12.5 MG in SODIUM CHLORIDE 0.9% 50 ML IV PRN (13:30)
[2020-01-23] MEDS ORDERED: ATROPINE SULFATE 0.1 MG/ML 10ML SYR IV PRN (13:30)
[2020-01-23] MEDS ORDERED: HYDROmorphone INJ 2 MG/ML SYR/VIAL IV PRN (13:30)
[2020-01-23] MEDS ORDERED: ONDANSETRON INJ 2 MG/ML 2 ML VIAL IV PRN (13:30)
[2020-01-23] MEDS ORDERED: ePHEDrine sulfate 50 MG/ML AMP IV PRN (13:30)
[2020-01-23] MEDS ORDERED: fentaNYL citrate 100 MCG/2 ML VIAL IV PRN (13:30)
[2020-01-23] MEDS ORDERED: LIDOCAINE HCL 2% 2 ML VIAL/AMP(20MG/ML) INFIL ONE (13:32)
[2020-01-23] MEDS ORDERED: DEXAMETHASONE SOD INJ 4 MG/ML VIAL ONE (13:32)
[2020-01-23] MEDS ORDERED: ONDANSETRON INJ 2 MG/ML 2 ML VIAL ONE (13:32)
[2020-01-23] MEDS ORDERED: PROPOFOL IV EMULSION 10 MG/ML 20 ML VIAL IV ONE (13:32)
--- NOTE | 2020-01-23 13:32 | Anesthesiology Consultation ---
Date of Service January 23, 2020 Assessment & Plan Consults Requested none ASA ASA2 Proposed Anesthesia Anesthesia Type: General Risk / Benefits Reviewed With: PT / POA / Parent / Guardian, Accepts Plan and Informed Consent Obtained History Surgery Operation Date: 01/23/20 10:40 Proposed Procedures p Endoscopic Retrograde Cholangiopancreatogram - Martinez Alfonso Height/Weight Height: 5 ft 3 in Weight: 49.2 kg Allergies Allergy/AdvReac Type Severity Reaction Status Date / Time No Known Allergies Allergy Unverified 01/22/20 11:15 Medications Home Medications Medication Instructions Recorded Confirmed Last Taken tramadol-acetaminophen 1 - 2 tab PO Q6H PRN 01/22/20 01/22/20 01/22/20 03:00 1 tablet Active Medications Generic Name Dose Route Start Last Admin Trade Name Freq PRN Reason Stop Dose Admin Acetaminophen 1,000 mg 01/22/20 22:18 01/23/20 11:51 Ofirmev IV 01/25/20 22:17 1,000 mg Q8H PRN Administration Pain Potassium Chloride/Dextrose/Sod Cl 20 meq in 1,000 mls @ 100 mls/hr 01/22/20 16:45 01/23/20 12:42 D5w And 1/2nss + 20meq Kcl IV 02/21/20 16:44 Infused .Q10H CARLOS Infusion Piperacillin Sod/Tazobactam 115 mls @ 28.75 mls/hr 01/22/20 18:00 01/23/20 10:39 Sod 3.375 gm/ Dextrose IV 02/01/20 17:59 28.8 mls/hr Q8H CARLOS Administration Protocol Ioversol 93 ml 01/22/20 12:15 01/22/20 12:15 Optiray 320 100ml IV 01/26/20 12:14 93 ml ONCE PRN Administration Interaction Checking Metoclopramide HCl 10 mg 01/22/20 22:25 01/22/20 22:38 Reglan IV 02/21/20 22:24 10 mg Q6H PRN Administration Nausea Tramadol HCl 50 mg 01/22/20 22:24 01/22/20 22:37 Ultram PO 02/21/20 22:23 50 mg Q4H PRN Administration Pain NPO Date Last Intake of Fluids: 01/23/20 Time Last Intake of Fluids: 00:00 Date Last Intake of Solids: 01/23/20 Time Last Intake of Solids: 00:00 Past Medical History Medical History Anemia Exercise / Class Metabolic Activity II 4-5 Yardwork/Stairs/Walk up hill Past Family History Family History Father Hyperlipidemia Cardiac disorder Hypertension Kidney stone Glaucoma Mother Hyperlipidemia Hypothyroidism Grandmother Diabetes Stomach cancer Unknown Cardiac disorder Hypertension Kidney stone Denies family history of Ovarian cancer Prostate cancer Myocardial infarction Breast cancer Colorectal cancer Past Surgical History Surgical History History of section History of knee surgery S/P cholecystectomy 12/05/19 Dr. Paulo Boykin Past Anesthesia History No Hx of Anesthesia Complications and No Family Hx of Anesthesia Complications History of PONV No Hx of PONV and No Hx of Motion Sickness Social History Smoking Status: Never smoker Hx Alcohol Use: No Hx Substance Use: No substance use type: does not use Review of Systems denies fever/cough/ colds/ chest pain/ SOB/ RAZA Constitutional: no fever and no chills Respiratory: no cough and no dyspnea denies RAZA Cardiovascular: no chest pain and no dyspnea on exertion Physical Exam Vital Signs Last Vital Signs Temp 36.7 C 01/23/20 07:17 Pulse 58 L 01/23/20 07:17 Resp 18 01/23/20 07:17 BP 86/52 L 01/23/20 07:17 Pulse Ox 95 01/23/20 07:17 ENMT Mouth: no TMJ abnormality and no dentition abnormality Thyromental Distance: > or= 3.5 Finger Breadths Mallampati Class: II Neck neck extension not limited Respiratory normal respiratory effort; no respiratory distress Auscultation: lungs clear to auscultation bilaterally Cardiovascular Rate/Rhythm: regular rate and regular rhythm Neurologic moves all extremities Psychiatric Orientation: alert and oriented x 3 Testing Laboratory Results 01/23/20 07:25 01/23/20 07:25 Urine Color Yellow 01/22/20 12:00 Urine Appearance Clear (Clear) 01/22/20 12:00 Urine pH 5.0 (4.5-7.5) 01/22/20 12:00 Ur Specific [place] 1.016 (1.000-1.030) 01/22/20 12:00 Urine Protein Negative (Negative) 01/22/20 12:00 Urine Glucose (UA) Negative (Negative) 01/22/20 12:00 Urine Ketones Negative (Negative) 01/22/20 12:00 Urine Nitrite Negative (Negative) 01/22/20 12:00 Ur Leukocyte Esterase Negative (Negative) 01/22/20 12:00
[2020-01-23] MEDS ORDERED: INDOMETHACIN 50 MG SUPP PR SCH (13:45)
[2020-01-23] MEDS ORDERED: SUCCINYLCHOLINE CHLORIDE 20 MG/ML 10 ML VIAL IV ONE (14:16)
--- NOTE | 2020-01-23 14:20 | Post Operative Brief Note ---
Immediate Post Op Note v1 Date of Surgery January 23, 2020 Pre & Post Diagnosis Operation Date: 01/23/20 10:40 Pre-Op Diagnosis: Occluded biliary stent Post-Op Diagnosis: Occluded biliary stent, removed I identified the patient and participated in the time-out.: Yes Procedure Operation Date: 01/23/20 10:40 Actual Procedures p Endoscopic Retrograde Cholangiopancreatogram(Not Applicable) - Martinez Alfonso Surgeon Martinez Alfonso Mixer Slagman None Estimated Blood Loss 0 Findings Consistent with Post-Op Diagnosis
--- NOTE | 2020-01-23 14:34 | Fluoroscopy Report ---
[place] ERCP biliary ductal CLINICAL HISTORY: Possible common bile duct calculi COMPARISON STUDY: ERCP dated 01/03/2020 FLUOROSCOPY TIME: 44 seconds. NUMBER OF FLUOROSCOPIC IMAGES: 11 FINDINGS: 11 fluoroscopic spot images were obtained during ERCP. The common bile duct was cannulated and retrograde fashion and contrast was instilled. There are surgical clips from a prior cholecystect chichi. There is no contrast extravasation. A balloon catheter was swept through the duct. IMPRESSION: Fluoroscopic spot images obtained during ERCP. ACT 112: Negative or not required by law. Electronically signed by: Julio Pedroza M.D. 01/23/2020 2:32 PM
--- NOTE | 2020-01-23 15:14 | Anesthesiology Progress Note ---
Date of Service January 23, 2020 Anesthesia Post Procedure Vital Signs Vital Signs: Temp Pulse Pulse Pulse Resp BP BP 01/23/20 15:10 37.1 C 54 L 14 01/23/20 15:00 62 21 01/23/20 14:50 56 L 13 01/23/20 14:40 62 18 01/23/20 14:31 37.1 C 80 17 01/23/20 13:00 36.9 C 76 20 01/23/20 07:17 36.7 C 58 L 18 01/22/20 23:35 36.9 C 54 L 16 01/22/20 20:46 36.8 C 58 L 16 01/22/20 15:50 36.9 C 76 16 93/64 L 01/22/20 15:42 60 18 100/54 L BP Pulse Ox 01/23/20 15:10 105/49 L 96 01/23/20 15:00 99/50 L 96 01/23/20 14:50 111/72 97 01/23/20 14:40 109/60 100 01/23/20 14:31 106/63 100 01/23/20 13:00 118/55 L 98 01/23/20 07:17 86/52 L 95 01/22/20 23:35 90/51 L 95 01/22/20 20:46 93/56 L 96 01/22/20 15:50 91 01/22/20 15:42 98 Pain Intensity Abdomen: Pain Intensity: 3 Transfer of Care Handoff Completed per policy Notes Mental Status: alert / awake / arousable and participated in evaluation Patient Amnestic to Procedure: Yes Nausea / Vomiting: adequately controlled Pain: adequately controlled Airway Patency, RR, SpO2: stable & adequate BP & HR: stable & adequate Hydration State: stable & adequate Anesthetic Complications: no major complications apparent and Pt Satisfied with anesthetic care
--- NOTE | 2020-01-23 15:32 | Electrocardiogram Report ---
Test Reason : Blood Pressure : / mmHG Vent. Rate : 060 BPM Atrial Rate : 060 BPM P-R Int : 132 ms QRS Dur : 092 ms QT Int : 422 ms P-R-T Axes : 078 084 076 degrees QTc Int : 422 ms Normal sinus rhythm Normal ECG No previous ECGs available Confirmed by Alexi Bruno ([id number]) on 01/23/2020 3:32:15 PM Referred By: REFERRED SELF Confirmed By:Alexi Bruno
--- NOTE | 2020-01-23 15:49 | Communication Note ---
Date of Service: January 23, 2020 The patient underwent ERCP this afternoon. She did have partial occlusion of an existing biliary stent. There appeared to be no evidence of a biliary stricture nor stone in the duct. She did have a small amount of sludge removed during the ERCP today. I elected to leave the patient without a biliary stent as I wonder if this is what was causing her flank discomfort. Recommendations Clear liquid diet today Antibiotic coverage for 7 days Please call with any questions or concerns
--- NOTE | 2020-01-23 15:55 | GI REPORT ---
Patient Name: Rupa Neumann Procedure Date: 01/23/2020 2:06 PM Date of : 1980 Admit Type: Inpatient Age: 39 Gender: Female Attending MD: Martinez Alfonso DO Procedure: ERCP Providers: Martinez Alfonso DO Referring MD: Jairo Wiggins Md, Laine Javed MD, Mei Mei Md Indications: Abdominal pain of suspected biliary origin, Stent removal Medicines: General Anesthesia Complications: No immediate complications. Estimated blood loss: Minimal. Estimated Blood Loss: Estimated blood loss was minimal. Procedure: Pre-Anesthesia Assessment: - Prior to the procedure, a History and Physical was performed, and patient medications, allergies and sensitivities were reviewed. The patient's tolerance of previous anesthesia was reviewed. - The risks and benefits of the procedure and the sedation options and risks were discussed with the patient. All questions were answered and informed consent was obtained. - Patient identification and proposed procedure were verified prior to the procedure by the physician, the nurse and the extrusion former. The procedure was verified in the procedure room. - Pre-procedure physical examination revealed no contraindications to sedation. - ASA Grade Assessment: II - A patient with mild systemic disease. - After reviewing the risks and benefits, the patient was deemed in satisfactory condition to undergo the procedure. - The anesthesia plan was to use general anesthesia. - Immediately prior to administration of medications, the patient was re-assessed for adequacy to receive sedatives. - The heart rate, respiratory rate, oxygen saturations, blood pressure, adequacy of pulmonary ventilation, and response to care were monitored throughout the procedure. - The physical status of the patient was re-assessed after the procedure. After obtaining informed consent, the scope was passed under direct vision. Throughout the procedure, the patient's blood pressure, pulse, and oxygen saturations were monitored continuously. The Scope was introduced through the mouth, and advanced to the duodenum and used to cannulate the bile duct. The ERCP was accomplished without difficulty. The patient tolerated the procedure well. Findings: A wood machine carver film of the abdomen was obtained. Surgical clips, consistent with a previous cholecystectomy, were seen in the area of the right upper quadrant of the abdomen. A biliary stent was visible on the wood machine carver film. The esophagus was successfully intubated under direct vision without detailed examination of the pharynx, larynx, and associated structures, and upper GI tract. The upper GI tract was grossly normal. A biliary sphincterotomy had been performed. The sphincterotomy appeared open. One biliary stent originating in the biliary tree was emerging from the major papilla. The stent was partially occluded. One stent was removed from the biliary tree using a snare. The bile duct was deeply cannulated with the short-nosed traction sphincterotome and 0.035 in Acrobat 2 guidewire. Contrast was injected. I personally interpreted the bile duct images. Contrast extended to the entire biliary tree. The middle third of the main bile duct contained filling defect(s) thought to be sludge. To discover objects, the biliary tree was swept with an 8.5 mm to 15 mm balloon starting at the bifurcation. Sludge was swept from the duct, nothing remained on occlusion cholangiogram. The endoscope was withdrawn from the patient. Indomethacin 100 mg was given via suppository to decrease the risk of post-ERCP pancreatitis (PEP). Impression: - Prior biliary sphincterotomy appeared open. - One partially occluded stent from the biliary tree was seen in the major papilla. - The examination was suspicious for sludge. - One stent was removed from the biliary tree. - The biliary tree was swept and sludge was found. - Indomethacin given to decrease risk of post-ERCP pancreatitis. Recommendation: - [facility] care. - Clear liquid diet today. - Use broad spectrum antibiotics for 7 days. - Observe patient's clinical course following today's ERCP with therapeutic intervention. Martinez Alfonso D.O. Martinez Alfonso, 01/23/2020 3:55:19 PM This report has been signed electronically. Note Initiated On: 01/23/2020 2:06 PM Number of Addenda: 0 I attest to the content of the Intraoperative Record and orders documented therein, exceptions below {[id number]}
[2020-01-23] MEDS ORDERED: CHECK SCOPOLAMINE PATCH PLACEMENT SCH (16:00)
[2020-01-23] MEDS: TRAMADOL HCL 50 MG TABLET PO PRN (21:08)
[2020-01-24] MEDS: PIPERACILLIN/TAZOBACTAM 3.375 GM in DEXTROSE 5% 100 ML IV SCH ×3 (01:53→19:07)
--- NOTE | 2020-01-24 08:56 | Surgery Progress Note ---
Date of Service January 24, 2020 Assessment & Plan (1) Back pain: POD 1 ERCP, stent removal no acute surgical issues may take several weeks for pain along rib margin to resolve seen with Dr. Laird advance diet as li f/u Dr. Wadsworth Subjective some abdominal pain, back pain overall improved, tolerating clears Physical Exam Gastrointestinal (Abdomen): Inspection/Auscultation: + abdominal surgical incision (tender at upper incision along rib margin); abdomen not distended Percussion/Palpation: abdomen soft Results & Data Vital Signs (Past 12 Hours) Vital Signs Temp Pulse Pulse Resp BP Pulse Ox 01/24/20 07:10 36.7 C 55 L 16 85/47 L 96 01/24/20 04:18 37.0 C 61 14 92/49 L 96 01/24/20 00:41 37.1 C 55 L 14 91/48 L 95 01/23/20 22:27 55 L 115/52 L PG Care Time/CCT Total # of Minutes Spent Total Time Spent with Patient: Total time spent is greater than 50% in coordination of care (as documented) at patient's floor/unit and/or counseling patient: Coding Level of Care Code 44092 Inpt Consult Level 1 Diagnoses Back pain M54.9
--- NOTE | 2020-01-24 09:23 | Gastroenterology Progress Note ---
Date of Service January 24, 2020 Assessment & Plan (1) Abdominal pain: Patient underwent ERCP yesterday without any obvious complications this morning. I would recommend a CBC and CMP to ensure that her liver tests are still within normal limits. With regard to the discomfort perhaps the patient can try Bentyl 10 mg twice daily. If her symptoms persist she may need reevaluation by surgery as she did have a subtotal cholecystectomy performed. Perhaps this is the etiology of her symptoms. Recommendations Labs ordered this morning Advance diet as tolerated Try Bentyl 10 mg twice daily Please call with any questions or concerns Admission and Anticipated Discharge Date Admission Date: January 22, 2020 Subjective I saw and evaluated the patient this morning. She notes that she does feel somewhat improved but has persistent pain in her back. We performed an ERCP yesterday with removal of an existing biliary stent. There was a small amount of sludge within the duct. Cholangiogram was notable for no obvious filling defects. We were unable to cannulate the cystic duct during yesterday's examination. Physical Exam Constitutional: WD/WN, vitals as above Eyes: PERRL, conjunctivae normal, anicteric sclerae Respiratory: normal respiratory effort; no respiratory distress and no labored breathing Gastrointestinal (Abdomen): Inspection/Auscultation: abdomen not distended Percussion/Palpation: + abdomen tender and abdomen soft Mild epigastric tenderness Results & Data ([facility]) Vital Signs (Past 12 Hours) Vital Signs Temp Pulse Pulse Resp BP Pulse Ox 01/24/20 07:10 36.7 C 55 L 16 85/47 L 96 01/24/20 04:18 37.0 C 61 14 92/49 L 96 01/24/20 00:41 37.1 C 55 L 14 91/48 L 95 01/23/20 22:27 55 L 115/52 L
[2020-01-24] MEDS: DICYCLOMINE HCL 10 MG CAP PO SCH ×2 (09:55→20:50)
[2020-01-24 10:18] LABS: Eosinophils # (auto) 0.01 K/uL (0-0.5); Eosinophils % (auto) 0.2 %; Hemoglobin 11.3 g/dL (12.0-16.0); Lymphocytes # (auto) 0.69 K/uL (1.2-3.4); Lymphocytes % (auto) 10.9 %; Mean Corpuscular Hemoglobin 27.8 pg (25-34); Mean Corpuscular Hgb Conc 32.3 g/dL (32-36); Mean Platelet Volume 9.4 fL (7.4-10.4); Monocytes # (auto) 0.23 K/uL (0.11-0.59); Monocytes % (auto) 3.6 %; Neutrophils % (auto) 85.3 %; Platelet Count 276 K/uL (130-400); RDW Coefficient of Variation 14.4 % (11.5-14.5); RDW Standard Deviation 44.8 fL (36.4-46.3); Red Blood Count 4.07 M/uL (4.2-5.4); White Blood Count 6.33 K/uL (4.8-10.8)
[2020-01-24 10:34] LABS: Albumin Level 3.7 gm/dl (3.4-5.0); BUN Creatinine Ratio 8.8 (10-20); Calcium 9.1 mg/dl (8.5-10.1); Creatinine Clr Calc Pharmacy 43.8 ml/min; Est GFR (African American) 57.7; Est GFR (Non-African American) 49.8; Potassium 3.6 mmol/L (3.5-5.1)
[2020-01-24 10:37] LABS: Albumin Globulin Ratio 1.2 (0.9-2); Bilirubin,Total 2.2 mg/dl (0.2-1); Globulin 3.1 gm/dl (2.5-4.0); Total Protein 6.9 gm/dl (6.4-8.2)
--- NOTE | 2020-01-24 11:16 | Communication Note ---
Date of Service: January 24, 2020 I was able to review the patient's labs from this morning. Her AST and ALT remain within normal limits. The patient does have a slight increase in her bi lirubin however review of her chart shows that it is predominantly indirect. 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 Of note she also has a rise in her creatinine. Perhaps the patient would benefit from increased IV to hydration. I wonder if her symptoms may be related to her incomplete cholecystectomy and will defer this to the surgery service
[2020-01-24] MEDS: SODIUM CHLORIDE 0.9% 1000ML 1,000 ML IV SCH (13:30)
--- NOTE | 2020-01-24 17:42 | Hospitalist Progress Note ---
Date of Service January 24, 2020 Assessment & Plan (1) Cholecystitis: CTAP noted for persistent cholecystitis s/p partial lap kathi with stent placed on 01/01 UA neg Tbili with mild elevation and increased today to 2.2, other LFTs WNL Lipase WNL and pancreas WNL on CTAP, however pt with continued epigastric TTP, possibly early pancreatitis Dr. Wadsworth from surgery consulted - recommends GI management with conservative care. GI consulted took patient for ERCP 01/22 with removal of one stent with sludge - continue abx for 7 days (2) HEBERT (acute kidney injury): Creatinine 1.34 NSS @ 100 for 2 liters Recheck am Hold Toradol (3) Hypokalemia: Resolved Check mag am (4) Back pain: On right side, unclear source, worse when laying flat Patient has had this pain for weeks without relief from ibuprofen or acetaminophen. She has been taking tramadol at night for sleep. She is somewhat frustrated as it wakes her from sleep at night. Will give lidoderm patches for tonight but it's unlikely this is musculoskeletal as two weeks of ibuprofen did not help. Surgery does not feel the pain is related to the gallbladder GI recommends trying Bentyl 10 mg bid Continue Toradol prn (5) DVT prophylaxis: SCDs Admission and Anticipated Discharge Date Admission Date: January 22, 2020 Subjective Ms. Pierre Neumann continues to have some epigastric tenderness and right back pain. ROS Constitutional: no chills, aches, sweats or fever Respiratory: no sob,cough, sputum, or wheezing Cardiac: no chest pain, palpitations, edema, orthopnea or lightheadedness GI: no abdominal pain, nausea, vomiting, diarrhea or constipation : no dysuria or hesitancy Extremities: no joint pain or weakness Skin: no rash All other systems reviewed and negative Physical Exam Physical Exam: General: no distress Eyes: normal inspection, PERLL Respiratory: chest non tender, clear to auscultation, normal breath sounds, no respiratory distress, no accessory muscle use Cardiac: regular rate and rhythm, no rub or gallop, no murmur, no edema, no jvd GI/: active bowel sounds, epigastric tenderness, soft, non distended Extremities: normal range of motion, normal strength, non tender Neuro/Psych: alert and oriented x 3, normal mood and affect Skin: normal color, dry Results & Data Results & Data ([place]) Vital Signs (Past 12 Hours) Vital Signs Temp Pulse Pulse Resp BP Pulse Ox 01/24/20 16:34 37.1 C 50 L 15 96/56 L 98 01/24/20 11:37 37.1 C 57 L 16 83/48 L 97 01/24/20 07:10 36.7 C 55 L 16 85/47 L 96 PG Care Time/CCT Total # of Minutes Spent Total Time Spent with Patient: Total time spent is greater than 50% in coordination of care (as documented) at patient's floor/unit and/or counseling patient: Coding Level of Care Code 99651 Subseq Hosp Care Lvl 3 Diagnoses Cholecystitis K81.9 HEBERT (acute kidney injury) N17.9 Hypokalemia E87.6 Back pain M54.9 DVT prophylaxis Z29.9
[2020-01-24] MEDS ORDERED: TRAMADOL HCL 50 MG TABLET PO PRN (18:10)
[2020-01-24] MEDS: LIDOCAINE 5% 1 PATCH TD SCH (19:05)
[2020-01-24 20:36] LABS: Albumin Level 3.4 gm/dl (3.4-5.0); Bilirubin Direct 0.5 mg/dl (0-0.2); Bilirubin,Total 1.8 mg/dl (0.2-1); Total Protein 6.5 gm/dl (6.4-8.2)
[2020-01-25] MEDS ORDERED: COUGH DROP (SUGAR FREE) LOZ 24 LOZ/1 BOX BUCCAL ONE (00:15)
[2020-01-25] MEDS: PIPERACILLIN/TAZOBACTAM 3.375 GM in DEXTROSE 5% 100 ML IV SCH ×3 (01:02→20:01)
[2020-01-25 06:12] LABS: Hematocrit (blood only) 30.2 % (37-47); Hemoglobin 10.1 g/dL (12.0-16.0); Mean Corpuscular Hemoglobin 28.9 pg (25-34); Mean Corpuscular Hgb Conc 33.4 g/dL (32-36); Mean Corpuscular Volume 86.3 fL (80-100); Mean Platelet Volume 9.7 fL (7.4-10.4); Platelet Count 239 K/uL (130-400); RDW Coefficient of Variation 14.7 % (11.5-14.5); RDW Standard Deviation 45.9 fL (36.4-46.3); White Blood Count 5.52 K/uL (4.8-10.8)
[2020-01-25 06:47] LABS: BUN Creatinine Ratio 11.3 (10-20); Calcium 8.2 mg/dl (8.5-10.1); Creatinine Clr Calc Pharmacy 59.3 ml/min; Est GFR (African American) 83.2; Est GFR (Non-African American) 71.8; Magnesium 1.9 mg/dl (1.8-2.4); Potassium 3.7 mmol/L (3.5-5.1)
[2020-01-25 06:49] LABS: Albumin Globulin Ratio 1.1 (0.9-2); Bilirubin,Total 1.9 mg/dl (0.2-1); Globulin 2.7 gm/dl (2.5-4.0); Total Protein 5.7 gm/dl (6.4-8.2)
[2020-01-25] MEDS: SODIUM CHLORIDE 0.9% 1000ML 1,000 ML IV SCH ×3 (06:53→16:37)
--- NOTE | 2020-01-25 08:19 | Gastroenterology Progress Note ---
Date of Service January 25, 2020 Assessment & Plan (1) Abdominal pain: Patient with persistent abdominal discomfort, I wonder if this is postsurgical in nature. Of note she does have a gallbladder remnant which is fairly large and still has inflammatory changes around it. Perhaps this is the cause of her persistent symptoms. I did have a long discussion with the patient would suggest a few weeks of recovery and if symptoms are persisting perhaps she should be seen at a tertiary center with specialties in biliary surgery to remove the remainder of her gallbladder. At the present time there does not appear to be any evidence of biliary obstruction as her liver associated enzymes are normal. Of note her bilirubin is slightly elevated however it is predominantly indirect. Recommendations Continue Bentyl twice daily Please call with any questions or concerns Admission and Anticipated Discharge Date Admission Date: January 22, 2020 Subjective The patient notes that she has persistent right-sided abdominal discomfort that is slightly improved with use of Bentyl. She did develop renal insufficiency yesterday and was given about 2 L of saline. Review of Systems Constitutional: no sweats and no malaise Eyes: no diplopia Respiratory: no change in sputum and no hemoptysis Cardiovascular: no chest pain with activity Physical Exam Constitutional: WD/WN, vitals as above Respiratory: normal respiratory effort; no respiratory distress Gastrointestinal (Abdomen): Inspection/Auscultation: normal bowel sounds; abdomen not distended Percussion/Palpation: + abdomen tender (Tender over the right upper quadrant and the site of her recent surgical procedure) Results & Data ([facility]) Vital Signs (Past 12 Hours) Vital Signs Temp Pulse Resp BP Pulse Ox 01/24/20 23:08 37.2 C 56 L 14 111/63 97 Laboratory Results Laboratory Results - last 24 hr 01/24/20 01/24/20 01/24/20 10:00 10:00 20:07 WBC 6.33 RBC 4.07 L Hgb 11.3 L Hct 35.0 L MCV 86.0 MCH 27.8 MCHC 32.3 RDW Std Deviation 44.8 RDW Coeff of José 14.4 Plt Count 276 MPV 9.4 Immature Gran % (Auto) 0.0 Neut % (Auto) 85.3 Lymph % (Auto) 10.9 [place] % (Auto) 3.6 Eos % (Auto) 0.2 Baso % (Auto) 0.0 Neut # (Auto) 5.40 Lymph # (Auto) 0.69 L [place] # (Auto) 0.23 Eos # (Auto) 0.01 Baso # (Auto) 0.00 Immature Gran # (Auto) 0.00 Sodium 142 Potassium 3.6 Chloride 109 H Carbon Dioxide 23 Anion Gap 10.0 BUN 12 Creatinine 1.34 H D Est Cr Clr Drug Dosing 43.8 Est GFR ( Amer) 57.7 Est GFR (Non-Af Amer) 49.8 BUN/Creatinine Ratio 8.8 L Glucose 168 H Calcium 9.1 Magnesium Total Bilirubin 2.2 H 1.8 H Direct Bilirubin 0.5 H AST 11 L 10 L ALT 25 22 Alkaline Phosphatase 67 63 Total Protein 6.9 6.5 Albumin 3.7 3.4 Globulin 3.1 Albumin/Globulin Ratio 1.2 01/25/20 01/25/20 01/25/20 05:02 05:02 05:02 WBC 5.52 RBC 3.50 L Hgb 10.1 L Hct 30.2 L MCV 86.3 MCH 28.9 MCHC 33.4 RDW Std Deviation 45.9 RDW Coeff of José 14.7 H Plt Count 239 MPV 9.7 Immature Gran % (Auto) Neut % (Auto) Lymph % (Auto) [place] % (Auto) Eos % (Auto) Baso % (Auto) Neut # (Auto) Lymph # (Auto) [place] # (Auto) Eos # (Auto) Baso # (Auto) Immature Gran # (Auto) Sodium 144 Potassium 3.7 Chloride 112 H Carbon Dioxide 26 Anion Gap 6.0 BUN 11 Creatinine 0.99 D Est Cr Clr Drug Dosing 59.3 Est GFR ( Amer) 83.2 Est GFR (Non-Af Amer) 71.8 BUN/Creatinine Ratio 11.3 Glucose 82 Calcium 8.2 L Magnesium 1.9 Total Bilirubin 1.9 H Direct Bilirubin 0.4 H AST 12 L ALT 21 Alkaline Phosphatase 53 Total Protein 5.7 L Albumin 3.0 L Globulin 2.7 Albumin/Globulin Ratio 1.[address] SCAN OF THE ABDOMEN AND PELVIS WITH IV CONTRAST CLINICAL HISTORY: Postoperative abdominal pain. COMPARISON STUDY: Abdominal CT dated 01/02/2020. TECHNIQUE: Following the IV administration of 93 cc of Optiray 320, CT scan of the abdomen and pelvis is performed from the lung bases to the proximal femora. Images are reviewed in the axial, sagittal, and coronal planes. IV contrast was administered without complication. A dose lowering technique was utilized adhering to the principles of ALARA. CT DOSE: 273.59 mGy.cm FINDINGS: Lung bases: The heart is normal in size and there is trace pericardial fluid. The lung bases are clear. Liver: The contrast-enhanced liver is normal in size, contour, and attenuation. A common bile duct stent is in place. Minimal pneumobilia suggests patency of the stent. There is nonspecific wall thickening or hyperemia identified involv ing the common bile duct and hepatic duct at the hilum. There is minimal central intrahepatic biliary ductal dilatation. The hepatic veins and portal veins are patent. 2 subcentimeter hepatic hypodensities likely represent cysts but are too small for definitive characterization. Gallbladder: Surgical clips are noted in the gallbladder fossa with evidence of partial cholecystectomy. The gallbladder remnant is thick-walled and hyperemic with surrounding inflammatory change. The appearance is consistent with persistent cholecystitis. There is no evidence of surrounding abscess. Spleen: Normal in size and attenuation. Pancreas: Unremarkable. Adrenal glands: Unremarkable. Kidneys: The contrast enhanced kidneys are normal in size and without hydronephrosis. The kidneys enhance symmetrically. Scattered subcentimeter cortical hypodensities likely represent cysts but are too small for definitive characterization. Abdominal vasculature: The abdominal aorta is normal in course and caliber. Bowel: There is no bowel obstruction. The appendix is well-visualized and normal. Peritoneum: There is no intraperitoneal free air or abdominal ascites. There is a small fat-containing umbilical hernia. Postoperative change is noted superior to the umbilicus. Lymphadenopathy: None. Pelvic viscera: The bladder, uterus, and adnexa are normal as imaged. There are bilateral ovarian follicles. An involuting follicle is noted on the left. A small volume of free fluid is seen in the cul-de-sac. Skeletal structures: No lytic or blastic lesions are seen. IMPRESSION: 1. Postoperative change is consistent with partial cholecystectomy. 2. There is evidence of persistent cholecystitis involving the gallbladder remnant. 3. There is no organized fluid collection to indicate abscess. 4. A common bile duct stent is in place. Pneumobilia suggests patency of the stent. 5. There is nonspecific wall thickening and hyperemia involving the common bile duct and the hepatic ducts at the hilum. This may be related to the presence of an indwelling stent. Superimposed cholangitis would be impossible exclude and clinical correlation will be essential.
--- NOTE | 2020-01-25 09:32 | Surgery Progress Note ---
Date of Service January 25, 2020 Assessment & Plan (1) Back pain: POD#2 ERCP and stent removal back pain improved, has some abdominal pain likely post surgical in nature okay to advance diet as tolerates appreciate GI and medicine assistance with pt she will need follow up with Dr. Wadsworth upon discharge pt seen and examined with Dr. Laird Subjective Patient reports her back pain is improved, however today she has more abdominal pain. Otherwise she is tolerating a clear liquid diet. Physical Exam Physical Exam: awake/alert Gastrointestinal (Abdomen): Inspection/Auscultation: + abdominal surgical incision (c/d/i with dermabond overtop) Percussion/Palpation: + abdomen tender (ttp primarily epigastric region) and abdomen soft Results & Data Vital Signs (Past 12 Hours) Vital Signs Temp Pulse Resp BP Pulse Ox 01/24/20 23:08 37.2 C 56 L 14 111/63 97 PG Care Time/CCT Total # of Minutes Spent Total Time Spent with Patient: Total time spent is greater than 50% in coordination of care (as documented) at patient's floor/unit and/or counseling patient: Coding Level of Care Code 36516 Subseq Hosp Care Lvl 1 Diagnoses Back pain M54.9
[2020-01-25] MEDS: DICYCLOMINE HCL 10 MG CAP PO SCH ×2 (09:56→20:01)
[2020-01-25] MEDS: LIDOCAINE 5% 1 PATCH TD SCH (09:57)
--- NOTE | 2020-01-25 12:29 | Hospitalist Progress Note ---
Date of Service January 25, 2020 Assessment & Plan (1) Cholecystitis: CTAP noted for persistent cholecystitis s/p partial lap kathi with stent placed on 01/01 UA neg Tbili with mild elevation 1.8, other LFTs WNL Lipase WNL again today and pancreas WNL on initital CTAP, however pt with continued epigastric TTP Dr. Wadsworth from surgery consulted - recommends GI management with conservative care. GI consulted took patient for ERCP 01/22 with removal of one stent with sludge - continue abx for 7 days. Will order MRCP May need to consider tertiary care if patient is not improving given her ongoing discomfort and pain. Her gallbladder remnant did have some evidence of inflammation on her CT (2) HEBERT (acute kidney injury): Resolved Hold Toradol (3) Hypokalemia: Resolved Magnesium wnl (4) Back pain: On right side, unclear source, worse when laying flat Patient has had this pain for weeks without relief from ibuprofen or acetaminophen. She has been taking tramadol at night for sleep. She is somewhat frustrated as it wakes her from sleep at night. Will give lidoderm patches for tonight but it's unlikely this is musculoskeletal as two weeks of ibuprofen did not help. Surgery does not feel the pain is related to the gallbladder GI recommends trying Bentyl 10 mg bid Pain improved today with lidoderm patches overnight plus (5) DVT prophylaxis: SCDs Admission and Anticipated Discharge Date Admission Date: January 22, 2020 Subjective Ms. Pierre Neumann's back pain was better over the night but she is very frustrated with her slow progress. She is having worsening abdominal pain today with nausea but no vomiting. ROS Constitutional: no chills, aches, sweats or fever Respiratory: no sob,cough, sputum, or wheezing Cardiac: no chest pain, palpitations, edema, orthopnea or lightheadedness GI: no abdominal pain, nausea, vomiting, diarrhea or constipation : no dysuria or hesitancy Extremities: no joint pain or weakness Skin: no rash All other systems reviewed and negative Physical Exam Physical Exam: General: no distress Eyes: normal inspection, PERLL Respiratory: chest non tender, clear to auscultation, normal breath sounds, no respiratory distress, no accessory muscle use Cardiac: regular rate and rhythm, no rub or gallop, no murmur, no edema, no jvd GI/: active bowel sounds, no abd pain or tenderness, soft, non distended Extremities: normal range of motion, normal strength, non tender Neuro/Psych: alert and oriented x 3, normal mood and affect Skin: normal color, dry PG Care Time/CCT Total # of Minutes Spent Total Time Spent with Patient: Total time spent is greater than 50% in coordination of care (as documented) at patient's floor/unit and/or counseling patient: Coding Level of Care Code 33218 Subseq Hosp Care Lvl 2 Diagnoses Cholecystitis K81.9 HEBERT (acute kidney injury) N17.9 Hypokalemia E87.6 Back pain M54.9 DVT prophylaxis Z29.9
--- NOTE | 2020-01-25 19:11 | Ultrasound Report ---
ABDOMINAL ULTRASOUND, RIGHT UPPER QUADRANT HISTORY: epigastric pain. COMPARISON: Abdomen and pelvis CT 01/22/2020. Abdominal ultrasound 01/02/2020. FINDINGS: Pancreas: The pancreas demonstrates a normal echotexture. Liver: Unremarkable. Gallbladder: Status post partial cholecystectomy. The gallbladder remnant demonstrates a thickened wa ll measuring up to 4 mm. No definite gallstones. Negative sonographic [place] sign. There appears to b e a small amount of pneumobilia within the gallbladder remnant. CBD: 6 mm in diameter. Mild thickening of the common bile duct wall. Right kidney: No hydronephrosis. IMPRESSION: 1. Status post partial cholecystectomy. The gallbladder remnant demonstrates a thickened wall. Howeve r, no definite gallstones. The technologist reported a negative sonographic [place] sign. There is ama dence for a small amount of pneumobilia within the gallbladder. Clinical correlation recommended to a ssess for residual cholecystitis. 2. Mildly thickened common bile duct wall. This could be due to the postoperative status or an ascend ing cholangitis. ACT 112: Negative or not required by law. Electronically signed by: Moreno Bolden M.D. 01/25/2020 7:10 PM
[2020-01-26] MEDS: PIPERACILLIN/TAZOBACTAM 3.375 GM in DEXTROSE 5% 100 ML IV SCH ×2 (01:47→10:43)
[2020-01-26] MEDS: SODIUM CHLORIDE 0.9% 1000ML 1,000 ML IV SCH (04:57)
[2020-01-26 07:45] LABS: Creatinine Clr Calc Pharmacy 73.3 ml/min; Est GFR (African American) 107.6; Est GFR (Non-African American) 92.9
[2020-01-26] MEDS: DICYCLOMINE HCL 10 MG CAP PO SCH (10:41)
[2020-01-26] MEDS: LIDOCAINE 5% 1 PATCH TD SCH (10:41)
--- NOTE | 2020-01-26 10:51 | Magnetic Resonance Report ---
MR MRCP HISTORY: epigastric pain, post stent TECHNIQUE: MRCP of the abdomen was performed according to standard department protocol without the us e of intravenous contrast. COMPARISON STUDY: Abdomen and pelvis CT 01/22/2020. FINDINGS: The lung bases are clear. The liver, spleen, adrenal glands, pancreas, left kidney are unre markable. There are again noted postoperative changes consistent with a partial cholecystectomy. Hypo intense foci along the periphery of the gallbladder remnant likely represents surgical clips. Small a mount of pericholecystic fluid and mild gallbladder wall thickening. The common bile duct is obscured . 5 mm T2 hyperintense lesion within the upper pole the right kidney likely representing a cyst. Ther e is also a 5 mm T2 hypointense lesion within the interpolar region of the right kidney posteriorly. IMPRESSION: 1. Postoperative changes consistent with a partial cholecystectomy. The gallbladder remnant demonstra serafin a slightly thickened wall and a small amount pericholecystic fluid. This is nonspecific and could be due to the recent postoperative change or residual acute cholecystitis. 2. The common bile duct is obscured and not well visualized. No definite intrahepatic bile duct dilat ation. 3. A 5 mm T2 hypointense lesion within the interpolar region of the right kidney. This likely represe nts a small angiomyolipoma. ACT 112: Negative or not required by law. Electronically signed by: Moreno Bolden M.D. 01/26/2020 10:50 AM
--- NOTE | 2020-01-26 13:37 | Surgery Progress Note ---
Date of Service pt is doing better after ERCP, pt still have mild RUQ pain, pt denies fever, no vomiting, she tolerated diet, MRCP today-IMPRESSION: 1. Postoperative changes consistent with a partial cholecystectomy. The gallbladder remnant demonstrates a slightly thickened wall and a small amount pericholecystic fluid. This is nonspecific and could be due to the recent postoperative change or residual acute cholecystitis. 2. The common bile duct is obscured and not well visualized. No definite intrahepatic bile duct dilatation. 3. A 5 mm T2 hypointense lesion within the interpolar region of the right kidney. This likely represents a small angiomyolipoma. U/S study( 01/25/2020)IMPRESSION: 1. Status post partial cholecystectomy. The gallbladder remnant demonstrates a thickened wall. However, no definite gallstones. The technologist reported a negative sonographic [place] sign. There is evidence for a small amount of pneumobilia within the gallbladder. Clinical correlation recommended to assess for residual cholecystitis. 2. Mildly thickened common bile duct wall. This could be due to the postoperative status or an ascending cholangitis. January 26, 2020 Assessment & Plan (1) Back pain: pt is a S/P ERCP, laparoscopic subtotal cholecystectomy for cholangitis, and acute cholecystectomy, POD 19, pt is still have some back pain, IMP: S/P ERCP, laparoscopic subtotal cholecystectomy, back, (T) bili 1.3 no surgical indication now, conservative treatment, consult GI to R/O biliary structure? repeat labs in am, will F/U 01/23/2020 11:28AM D/W GI DR. Alfonso, he will do ERCP today, conservative treatment now, managed care liaison surgeon will cover the weekend, Thanks, 01/26/2020, F/U S/P ERCP, laparoscopic subtotal cholecystectomy doing better, mild RUQ pain, continue treatment, repeat labs in am, if bili is still go up, pt needs transfer to higher level care, pt agrees with [facility] plan, I answered all questions, Supervising Physician Co-Signing Physician Notes I saw and evaluated the patient. She presented with worsening back discomfort. She describes having intermittent pain upper back and lower abdomen over the past few weeks. She describes having a stabbing-like pain in in the right ab odomen since placement of a biliary stent a few weeks ago. Of note it appears that her gallbladder surgery was very complicated as she had a subtotal cholecystectomy performed. Physical exam No obvious distress No icterus today No right upper quadrant tenderness Impression: Patient with intermittent discomfort status post ERCP several weeks ago for cholangitis. Perhaps the patient's discomfort is related to the stent. We will proceed with repeat ERCP today for stent removal and possible revision. I have discussed the risks with the patient to include bleeding, infection, perforation, pancreatitis and need for follow-up studies. Subjective ROS Constitutional: no chills, aches, sweats or fever Respiratory: no sob,cough, sputum, or wheezing Cardiac: no chest pain, palpitations, edema, orthopnea or lightheadedness GI: no abdominal pain, nausea, vomiting, diarrhea or constipation : no dysuria or hesitancy Extremities: no joint pain or weakness Skin: no rash All other systems reviewed and negative Physical Exam Constitutional: WD/WN, vitals as above well developed and well nourished Eyes: PERRL, conjunctivae normal, anicteric sclerae ENMT: external ear and nose normal, oropharynx normal Neck: trachea midline, no thyromegaly Respiratory: normal respiratory effort, lungs clear to auscultation Cardiovascular: RRR, no murmur, no edema Rate/Rhythm: regular rate and regular rhythm Gastrointestinal (Abdomen): normal bowel sounds, soft, nontender, no hepatosplenomegaly mild tenderness at RUQ, no rebound pain, BS +, Musculoskeletal: no cyanosis or clubbing, extremities motor strength 5/5 Skin: no rashes, warm and dry Neurologic: patellar DTR's 2+ bilat, sensation intact Psychiatric: Orientation: alert and oriented x 3 Results & Data Vital Signs (Past 12 Hours) Vital Signs Temp Pulse Resp BP Pulse Ox 01/26/20 07:48 36.8 C 69 16 91/56 L 98 Laboratory Results Abnormal Labs 01/22/20 01/22/20 01/23/20 11:20 11:20 07:25 WBC 4.70 L 3.05 L RBC 4.18 L 4.15 L Hgb 11.6 L Hct 36.5 L 36.4 L MCHC 31.9 L RDW Std Deviation 48.7 H 47.8 H RDW Coeff of José 15.1 H 15.0 H Lymph # (Auto) 1.16 L Potassium 3.1 L Chloride Creatinine BUN/Creatinine Ratio Glucose 59 L Calcium Total Bilirubin 1.3 H Direct Bilirubin AST Total Protein Albumin 01/23/20 01/24/20 01/24/20 07:25 10:00 10:00 WBC RBC 4.07 L Hgb 11.3 L Hct 35.0 L MCHC RDW Std Deviation RDW Coeff of Joés Lymph # (Auto) 0.69 L Potassium Chloride 108 H 109 H Creatinine 1.34 H D BUN/Creatinine Ratio 8.8 L Glucose 168 H Calcium Total Bilirubin 1.9 H 2.2 H Direct Bilirubin 0.5 H AST 11 L Total Protein Albumin 01/24/20 01/25/20 01/25/20 20:07 05:02 05:02 WBC RBC 3.50 L Hgb 10.1 L Hct 30.2 L MCHC RDW Std Deviation RDW Coeff of José 14.7 H Lymph # (Auto) Potassium Chloride 112 H Creatinine BUN/Creatinine Ratio Glucose Calcium 8.2 L Total Bilirubin 1.8 H 1.9 H Direct Bilirubin 0.5 H AST 10 L 12 L Total Protein 5.7 L Albumin 3.0 L 01/25/20 05:02 WBC RBC Hgb Hct MCHC RDW Std Deviation RDW Coeff of José Lymph # (Auto) Potassium Chloride Creatinine BUN/Creatinine Ratio Glucose Calcium Total Bilirubin Direct Bilirubin 0.4 H AST Total Protein Albumin
[2020-01-26] MEDS ORDERED: SACCHAROMYCES BOULARDII 250 MG CAP PO SCH (14:00)
[2020-01-26 14:57] LABS: Albumin Level 3.2 gm/dl (3.4-5.0); Bilirubin Direct 0.3 mg/dl (0-0.2); Bilirubin,Total 1.4 mg/dl (0.2-1)
--- NOTE | 2020-01-26 17:41 | Discharge Summary ---
Date of Service January 26, 2020 Admission HPI Per Admitting Provider 39 y/o F c/o worsening back and abd pain. Pt states she had a cholecystectomy earlier this month (01/01). Her presenting sx leading to dx was back pain. She states that this pain never resolved s/p kathi and has continued to worsening. She cannot sleep at night unless she takes a tramadol. She states that she saw Dr. Wadsworth in f/u and was told this was not related to her surgery and to come to the ED. Pt states that she started to have abd pain "on and off" after her lap kathi. This has continued. Over the last few days, she has developed more sharp pains in the upper abd that do not resolve and get worse if she lies on her side. She has had ongoing nausea without emesis since her surgery. She states that she does not have much nausea during the day and can eat, but becomes nauseated after eating. She has more persistent nausea at night, even if she does not eat. Pt denies fever, SOB, chest pain, c/d, LE pain or swelling. Pt has no pain with urination, however she does note that her urine is more yellow a gain, which was the case with her initial presentation. Principal Diagnosis Cholecystitis, Elevated LFTs, ABdominal pain Discharge Exam Constitutional WD/WN, vitals as above Eyes + anicteric sclerae Neck trachea midline, no thyromegaly Respiratory normal respiratory effort, lungs clear to auscultation Cardiovascular RRR, no murmur, no edema Chest (Breasts) Chest: normal inspection of chest Gastrointestinal (Abdomen) Inspection/Auscultation: normal bowel sounds; + abdomen abnormal to inspection (several small healed incisional wounds, no erythema) Percussion/Palpation: + abdomen tender (mild TTP epigastric and RUQ regions) and abdomen soft; no guarding and abdomen not rigid Musculoskeletal Extremities: extremities normal to inspection; no cyanosis and no clubbing Skin no rashes, warm and dry Neurologic moves all extremities and awake; no focal motor deficits Psychiatric A+Ox3, euthymic affect Lymphatic no lymphedema Discharge Data Allergies Allergy/AdvReac Type Severity Reaction Status Date / Time No Known Allergies Allergy Unverified 01/22/20 11:15 Consultations 01/22/20 13:22 ED Decision to Admit Stat 01/22/20 16:12 Consult Gastroenterology Routine 01/22/20 19:21 Consult Gastroenterology Routine 01/23/20 12:25 Consult General Surgery Routine Procedures Performed Operation Date: 01/23/20 10:40 Actual Procedures p Endoscopic Retrograde Cholangiopancreatogram(Not Applicable) - Martinez Alfonso Ordered Studies 01/22/20 10:55 CT abd pelvis IV con only Stat 01/23/20 13:00 FL ERCP biliary ductal Routine 01/25/20 15:34 US gallbladder Routine 01/26/20 09:18 MR MRCP Routine Hospital Course (1) Cholecystitis: Presented with persistent RUQ and epigastric abd pain CT A/P noted for persistent cholecystitis s/p partial lap kathi with stent placed on 01/01 UA neg Tbili with mild elevation 1.8 and then trended downward to 1.4 on day of discharge, other LFTs WNL Lipase WNL and pancreas WNL on initital CTAP, however pt with continued epigastric TTP that was likely from biliary stent Stent removed and back pain resolved Dr. Wadsworth from surgery consulted - recommends GI management with conservative care, treated with IV abx-no concern for true acute cholecystitis, just residual inflammation. GI consulted took patient for ERCP 01/22 with removal of one stent with sludge - continue abx for 7 days total with AUgmentin upon discharge. MRCP with poor visualization of CBD and with some thickening of GB wall Was tolerating low fat diet and doing well, afebrile, no need for continued stay Stable for dc to home with close f/u with SUrgery in 1 week Repeat LFs in 2 days to ensure not worsening again (2) Elevated LFTs: as above improved (3) HEBERT (acute kidney injury): Resolved (4) Hypokalemia: Resolved Magnesium wnl (5) Back pain: resolved after removal of biliary stent and trial of bentyl (6) Abdominal pain: as above now much improved (7) DVT prophylaxis: SCDs Dispo-stable for dc to home Total Time Total Time Spent Total Time Spent (In Minutes): >30 min Total Time Includes: Examination of the Patient, Discharge Planning, Medication Reconciliation and Communication With Other Providers (Dr. Wadsworth) Discharge Plan Discharge Items Patient Disposition: Home - Self-Care Reason For Visit: PERSISTANT CHOLECYSTITIS Discharge Diagnosis: Cholecystitis, Elevated liver enzymes, Abdominal pain Condition on Discharge: Good Activity: As commented below Lifting: No more than 10 pounds Bathing: No limitations Exercise/Sports: Wait until after follow-up appointment Weightbearing: Full weightbearing Non-emergency contact: Primary Care Provider and Surgeon Call non-emergency contact if: you have any medication questions, your symptoms worsen, your pain is not controlled, your pain is worsening, your pain is unusual for you, your pain is concerning for you, you have a fever, your temperature is above 101, your wound has increased redness, your wound has increased drainage and your wound pain has increased Follow-up/Referrals: Mei Mei MD [Primary Care Provider] - (Follow up within 1-2 weeks.) Rogerio Wadsworth MD [Physician] - (Follow up within 1 week. Please call for an appointment. ) Diet: Low Fat Ambulatory Orders: Comprehensive Metabolic Panel (Routine) Timeframe: 2 Days Location: Determined by Patient Ordered By: Brinda Denson Attending Provider Instructions: Please finish out the course of antibiotics for 3 more days. Follow up with Dr. Wadsworth in 1 week. Pending Studies at Discharge: Yes (Final blood culture results) Stand-Alone Forms: [facility] Medications and DC Order Prescriptions: New dicyclomine 10 mg Capsule 10 mg PO BID PRN (Reason: abdominal cramps) Qty: 10 RF: 0 Cholestyramine Light 4 gram Powder In Packet 4 g PO BID@1000,2200 Qty: 14 RF: 0 Saccharomyces boulardii [Florastor] 250 mg Capsule 250 mg PO DAILY Qty: 30 RF: 0 amoxicillin-pot clavulanate [Augmentin] 875-125 mg tablet 1 tab PO BID Qty: 6 RF: 0 Continued tramadol-acetaminophen 37.5-325 mg tablet 1 - 2 tab PO Q6H PRN (Reason: pain) RF: 0 Discharge Orders: Discharge Order (Routine); Ordered 01/26/20 Ordered By: Brinda Angel/Other Patient Handouts: Low-Fat Cooking Tips Admission Data Admit Date/Time: 01/22/20 14:12 Attending Provider: Brinda Xiong Admit Provider: Thi Vang Primary Care Provider: Mei Mei Other Providers: Glen Julien ; Moisés Hurtado ; Thi Vang ; Stephany Langley ; Thi Hernandez ; Philippe Pichardo ; Polina Benson ; Martinez Alfonso ; Scotty Green ; Marli Mead ; Alexi Pearl ; Rohan Ring ; Shannon Roche ; Shaylee Kumari ; Mana Davila ; Hermila Chairez ; Laine Javed ; Rogerio Wadsworth Coding Level of Care Code D/C Day Management >30 mins Diagnoses Cholecystitis K81.9 Elevated LFTs R79.89 HEBERT (acute kidney injury) N17.9 Hypokalemia E87.6 Back pain M54.9 Abdominal pain R10.9 DVT prophylaxis Z29.9
[2020-01-26] MEDS ORDERED: CHOLESTYRAMINE LIGHT 4 GM PKT PO SCH (22:00)
--- NOTE | 2020-02-03 07:00 | Coding Query ---
To promote full compliance with coding requirements relating to patient care, provider participation is requested in all cases of medical records coder uncertainty. Please assist us with the question(s) below: Coding Question(s): The diagnosis(es) below was documented in the Progress Notes through 01/24/20, then subsequently fell off all further documentation. Please indicate if it is still a possible diagnosis or ruled out. Physician's Response(s): POSSIBLE EARLY PANCREATITIS ( ) Diagnosed and POA ( ) Diagnosed and not POA ( x ) Ruled out ( ) Other (please specify) MTDD
== END 2020-01-26 19:11 | disposition home or self-care (01) | DRG 920 ==
LOC: ED 10:21 → 3W 14:12 → SUATTDRO 14:12 → 3W 15:42

== ENCOUNTER 2020-05-24 14:44 | Observation (INO) ==
[2020-05-24] MEDS ORDERED: SODIUM CHLORIDE 0.9% 1000ML 1,000 ML IV SCH (16:45)
[2020-05-24 16:49] LABS: Eosinophils # (auto) 0.02 K/uL (0-0.5); Eosinophils % (auto) 0.2 %; Hematocrit (blood only) 37.7 % (37-47); Hemoglobin 12.5 g/dL (12.0-16.0); Immature Granulocytes # (auto) 0.02 K/uL (0.00-0.02); Immature Granulocytes % (auto) 0.2 %; Lymphocytes # (auto) 0.77 K/uL (1.2-3.4); Lymphocytes % (auto) 6.5 %; Mean Corpuscular Hemoglobin 29.1 pg (25-34); Mean Corpuscular Hgb Conc 33.2 g/dL (32-36); Mean Corpuscular Volume 87.7 fL (80-100); Mean Platelet Volume 9.9 fL (7.4-10.4); Monocytes % (auto) 3.4 %; Neutrophils # (auto) 10.67 K/uL (1.4-6.5); Neutrophils % (auto) 89.7 %; Platelet Count 277 K/uL (130-400); RDW Coefficient of Variation 14.6 % (11.5-14.5); RDW Standard Deviation 46.8 fL (36.4-46.3); White Blood Count 11.88 K/uL (4.8-10.8)
[2020-05-24] MEDS ORDERED: PIPERACILLIN/TAZOBACTAM 4.5 GM/120 ML BAG IV ONE (16:58)
[2020-05-24] MEDS ORDERED: METOCLOPRAMIDE HCL INJ 5 MG/ML 2 ML VIAL IV STA (16:58)
[2020-05-24] MEDS ORDERED: PIPERACILL/TAZOBAC CONSULT ACTIVE PRN (16:58)
[2020-05-24 16:59] LABS: INR 1.1 (0.9-1.1); Partial Thromboplastin Ratio 1.1; Partial Thromboplastin Time 30.1 Seconds (21.0-31.0); Prothrombin Time 11.8 Seconds (9.0-12.0)
[2020-05-24 17:07] LABS: Albumin Level 4.2 gm/dl (3.4-5.0); BUN Creatinine Ratio 14.1 (10-20); Calcium 9.1 mg/dl (8.5-10.1); Creatinine Clr Calc Pharmacy 76.9 ml/min; Est GFR (African American) 116.4; Est GFR (Non-African American) 100.4; Magnesium 2.3 mg/dl (1.8-2.4); Potassium 3.3 mmol/L (3.5-5.1)
[2020-05-24 17:10] LABS: Albumin Globulin Ratio 1.1 (0.9-2); Bilirubin,Total 1.1 mg/dl (0.2-1); Total Protein 8.2 gm/dl (6.4-8.2)
--- NOTE | 2020-05-24 17:21 | XRay Report ---
XR chest 1V portable HISTORY: 39 years-old Female SEPSIS acute sepsis COMPARISON: CT abdomen and pelvis 01/22/2020 TECHNIQUE: Portable AP view of the chest FINDINGS: Cardiomediastinal and hilar silhouettes are within normal limits. No pneumothorax, pleural effusion, airspace consolidation or overt pulmonary edema. Bones of the chest appear grossly intact. IMPRESSION: No acute process. ACT 112: Negative or not required by law. The above report was generated using voice recognition software. It may contain grammatical, syntax o r spelling errors. Electronically signed by: Alonzo Cho M.D. 05/24/2020 5:19 PM
[2020-05-24] MEDS ORDERED: IOVERSOL 100ml IV ONE (18:19)
--- NOTE | 2020-05-24 18:51 | Emergency Department Note ---
Impression & Plan Abdominal pain, Biliary colic ED Provider Note NAME: GRETTA BAH AGE: 39 SEX: F : 1980 ARRIVES VIA: Walk-In INFORMANT: Patient, ED PROVIDER(S): Amador Ashley MD Chief Complaint: Abdominal pain HPI: Patient does present with concern for abdominal pain. The patient states that she has had some persistent issues ever since she had a partial cholecystectomy completed back in December. The patient states that her infection was significant and involve the pancreas to where they could not do a complete cholecystectomy at that time. The patient states that she did have a recent EUS which did show persistent gallstones. Patient states though that today that she has had some worsening nausea along with borderline fever. The patient has not had any vomiting. The patient has passed stools without any blood and no dysuria or hematuria. Patient does take [id number] medication. The pat ient localizes her pain in the right upper quadrant and epigastric area. She does describe it as sharp. It is worse with palpation. Patient denies any recent trauma. Patient states that he she had called her PCP as well as her primary director summer sessions Dr. Srivastava he recommended the patient be evaluated. Patient does have a surgery scheduled to be completed at [facility] by Dr. Rodriguez the following Sunday. ROS: See HPI for pertinent positives and negatives. A total of 10 systems were reviewed and otherwise negative. Past medical history: See below Surgical history: See below Social history: See below Physical Exam: GENERAL: Wearing glasses and a mask. NAD, non-toxic. EYE EXAM: Normal conjunctiva. PERRL, no anisocoria and EOM's grossly intact w/o pain. NECK: Supple, no nuchal rigidity, no adenopathy, non-tender. No signs of meningismus. LUNGS: Clear to auscultation. Normal chest wall mechanics. HEART: NSR, no MRG. ABDOMEN: Abdomen soft, right upper quadrant and epigastric pain without peritonitis, negative [place] sign, normo-active bowel sounds, no masses, no rebo und or guarding. BACK: No CVA TTP. SKIN: No rashes and no bruising. UPPER EXTREMITIES: Upper extremities are grossly normal. LOWER EXTREMITIES: Grossly normal, no edema. NEURO EXAM: A&O x3, cranial nerves II-XII grossly intact, normal speech, moves all 4 extremities on command w/o issue. Differential diagnoses: Appendicitis, ovarian cyst, ovarian torsion, ectopic , TOA, PID, infections, diverticulitis, UTI, obstruction, mesenteric ischemia, aortic pathology, inflammatory bowel disease, renal colic, PUD, pancreatitis, biliary pathology, hernia, volvulus, constipation, as well as ot her pathologies. Course: Patient was seen and evaluated the bedside. Full history physical exam was performed. EKG: Indication: Abdominal pain Normal sinus rhythm, rate of 76, normal intervals, normal axis, incomplete right bundle branch block pattern, T wave inversion in V2. No significant change from January 22, 2020 EKG. Imaging Studies: Radiology results as stated below per my review in the radiologist's interpretation: XR chest 1V portable HISTORY: 39 years-old Female SEPSIS acute sepsis COMPARISON: CT abdomen and pelvis 01/22/2020 TECHNIQUE: Portable AP view of the chest FINDINGS: Cardiomediastinal and hilar silhouettes are within normal limits. No pneumothorax, pleural effusion, airspace consolidation or overt pulmonary edema. Bones of the chest appear grossly intact. IMPRESSION: No acute process. ACT 112: Negative or not required by law. The above report was generated using voice recognition software. It may contain grammatical, syntax or spelling errors. Electronically signed by: Alonzo Cho M.D. 05/24/2020 5:19 PM Dictated: 05/24/201718 Transcribed: 05/24/201718 [address] WITH IV CONTRAST CT DOSE: 247.73 mGy.cm HISTORY: Acute upper abdominal pain with history of partial cholecystectomy. upper ab pain; h/o partial kathi TECHNIQUE: Multiaxial CT images of the abdomen and pelvis were performed following the IV administration of 93 cc of Optiray 320, A dose lowering technique was utilized adhering to the principles of ALARA. COMPARISON STUDY: CT abdomen and pelvis 01/22/2020 FINDINGS: Clear lung bases. No pneumatosis or pneumoperitoneum. Imaged inferior cardiac chambers are unremarkable. Trace pericardial effusion. Spleen measures the upper limits of normal in size. Pancreas and adrenal glands are unremarkable. Postoperative changes of partial cholecystectomy. There is decreased inflammation involving the gallbladder remnant from comparison study. Gallbladder wall measures within the upper limits of normal. Interval removal of the common bile duct stent. Pneumobilia suggest prior sphincterotomy. There is no significant intrahepatic or extrahepatic biliary ductal dilation. Trace perihepatic and giuseppe hepatis ascites. Unremarkable liver. Patency of the hepatic and portal veins. There is no cholelithiasis or choledocholithiasis identified. 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 3 mm nonobstructing calculus of the inferior pole left kidney. No ureteral calculi or obstructive uropathy. Mildly heterogeneous appearance of the uterus. Follicular changes of the ovaries. Aorta and IVC are unremarkable. No adenopathy. No small bowel obstruction. Fluid-filled decompressed rectum and distal colon. The visualized appendix appears unremarkable within the abdominal right lower quadrant. A few nondilated air and fluid-filled loops of small bowel are noted. Unremarkable soft tissues. 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 Bones appear intact. No acute fracture. IMPRESSION: 1. Postoperative changes of partial cholecystectomy with interval removal of the common bile duct stent. The remnant gallbladder demonstrates wall thickening that appears to be in the upper limits of normal. Trace edema within the giuseppe hepatis with trace free fluid tracking along the inferior right hepatic lobe and right pericolic gutter. Correlation with right upper quadrant abdominal ultrasound recommended. 2. No bowel obstruction or pneumoperitoneum. 3. There are a few fluid-filled loops of large and small bowel which are likely physiologic. A mild enteritis/diarrheal illness could appear similarly. 4. No CT evidence of acute appendicitis. ACT 112: Negative or not required by law. The above report was generated using voice recognition software. It may contain grammatical, syntax or spelling errors. Electronically signed by: Alonzo Cho M.D. 05/24/2020 6:50 PM Dictated: 05/24/201841 Transcribed: 05/24/201841 Cardiac monitoring: An order was placed for continuous cardiac monitoring. The monitor shows a rate of 80 with sinus rhythm. MDM: Patient was seen due to concern for abdominal pain and does have a recent history of a partial cholecystectomy. Blood work was obtained along with Prozac procalcitonin. Antibiotics were ordered patient was given IV fluids and antiemetics. Patient declined pain medication. Patient blood work shows a white count of 11.8 with normal H&H and platelet count. Patient's kidney function is unremarkable with very mild hypokalemia 3.3. Bilirubin at 1.1. Procalcitonin is not elevated lipase is normal. The patient's lactate is not elevated. Chest x-ray is negative. CT does show some mild wall thickening and free fluid. Patient was ordered some IV Ofirmev as the patient wanted Tylenol for pain. Given the possibility of a procedure, IV medication was ordered. Patient was ordered right upper quadrant ultrasound. Stone does show cholelithiasis and the remnant as long as borderline wall thickness and pericholecystic fluid. Given the patient's borderline features including borderline temperature, white blood cell count, pain, fluid and gallbladder wall thickness of 3 mm I did speak with the on-call general surgeon Dr. Wadsworth. He recommended medical admission with GI and surgery consults as this patient has been seen by Dr. Wadsworth and GI in the past. Patient was admitted to the medicine service by Dr. Houston. Past Med/Surg History Medical History Anemia Cholangitis Choledocholithiasis Surgical History History of section History of knee surgery S/P cholecystectomy 12/05/19 Dr. Paulo Boykin S/P ERCP 01/23/20 Dr. Martinez Alfonso Family History Father Hyperlipidemia Cardiac disorder Hypertension Kidney stone Glaucoma Mother Hyperlipidemia Hypothyroidism Grandmother Diabetes Stomach cancer Unknown Cardiac disorder Hypertension Kidney stone Denies family history of Ovarian cancer Prostate cancer Myocardial infarction Breast cancer Colorectal cancer Social History Smoking Status: Never smoker Second Hand Exposure: No; Hx Alcohol Use: No Hx Substance Use: No Preferred Language: [place]ese Communication Ability: Effective Visual Impairment: No Limitations Hearing Ability: Normal Gold Marker Required: No Beliefs That Will Affect Care: None marital status: Current Living Situation: Family current occupational status: employed 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 Other Information That Helps Us Care for You: No Feels Safe at Home: Yes Safety Concerns: Feels Safe At This Time Childhood Exposure to Second-Hand Smoke: No Dental Care, Regularly: No Physical Activity Frequency: Does not Exercise Seatbelt Use: always Sunscreen Use: Yes Assistive Devices: None Allergies Allergies Allergy/AdvReac Type Severity Reaction Status Date / Time No Known Allergies Allergy Unverified 04/23/20 14:39 Home Meds Previous Rx's Medication Instructions Recorded tramadol 37.5 mg-acetaminophen 325 1 - 2 tab PO Q6H PRN #10 tab 01/28/20 mg tablet hydroxyzine pamoate 25 mg capsule 25 mg PO HS PRN #30 cap 04/25/20 Results & Data (ED) Vital Signs Vital Signs - 24 hr 05/24/20 15:10 05/24/20 17:00 05/24/20 17:14 Temperature 37.6 C H Temperature Source Oral Pulse Rate 105 H 80 Pulse Rate from SpO2 Sensor 81 Respiratory Rate 16 20 Respiratory Effort / Characteristics Non-Labored Spontaneous Respiratory Depth Normal Blood Pressure 112/64 102/66 Blood Pressure Mean 80 74 Blood Pressure Position Sitting Pulse Oximetry 97 100 100 Oxygen Delivery Method Room Air Room Air Sepsis Recent Fever Within 48 Hours No Sepsis New/Unexplained Change in Mental Status N/A Sepsis Action Taken by Nursing No Action Required 05/24/20 17:30 05/24/20 18:30 05/24/20 19:04 Temperature Temperature Source Pulse Rate 73 69 71 Pulse Rate from SpO2 Sensor 73 69 71 Respiratory Rate 20 15 20 Respiratory Effort / Characteristics Respiratory Depth Blood Pressure 109/54 L 95/63 L 104/60 Blood Pressure Mean 70 73 73 Blood Pressure Position Pulse Oximetry 100 100 100 Oxygen Delivery Method Sepsis Recent Fever Within 48 Hours Sepsis New/Unexplained Change in Mental Status Sepsis Action Taken by Nursing 05/24/20 21:30 05/24/20 21:38 05/24/20 22:00 Temperature Temperature Source Pulse Rate 61 69 54 L Pulse Rate from SpO2 Sensor 58 L 68 54 L Respiratory Rate 16 22 15 Respiratory Effort / Characteristics Respiratory Depth Blood Pressure 96/45 L 88/45 L Blood Pressure Mean 60 55 Blood Pressure Position Pulse Oximetry 96 97 96 Oxygen Delivery Method Sepsis Recent Fever Within 48 Hours Sepsis New/Unexplained Change in Mental Status Sepsis Action Taken by [facility] Medications Current Medication List: was personally reviewed by me Laboratory Data Attestation: I reviewed the patient's lab results. Result diagrams: 05/25/20 08:20 05/25/20 08:20 Lab Results 05/24/20 05/24/20 05/24/20 Range/Units 16:30 16:30 16:30 WBC 11.88 H (4.8-10.8) K/uL RBC 4.30 (4.2-5.4) M/uL Hgb 12.5 (12.0-16.0) g/dL Hct 37.7 (37-47) % MCV 87.7 (80-100) fL MCH 29.1 (25-34) pg MCHC 33.2 (32-36) g/dL RDW Std Deviation 46.8 H (36.4-46.3) fL RDW Coeff of José 14.6 H (11.5-14.5) % Plt Count 277 (130-400) K/uL MPV 9.9 (7.4-10.4) fL Immature Gran % (Auto) 0.2 % Neut % (Auto) 89.7 % Lymph % (Auto) 6.5 % [place] % (Auto) 3.4 % Eos % (Auto) 0.2 % Baso % (Auto) 0.0 % Neut # (Auto) 10.67 H (1.4-6.5) K/uL Lymph # (Auto) 0.77 L (1.2-3.4) K/uL [place] # (Auto) 0.40 (0.11-0.59) K/uL Eos # (Auto) 0.02 (0-0.5) K/uL Baso # (Auto) 0.00 (0-0.2) K/uL Immature Gran # (Auto) 0.02 (0.00-0.02) K/uL PT (9.0-12.0) Seconds INR (0.9-1.1) APTT (21.0-31.0) Seconds PTT Ratio Sodium 141 (136-145) mmol/L Potassium 3.3 L (3.5-5.1) mmol/L Chloride 106 (98-107) mmol/L Carbon Dioxide 31 (21-32) mmol/L Anion Gap 4.0 (3-11) BUN 11 (7-18) mg/dl Creatinine 0.75 (0.6-1.2) mg/dl Est Cr Clr Drug Dosing 76.9 ml/min Est GFR ( Amer) 116.4 Est GFR (Non-Af Amer) 100.4 BUN/Creatinine Ratio 14.1 (10-20) Glucose 113 H (70-99) mg/dl Lactate (0.4-2.0) mmol/L Calcium 9.1 (8.5-10.1) mg/dl Magnesium 2.3 (1.8-2.4) mg/dl Total Bilirubin 1.1 H (0.2-1) mg/dl AST 10 L (15-37) U/L ALT 20 (12-78) U/L Alkaline Phosphatase 76 (45-117) U/L Total Protein 8.2 (6.4-8.2) gm/dl Albumin 4.2 (3.4-5.0) gm/dl Globulin 4.0 (2.5-4.0) gm/dl Albumin/Globulin Ratio 1.1 (0.9-2) Lipase 72 L (73-393) U/L Procalcitonin < 0.05 (0-0.5) ng/ml Urine Color Urine Appearance (Clear) Urine pH (4.5-7.5) Ur Specific [place] (1.000-1.030) Urine Protein (Negative) Urine Glucose (UA) (Negative) Urine Ketones (Negative) Urine Blood (Negative) Urine Nitrite (Negative) Urine Bilirubin (Negative) Urine Urobilinogen (Negative) Ur Leukocyte Esterase (Negative) 05/24/20 05/24/20 05/24/20 Range/Units 16:30 17:55 19:06 WBC (4.8-10.8) K/uL RBC (4.2-5.4) M/uL Hgb (12.0-16.0) g/dL Hct (37-47) % MCV (80-100) fL MCH (25-34) pg MCHC (32-36) g/dL RDW Std Deviation (36.4-46.3) fL RDW Coeff of José (11.5-14.5) % Plt Count (130-400) K/uL MPV (7.4-10.4) fL Immature Gran % (Auto) % Neut % (Auto) % Lymph % (Auto) % [place] % (Auto) % Eos % (Auto) % Baso % (Auto) % Neut # (Auto) (1.4-6.5) K/uL Lymph # (Auto) (1.2-3.4) K/uL [place] # (Auto) (0.11-0.59) K/uL Eos # (Auto) (0-0.5) K/uL Baso # (Auto) (0-0.2) K/uL Immature Gran # (Auto) (0.00-0.02) K/uL PT 11.8 (9.0-12.0) Seconds INR 1.1 (0.9-1.1) APTT 30.1 (21.0-31.0) Seconds PTT Ratio 1.1 Sodium (136-145) mmol/L Potassium (3.5-5.1) mmol/L Chloride (98-107) mmol/L Carbon Dioxide (21-32) mmol/L Anion Gap (3-11) BUN (7-18) mg/dl Creatinine (0.6-1.2) mg/dl Est Cr Clr Drug Dosing ml/min Est GFR ( Amer) Est GFR (Non-Af Amer) BUN/Creatinine Ratio (10-20) Glucose (70-99) mg/dl Lactate 0.7 (0.4-2.0) mmol/L Calcium (8.5-10.1) mg/dl Magnesium (1.8-2.4) mg/dl Total Bilirubin (0.2-1) mg/dl AST (15-37) U/L ALT (12-78) U/L Alkaline Phosphatase (45-117) U/L Total Protein (6.4-8.2) gm/dl Albumin (3.4-5.0) gm/dl Globulin (2.5-4.0) gm/dl Albumin/Globulin Ratio (0.9-2) Lipase (73-393) U/L Procalcitonin (0-0.5) ng/ml Urine Color Yellow Urine Appearance Clear (Clear) Urine pH 7.5 (4.5-7.5) Ur Specific [place] > 1.045 H (1.000-1.030) Urine Protein Negative (Negative) Urine Glucose (UA) Negative (Negative) Urine Ketones Negative (Negative) Urine Blood Negative (Negative) Urine Nitrite Negative (Negative) Urine Bilirubin Negative (Negative) Urine Urobilinogen Negative (Negative) Ur Leukocyte Esterase Negative (Negative) Administered Medications Potassium Chloride/Sodium Chloride (Normal Saline W/20 Meq Kcl) 20 meq in 1,000 mls @ 100 mls/hr IV .Q10H [facility] Stop: 05/25/20 20:44 Last Admin: 05/25/20 11:20 Dose: 100 mls/hr Documented by: [id number] Infusion: 05/25/20 11:18 Dose: 0 mls/hr Documented by: [id number] Infusion: 05/25/20 04:50 Dose: 100 mls/hr Documented by: [id number] Admin: 05/25/20 01:01 Dose: 100 mls/hr Documented by: [id number] Piperacillin Sod/Tazobactam (Sod 3.375 gm/ Dextrose) 115 mls @ 28.75 mls/hr IV Q8H CARLOS; Protocol Stop: 06/04/20 00:59 Last Admin: 05/25/20 09:16 Dose: 28.8 mls/hr Documented by: [id number] Infusion: 05/25/20 04:50 Dose: 0 mls/hr Documented by: [id number] Admin: 05/25/20 01:01 Dose: 28.8 mls/hr Documented by: [id number] Discontinued Medications Sodium Chloride (Nss 1000ml) 1,000 mls @ 999 mls/hr IV .Q1H1M CARLOS Stop: 05/24/20 17:45 Last Infusion: 05/24/20 19:30 Dose: 0 mls/hr Documented by: [id number] Admin: 05/24/20 18:28 Dose: 999 mls/hr Documented by: [id number] Piperacillin Sod/Tazobactam Sod (Zosyn) 4.5 gm in 120 mls @ 240 mls/hr IV NOW ONE Stop: 05/24/20 17:27 Last Infusion: 05/24/20 19:09 Dose: 0 mls/hr Documented by: [id number] Admin: 05/24/20 18:28 Dose: 240 mls/hr Documented by: [id number] Sodium Chloride (Nss 1000ml) 1,000 mls @ 999 mls/hr IV .Q1H1M ONE Stop: 05/24/20 19:52 Last Admin: 05/24/20 20:27 Dose: Not Given Documented by: [id number] Acetaminophen (Ofirmev) 1,000 mg in 100 mls @ 400 mls/hr IV NOW STA Stop: 05/24/20 19:06 Last Infusion: 05/24/20 19:30 Dose: 0 mls/hr Documented by: [id number] Admin: 05/24/20 19:10 Dose: 400 mls/hr Documented by: [id number] Ioversol (Ioversol 100ml) 95 ml IV ONCE ONE Stop: 05/24/20 18:20 Last Admin: 05/24/20 18:20 Dose: 95 ml Documented by: [id number] Metoclopramide HCl (Metoclopramide Hcl Inj 5 Mg/Ml 2 Ml Vial) 10 mg IV NOW STA Stop: 05/24/20 16:59 Last Admin: 05/24/20 18:28 Dose: 10 mg Documented by: [id number] Discharge Plan Visit Data Chief Complaint: Abdominal Pain Stated Complaint: GALLBLADDER PAIN ED Provider: Amador Ashley Discharge Problem: Abdominal pain, Biliary colic Patient Disposition: Admitted As Inpatient Discharge Instructions Interventions: ED Discharge Assessment Last Done: 05/25/20 00:00 Discharge Problem: Abdominal pain Qualifiers: Abdominal location: right upper quadrant Qualified Code(s): R10.11 - Right upper quadrant pain
--- NOTE | 2020-05-24 18:51 | CT Scan Report ---
ABDOMEN AND PELVIS CT WITH IV CONTRAST CT DOSE: 247.73 mGy.cm HISTORY: Acute upper abdominal pain with history of partial cholecystectomy. upper ab pain; h/o part ial kathi TECHNIQUE: Multiaxial CT images of the abdomen and pelvis were performed following the IV administrat ion of 93 cc of Optiray 320, A dose lowering technique was utilized adhering to the principles of AL PATRICIO. COMPARISON STUDY: CT abdomen and pelvis 01/22/2020 FINDINGS: Clear lung bases. No pneumatosis or pneumoperitoneum. Imaged inferior cardiac chambers are unremarkable. Trace pericardial effusion. Spleen measures the upper limits of normal in size. Pancrea s and adrenal glands are unremarkable. Postoperative changes of partial cholecystectomy. There is dec reased inflammation involving the gallbladder remnant from comparison study. Gallbladder wall measure s within the upper limits of normal. Interval removal of the common bile duct stent. Pneumobilia sugg est prior sphincterotomy. There is no significant intrahepatic or extrahepatic biliary ductal dilatio n. Trace perihepatic and giuseppe hepatis ascites. Unremarkable liver. Patency of the hepatic and portal veins. There is no cholelithiasis or choledocholithiasis identified. 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 3 mm nonobstructing calculus of the inf erior pole left kidney. No ureteral calculi or obstructive uropathy. Mildly heterogeneous appearance of the uterus. Follicular changes of the ovaries. Aorta and IVC are unremarkable. No adenopathy. No small bowel obstruction. Fluid-filled decompressed rectum and distal colon. The visualized appendi x appears unremarkable within the abdominal right lower quadrant. A few nondilated air and fluid-fill ed loops of small bowel are noted. Unremarkable soft tissues. 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 Bones appear intact. No acute fracture. IMPRESSION: 1. Postoperative changes of partial cholecystectomy with interval removal of the common bile duct casper nt. The remnant gallbladder demonstrates wall thickening that appears to be in the upper limits of no rmal. Trace edema within the giuseppe hepatis with trace free fluid tracking along the inferior right he patic lobe and right pericolic gutter. Correlation with right upper quadrant abdominal ultrasound rec ommended. 2. No bowel obstruction or pneumoperitoneum. 3. There are a few fluid-filled loops of large and small bowel which are likely physiologic. A mild e nteritis/diarrheal illness could appear similarly. 4. No CT evidence of acute appendicitis. ACT 112: Negative or not required by law. The above report was generated using voice recognition software. It may contain grammatical, syntax o r spelling errors. Electronically signed by: Alonzo Cho M.D. 05/24/2020 6:50 PM
[2020-05-24] MEDS ORDERED: SODIUM CHLORIDE 0.9% 1000ML 1,000 ML IV ONE (18:52)
[2020-05-24] MEDS ORDERED: ACETAMINOPHEN 1,000 MG/100 ML VIAL IV STA (18:52)
[2020-05-24 19:18] LABS: Appearance Urine Clear (Clear); Bilirubin Urine Negative (Negative); Blood Urine Negative (Negative); Color Urine Yellow; Glucose Urine UA Negative (Negative); Ketones Urine Negative (Negative); Leukocyte Esterase Urine Negative (Negative); Nitrite Urine Negative (Negative); Protein Urine Negative (Negative); Specific Gravity Urine > 1.045 (1.000-1.030); Urobilinogen Urine Negative (Negative); pH Urine 7.5 (4.5-7.5)
--- NOTE | 2020-05-24 19:55 | Ultrasound Report ---
US gallbladder HISTORY: 39 years-old Female partial GB removal, thickening and fluid on CT follow-up study in a pat ient with partial cholecystectomy. COMPARISON: CT abdomen and pelvis of same day, right upper quadrant abdominal ultrasound 01/25/2020 TECHNIQUE: Multiple real-time sonographic images of the abdominal right upper quadrant were obtained assessing grayscale appearance and color flow FINDINGS: Visualized pancreas is unremarkable. Unremarkable liver with mild intrahepatic pneumobilia. Mild shad owing echogenicities within the anterior wall of the gallbladder. No air was seen within this distrib ution on comparison CT which is suggestive of probable cholesterol deposits. The gallbladder wall mechelle sures within the upper limits of normal at 3 mm. Trace pericholecystic fluid. There is an equivocal g allstone within the mid gallbladder remnant lumen. Normal common bile duct, 4 mm. Negative sonographi c Samayoa's sign. Natasha lipoma of the right kidney, 8 mm. No hydronephrosis. IMPRESSION: 1. Postoperative changes of partial cholecystectomy. The gallbladder wall measures within the upper l imits of normal and there is trace pericholecystic fluid with a possible single intraluminal gallston e. Lead Front End Developer reports a negative sonographic Samayoa's sign. Correlate clinically to exclude acute ch olecystitis. 2. Pneumobilia redemonstrated. ACT 112: Negative or not required by law. The above report was generated using voice recognition software. It may contain grammatical, syntax o r spelling errors. Electronically signed by: Alonzo Cho M.D. 05/24/2020 7:53 PM
--- NOTE | 2020-05-24 22:33 | History & Physical Report ---
Date of Service May 24, 2020 Assessment & Plan (1) Abdominal pain: 39yo female with acute cholecystitis in December 2019 s/p partial laparoscopic cholecystectomy with stent placement performed on 01/02/[address] Boykin. Patient has had persistent episodic nausea and RUQ abdominal pain since the surgery. She is scheduled to have cholecystectomy performed at [facility] in one week. Patient presents with acutely worsening RUQ discomfort, nausea and some chills. She is afebrile, mildly hypotensive in ER, however, patient runs low BP at baseline - non-toxic in appearance RUQUS and CT suggestive of edema of the gallbladder wall and pericholecystic fluid -Observation to medical -NPO -Zosyn 3.375gm IV q 8 -Zofran PRN nausea -Currently with no pain -Consult GI and General Surgery - assistance appreciated. Patient prefers to have surgery at [facility] as previously discussed should she need surgery -Repeat LFTs and CBC in AM F/E/N - NSS + 20mEq KCL x 2L, K=3.3, repeat chemistry in AM, NPO after midnight - patient is hungry, may have clear liquids now Ppx - Low risk for DVT Code - Full per discussion with patient Dispo - Observation to medical floor Present on Admission?: Yes History of Present Illness Chief Complaint: abdominal pain, nausea Primary Care Provider: MD Rupa Penn is a pleasant 39yo F with history of cholangitis s/p partial cholecystectomy with stent placement on 01/02/20, recurrent cholecystitis with subsequent hospitalizations. She reports having intermittent RUQ discomfort and episodic nausea since her surgery. She has been having more severe pain and nausea as well as some chills and subjective fevers over the last two days. She denies jaundice/icterus, diarrhea, vomiting. She is scheduled for open cholecystectomy to be performed at [facility] next Sunday. No additional complaints at this time No Covid-19 concerns ER Courese: Tylenol, Zosyn, Reglan, NSS Allergies Allergy/AdvReac Type Severity Reaction Status Date / Time No Known Allergies Allergy Unverified 04/23/20 14:39 Home Medications Home Medications Medication Instructions Recorded Confirmed Type tramadol 37.5 mg-acetaminophen 325 1 - 2 tab PO Q6H PRN #10 tab 07/01/20 10/26/20 Rx mg tablet hydroxyzine pamoate 25 mg capsule 25 mg PO HS PRN #30 cap 04/25/20 05/24/20 Rx Past Med/Surg History Medical History Anemia Cholangitis Choledocholithiasis Surgical History History of section History of knee surgery S/P cholecystectomy 12/05/19 Dr. Paulo Boykin S/P ERCP 01/23/20 Dr. Martinez Alfonso Family History Father Hyperlipidemia Cardiac disorder Hypertension Kidney stone Glaucoma Mother Hyperlipidemia Hypothyroidism Grandmother Diabetes Stomach cancer Unknown Cardiac disorder Hypertension Kidney stone Denies family history of Ovarian cancer Prostate cancer Myocardial infarction Breast cancer Colorectal cancer Social History Smoking Status: Never smoker Second Hand Exposure: No; Hx Alcohol Use: No Hx Substance Use: No Preferred Language: Djiboutian Communication Ability: Effective Visual Impairment: No Limitations Hearing Ability: Normal Outgoing Inspector Required: No Beliefs That Will Affect Care: None marital status: Current Living Situation: Family current occupational status: employed 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 Other Information That Helps Us Care for You: No Feels Safe at Home: Yes Safety Concerns: Feels Safe At This Time Childhood Exposure to Second-Hand Smoke: No Dental Care, Regularly: No Physical Activity Frequency: Does not Exercise Seatbelt Use: always Sunscreen Use: Yes Assistive Devices: None Review of Systems 2 Review of Systems: All systems reviewed & are unremarkable except as noted in HPI & below Physical Exam Physical Exam: General: patient resting comfortably, NAD, non-toxic in appearance, AA&O x 4 Skin: warm, dry, intact, no rashes or lesions HEENT: NC/AT, PERRL, EOMI, anicteric sclera, conjunctiva without injection, external ear normal to inspection and nontender, nares patent, moist mucus membranes, dentition intact, no oropharyngeal lesions, neck supple, trachea midline, no LAD, no thyromegaly, no JVD Heart: +S1/S2, regular, no m/r/g Lungs: equal air entry bilaterally, no rales/rhonchi/wheezes Abd: +BS, soft, +RUQ tenderness with negative Samayoa's sign, no masses/organom egaly/ascites Ext: warm, 2+ pulses in UE/LE bilaterally, no clubbing/cyanosis or edema Neuro: nonfocal, patient AA&O x 4, speech intact, no facial droop, moving all extremities on command with equal strength 5/5 Results & Data Results & Data ([facility]) Vital Signs (Past 12 Hours) Vital Signs Temp Pulse Resp BP Pulse Ox 05/24/20 21:30 61 16 96 05/24/20 19:04 71 20 104/60 100 05/24/20 18:30 69 15 95/63 L 100 05/24/20 17:30 73 20 109/54 L 100 05/24/20 17:14 80 20 102/66 100 05/24/20 17:00 100 05/24/20 15:10 37.6 C H 105 H 16 112/64 97 Laboratory Results Lab Results 05/24/20 05/24/20 05/24/20 Range/Units 16:30 16:30 16:30 WBC 11.88 H (4.8-10.8) K/uL RBC 4.30 (4.2-5.4) M/uL Hgb 12.5 (12.0-16.0) g/dL Hct 37.7 (37-47) % MCV 87.7 (80-100) fL MCH 29.1 (25-34) pg MCHC 33.2 (32-36) g/dL RDW Std Deviation 46.8 H (36.4-46.3) fL RDW Coeff of José 14.6 H (11.5-14.5) % Plt Count 277 (130-400) K/uL MPV 9.9 (7.4-10.4) fL Immature Gran % (Auto) 0.2 % Neut % (Auto) 89.7 % Lymph % (Auto) 6.5 % Bartholomew % (Auto) 3.4 % Eos % (Auto) 0.2 % Baso % (Auto) 0.0 % Neut # (Auto) 10.67 H (1.4-6.5) K/uL Lymph # (Auto) 0.77 L (1.2-3.4) K/uL Bartholomew # (Auto) 0.40 (0.11-0.59) K/uL Eos # (Auto) 0.02 (0-0.5) K/uL Baso # (Auto) 0.00 (0-0.2) K/uL Immature Gran # (Auto) 0.02 (0.00-0.02) K/uL PT (9.0-12.0) Seconds INR (0.9-1.1) APTT (21.0-31.0) Seconds PTT Ratio Sodium 141 (136-145) mmol/L Potassium 3.3 L (3.5-5.1) mmol/L Chloride 106 (98-107) mmol/L Carbon Dioxide 31 (21-32) mmol/L Anion Gap 4.0 (3-11) BUN 11 (7-18) mg/dl Creatinine 0.75 (0.6-1.2) mg/dl Est Cr Clr Drug Dosing 76.9 ml/min Est GFR ( Amer) 116.4 Est GFR (Non-Af Amer) 100.4 BUN/Creatinine Ratio 14.1 (10-20) Glucose 113 H (70-99) mg/dl Lactate (0.4-2.0) mmol/L Calcium 9.1 (8.5-10.1) mg/dl Magnesium 2.3 (1.8-2.4) mg/dl Total Bilirubin 1.1 H (0.2-1) mg/dl AST 10 L (15-37) U/L ALT 20 (12-78) U/L Alkaline Phosphatase 76 (45-117) U/L Total Protein 8.2 (6.4-8.2) gm/dl Albumin 4.2 (3.4-5.0) gm/dl Globulin 4.0 (2.5-4.0) gm/dl Albumin/Globulin Ratio 1.1 (0.9-2) Lipase 72 L (73-393) U/L Procalcitonin < 0.05 (0-0.5) ng/ml Urine Color Urine Appearance (Clear) Urine pH (4.5-7.5) Ur Specific [place] (1.000-1.030) Urine Protein (Negative) Urine Glucose (UA) (Negative) Urine Ketones (Negative) Urine Blood (Negative) Urine Nitrite (Negative) Urine Bilirubin (Negative) Urine Urobilinogen (Negative) Ur Leukocyte Esterase (Negative) 05/24/20 05/24/20 05/24/20 Range/Units 16:30 17:55 19:06 WBC (4.8-10.8) K/uL RBC (4.2-5.4) M/uL Hgb (12.0-16.0) g/dL Hct (37-47) % MCV (80-100) fL MCH (25-34) pg MCHC (32-36) g/dL RDW Std Deviation (36.4-46.3) fL RDW Coeff of José (11.5-14.5) % Plt Count (130-400) K/uL MPV (7.4-10.4) fL Immature Gran % (Auto) % Neut % (Auto) % Lymph % (Auto) % Bartholomew % (Auto) % Eos % (Auto) % Baso % (Auto) % Neut # (Auto) (1.4-6.5) K/uL Lymph # (Auto) (1.2-3.4) K/uL Bartholomew # (Auto) (0.11-0.59) K/uL Eos # (Auto) (0-0.5) K/uL Baso # (Auto) (0-0.2) K/uL Immature Gran # (Auto) (0.00-0.02) K/uL PT 11.8 (9.0-12.0) Seconds INR 1.1 (0.9-1.1) APTT 30.1 (21.0-31.0) Seconds PTT Ratio 1.1 Sodium (136-145) mmol/L Potassium (3.5-5.1) mmol/L Chloride (98-107) mmol/L Carbon Dioxide (21-32) mmol/L Anion Gap (3-11) BUN (7-18) mg/dl Creatinine (0.6-1.2) mg/dl Est Cr Clr Drug Dosing ml/min Est GFR ( Amer) Est GFR (Non-Af Amer) BUN/Creatinine Ratio (10-20) Glucose (70-99) mg/dl Lactate 0.7 (0.4-2.0) mmol/L Calcium (8.5-10.1) mg/dl Magnesium (1.8-2.4) mg/dl Total Bilirubin (0.2-1) mg/dl AST (15-37) U/L ALT (12-78) U/L Alkaline Phosphatase (45-117) U/L Total Protein (6.4-8.2) gm/dl Albumin (3.4-5.0) gm/dl Globulin (2.5-4.0) gm/dl Albumin/Globulin Ratio (0.9-2) Lipase (73-393) U/L Procalcitonin (0-0.5) ng/ml Urine Color Yellow Urine Appearance Clear (Clear) Urine pH 7.5 (4.5-7.5) Ur Specific [place] > 1.045 H (1.000-1.030) Urine Protein Negative (Negative) Urine Glucose (UA) Negative (Negative) Urine Ketones Negative (Negative) Urine Blood Negative (Negative) Urine Nitrite Negative (Negative) Urine Bilirubin Negative (Negative) Urine Urobilinogen Negative (Negative) Ur Leukocyte Esterase Negative (Negative) Diagnostic Findings XR chest 1V portable HISTORY: 39 years-old Female SEPSIS acute sepsis COMPARISON: CT abdomen and pelvis 01/22/2020 TECHNIQUE: Portable AP view of the chest FINDINGS: Cardiomediastinal and hilar silhouettes are within normal limits. No pneumothorax, pleural effusion, airspace consolidation or overt pulmonary edema. Bones of the chest appear grossly intact. IMPRESSION: No acute process. ACT 112: Negative or not required by law. The above report was generated using voice recognition software. It may contain grammatical, syntax or spelling errors. Electronically signed by: Alonzo Cho M.D. 05/24/2020 5:19 PM Dictated: 05/24/20 1719 Transcribed: 05/24/[address] WITH IV CONTRAST CT DOSE: 247.73 mGy.cm HISTORY: Acute upper abdominal pain with history of partial cholecystectomy. upper ab pain; h/o partial kathi TECHNIQUE: Multiaxial CT images of the abdomen and pelvis were performed following the IV administration of 93 cc of Optiray 320, A dose lowering technique was utilized adhering to the principles of ALARA. COMPARISON STUDY: CT abdomen and pelvis 01/22/2020 FINDINGS: Clear lung bases. No pneumatosis or pneumoperitoneum. Imaged inferior cardiac chambers are unremarkable. Trace pericardial effusion. Spleen measures the upper limits of normal in size. Pancreas and adrenal glands are unremarkable. Postoperative changes of partial cholecystectomy. There is decreased inflammation involving the gallbladder remnant from comparison study. Gallbladder wall measures within the upper limits of normal. Interval removal of the common bile duct stent. Pneumobilia suggest prior sphincterotomy. There is no significant intrahepatic or extrahepatic biliary ductal dilation. Trace perihepatic and giuseppe hepatis ascites. Unremarkable liver. Patency of the hepatic and portal veins. There is no cholelithiasis or choledocholithiasis identified. 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 3 mm nonobstructing calculus of the inferior pole left kidney. No ureteral calculi or obstructive uropathy. Mildly heterogeneous appearance of the uterus. Follicular changes of the ovaries. Aorta and IVC are unremarkable. No adenopathy. No small bowel obstruction. Fluid-filled decompressed rectum and distal colon. The visualized appendix appears unremarkable within the abdominal right lower quadrant. A few nondilated air and fluid-filled loops of small bowel are noted. Unremarkable soft tissues. 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 Bones appear intact. No acute fracture. IMPRESSION: 1. Postoperative changes of partial cholecystectomy with interval removal of the common bile duct stent. The remnant gallbladder demonstrates wall thickening that appears to be in the upper limits of normal. Trace edema within the giuseppe hepatis with trace free fluid tracking along the inferior right hepatic lobe and right pericolic gutter. Correlation with right upper quadrant abdominal ultrasound recommended. 2. No bowel obstruction or pneumoperitoneum. 3. There are a few fluid-filled loops of large and small bowel which are likely physiologic. A mild enteritis/diarrheal illness could appear similarly. 4. No CT evidence of acute appendicitis. ACT 112: Negative or not required by law. The above report was generated using voice recognition software. It may contain grammatical, syntax or spelling errors. Electronically signed by: Alonzo Cho M.D. 05/24/2020 6:50 PM Dictated: 05/24/201841 Transcribed: 05/24/201841 US gallbladder HISTORY: 39 years-old Female partial GB removal, thickening and fluid on CT follow-up study in a patient with partial cholecystectomy. COMPARISON: CT abdomen and pelvis of same day, right upper quadrant abdominal ultrasound 01/25/2020 TECHNIQUE: Multiple real-time sonographic images of the abdominal right upper quadrant were obtained assessing grayscale appearance and color flow FINDINGS: Visualized pancreas is unremarkable. Unremarkable liver with mild intrahepatic pneumobilia. Mild shadowing echogenicities within the anterior wall of the gallbladder. No air was seen within this distribution on comparison CT which is suggestive of probable cholesterol deposits. The gallbladder wall measures within the upper limits of normal at 3 mm. Trace pericholecystic fluid. There is an equivocal gallstone within the mid gallbladder remnant lumen. Normal common bile duct, 4 mm. Negative sonographic Samayoa's sign. Natasha lipoma of the right kidney, 8 mm. No hydronephrosis. IMPRESSION: 1. Postoperative changes of partial cholecystectomy. The gallbladder wall measures within the upper limits of normal and there is trace pericholecystic fluid with a possible single intraluminal gallstone. [employer] reports a negative sonographic Samayoa's sign. Correlate clinically to exclude acute cholecystitis. 2. Pneumobilia redemonstrated. ACT 112: Negative or not required by law. The above report was generated using voice recognition software. It may contain grammatical, syntax or spelling errors. Electronically signed by: Alonzo Cho M.D. 05/24/2020 7:53 PM Dictated: 05/24/201948 Transcribed: 05/24/201948 ECG Additional Comments: NSR at 76, normal axis, incomplete RBBB, no acute ischemic changes PG Care Time/CCT Total # of Minutes Spent Total Time Spent with Patient: Total time spent is greater than 50% in coordination of care (as documented) at patient's floor/unit and/or counseling patient: Coding Level of Care Code 82719 OBS Care - Level 2 Diagnoses Abdominal pain R10.11 Abdominal location: right upper quadrant (1) Abdominal pain Abdominal location: right upper quadrant Qualified Code(s): R10.11 - Right upper quadrant pain
[2020-05-25] MEDS ORDERED: ONDANSETRON INJ 2 MG/ML 2 ML VIAL IV PRN (00:27)
[2020-05-25] MEDS ORDERED: ACETAMINOPHEN 325 MG TAB PO PRN (00:27)
[2020-05-25] MEDS ORDERED: PIPERACILL/TAZOBAC CONSULT ACTIVE PRN (00:27)
[2020-05-25 00:32] VITALS: TEMP 98.2
[2020-05-25] MEDS: PIPERACILLIN/TAZOBACTAM 3.375 GM in DEXTROSE 5% 100 ML IV SCH ×2 (01:01→09:16)
[2020-05-25] MEDS: NSS + 20MEQ KCL 20 MEQ/1,000 ML BAG IV SCH ×2 (01:01→11:20)
[2020-05-25 07:44] VITALS: BP 89/54; PULSE 69; O2SAT 96
[2020-05-25 09:09] LABS: Eosinophils # (auto) 0.07 K/uL (0-0.5); Eosinophils % (auto) 1.3 %; Hematocrit (blood only) 30.3 % (37-47); Hemoglobin 9.6 g/dL (12.0-16.0); Lymphocytes # (auto) 0.88 K/uL (1.2-3.4); Lymphocytes % (auto) 16.5 %; Mean Corpuscular Hemoglobin 28.2 pg (25-34); Mean Corpuscular Hgb Conc 31.7 g/dL (32-36); Mean Corpuscular Volume 88.9 fL (80-100); Mean Platelet Volume 9.9 fL (7.4-10.4); Monocytes % (auto) 3.8 %; Neutrophils # (auto) 4.17 K/uL (1.4-6.5); Neutrophils % (auto) 78.4 %; Platelet Count 231 K/uL (130-400); RDW Coefficient of Variation 14.7 % (11.5-14.5); RDW Standard Deviation 47.7 fL (36.4-46.3); Red Blood Count 3.41 M/uL (4.2-5.4); White Blood Count 5.32 K/uL (4.8-10.8)
[2020-05-25 09:26] LABS: Albumin Level 3.1 gm/dl (3.4-5.0); BUN Creatinine Ratio 13.5 (10-20); Calcium 7.9 mg/dl (8.5-10.1); Creatinine Clr Calc Pharmacy 82.3 ml/min; Est GFR (African American) 127.1; Est GFR (Non-African American) 109.7; Potassium 3.7 mmol/L (3.5-5.1)
[2020-05-25 09:33] LABS: Bilirubin Direct 0.3 mg/dl (0-0.2); Bilirubin,Total 1.2 mg/dl (0.2-1); Total Protein 5.8 gm/dl (6.4-8.2)
--- NOTE | 2020-05-25 09:50 | Gastrointestinal Consultation ---
Date of Consultation May 25, 2020 Assessment & Plan (1) Abdominal pain: (2) Biliary colic: Pt is a 39 y/o female w hx of cholecystitis, cholangitis, choledocholithiasis s/p ERCP biliary stone removal, stent placement, and subsequent partial cholecystectomy in December. Since then she has persistent RUQ abd pain, and yesterday presented to ED w fever, chills and nausea. Her LFTs has normalized except for mildly elevated Tbili in low 1s. Repeat EUS recently, and admission CT abd/pelvis, u/s showed signs of gallstones in remnant gallbladder w some wall thickening, fluid but no signs of biliary obstruction. Today she feels well and desires to go home. She would like to proceed w origi nal plans to have her full cholecystectomy as scheduled on 05/31/[address] Hendrix at [facility]. - No contraindication for DC home. Would recommend her to be DC'd with antibx coverage for possible cholecystitis - Proceed with cholecystectomy 05/[address] Hendrix Supervising Physician Co-Signing Physician Notes I performed a history and physical examination of the patient today, including specifically on physical exam - soft abdomen. I have discussed the patient's management with the advanced practitioner. Please refer to the nurse practitioner's note for the documented findings and plan of care. Likely acute cholecystitis f the remnant GB. treat with ABx. Has an appointment for completion cholecystectomy next week. Recall GI if needed. History of Present Illness Reason for Consultation: Biliary colic s/p partial cholecystectomy Requesting Physician: Dr. Fede Langley Attending Physician: Dr. Laine Javed History of Present Illness Pt is a 39 y/o female w hx of cholecystitis s/p partial cholecystectomy; cholangitis & choledocholithiasis s/p removal & biliary stenting in December 2019. She continues to have RUQ abd pain that waxes and waned. Her LFTs had normalized except slightly elevated Tbili in low 1s. She recently had repeat EUS procedure which showed gallbladder remnant w stones, but no signs of biliary obstruction. She had been evaluated by Surgery at [facility] and had plans for full cholecystectomy on 05/[address] Hendrix. Yesterday she presented to ED as she started to have fever, chills, and some nausea w/o significant increase of her abd pain. LFTs stable, abd imaging studies w u/s and CT scan showed signs of gallbladder wall thickening w some fluid. No signs of biliary obstruction Allergies Allergy/AdvReac Type Severity Reaction Status Date / Time No Known Allergies Allergy Unverified 04/23/20 14:39 Home Medications Home Medications Medication Instructions Recorded Confirmed Type tramadol 37.5 mg-acetaminophen 325 1 - 2 tab PO Q6H PRN #10 tab 01/28/20 05/24/20 Rx mg tablet hydroxyzine pamoate 25 mg capsule 25 mg PO HS PRN #30 cap 04/25/20 05/24/20 Rx ciprofloxacin HCl 500 mg PO BID #14 tab 05/25/20 Rx metronidazole 500 mg PO TID #21 tab 05/25/20 Rx Patient History Medical History Anemia Cholangitis Choledocholithiasis Surgical History History of section History of knee surgery S/P cholecystectomy 12/05/19 Dr. Paulo Boykin S/P ERCP 01/23/20 Dr. Martinez Alfonso Family History Father Hyperlipidemia Cardiac disorder Hypertension Kidney stone Glaucoma Mother Hyperlipidemia Hypothyroidism Grandmother Diabetes Stomach cancer Unknown Cardiac disorder Hypertension Kidney stone Denies family history of Ovarian cancer Prostate cancer Myocardial infarction Breast cancer Colorectal cancer Social History Smoking Status: Never smoker Second Hand Exposure: No; Hx Alcohol Use: No Hx Substance Use: No Preferred Language: Bahamian Communication Ability: Effective Visual Impairment: No Limitations Hearing Ability: Normal Operations Representative Required: No Beliefs That Will Affect Care: None marital status: Current Living Situation: Family current occupational status: employed 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 Feels Safe at Home: Yes Childhood Exposure to Second-Hand Smoke: No Dental Care, Regularly: No Physical Activity Frequency: Does not Exercise Seatbelt Use: always Sunscreen Use: Yes Assistive Devices: None Review of Systems Review of Systems: All systems reviewed & are unremarkable except as noted in HPI & below Physical Exam Constitutional: WD/WN, vitals as above well groomed, cooperative and comfortable Eyes: PERRL, conjunctivae normal, anicteric sclerae ENMT: external ear and nose normal, oropharynx normal Respiratory: normal respiratory effort, lungs clear to auscultation Cardiovascular: RRR, no murmur, no edema Gastrointestinal (Abdomen): normal bowel sounds, soft, nontender, no hepatosplenomegaly Skin: no rashes, warm and dry Psychiatric: A+Ox3, euthymic affect Lymphatic: no lymphedema Results & Data ([facility]) Vital Signs (Past 12 Hours) Vital Signs Temp Pulse Pulse Resp BP BP Pulse Ox 05/25/20 07:41 36.8 C 69 16 89/54 L 96 05/25/20 00:18 36.8 C 59 L 14 82/43 L 95 05/24/20 23:24 37.1 C 53 L 16 96/43 L 95 05/24/20 22:30 75 18 95/41 L 97 05/24/20 22:00 54 L 15 88/45 L 96 (1) Abdominal pain Abdominal location: right upper quadrant Qualified Code(s): R10.11 - Right upper quadrant pain
--- NOTE | 2020-05-25 12:18 | Surgery Consultation ---
Date of Consultation May 25, 2020 Assessment & Plan (1) Chronic cholecystitis: pt is a 39 year-old female who was admitted to hospital for abdominal pain, S/P laparoscopic subtotal cholecystectomy, IMP: chronic cholecystitis, gallstone? no emergent surgical indication now, No contraindication for DC home. Would recommend her to be DC'd with antibx coverage for possible cholecystitis - Proceed with cholecystectomy 05/[address] Hendrix F/U me prn, sign off today, please call with questions, Thanks, Present on Admission?: Yes History of Present Illness Attending Physician: Fede Langley, DO History of Present Illness Chief Complaint: abdominal pain, nausea Primary Care Provider: Mei Mei MD Rupa Bella is a pleasant 39yo F with history of cholangitis s/p partial cholecystectomy with stent placement on 01/02/20, recurrent cholecystitis with subsequent hospitalizations. She reports having intermittent RUQ discomfort and episodic nausea since her surgery. She has been having more severe pain and nausea as well as some chills and subjective fevers over the last two days. She denies jaundice/icterus, diarrhea, vomiting. She is scheduled for open cholecystectomy to be performed at [facility] next Sunday. No additional complaints at this time No Covid-19 concerns I got a call for consult abdominal pain, I reviewed pt's H/P, labs, CT scan and u/s study with pt, now pt has no abdominal pain, pt denies nausea, no vomiting, no fever, ER Courese: Tylenol, Zosyn, Reglan, NSS Allergies Allergy/AdvReac Type Severity Reaction Status Date / Time No Known Allergies Allergy Unverified 04/23/20 14:39 Home Medications Home Medications Medication Instructions Recorded Confirmed Type tramadol 37.5 mg-acetaminophen 325 1 - 2 tab PO Q6H PRN #10 tab 01/28/20 05/24/20 Rx mg tablet hydroxyzine pamoate 25 mg capsule 25 mg PO HS PRN #30 cap 04/25/20 05/24/20 Rx Past Med/Surg History Medical History Anemia Cholangitis Choledocholithiasis Surgical History History of section History of knee surgery S/P cholecystectomy 12/05/19 Dr. Paulo Boykin S/P ERCP 01/23/20 Dr. Martinez Alfonso Family History Father Hyperlipidemia Cardiac disorder Hypertension Kidney stone Glaucoma Mother Hyperlipidemia Hypothyroidism Grandmother Diabetes Stomach cancer Unknown Cardiac disorder Hypertension Kidney stone Denies family history of Ovarian cancer Prostate cancer Myocardial infarction Breast cancer Colorectal cancer Social History Smoking Status: Never smoker Second Hand Exposure: No; Hx Alcohol Use: No Hx Substance Use: No Preferred Language: Lao Communication Ability: Effective Visual Impairment: No Limitations Hearing Ability: Normal Weed Sprayer Required: No Beliefs That Will Affect Care: None marital status: Current Living Situation: Family current occupational status: employed 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 Other Information That Helps Us Care for You: No Feels Safe at Home: Yes Safety Concerns: Feels Safe At This Time Childhood Exposure to Second-Hand Smoke: No Dental Care, Regularly: No Physical Activity Frequency: Does not Exercise Seatbelt Use: always Sunscreen Use: Yes Assistive Devices: None Review of Systems Review of Systems: All systems reviewed & are unremarkable except as noted in HPI & below Allergies Allergy/AdvReac Type Severity Reaction Status Date / Time No Known Allergies Allergy Unverified 04/23/20 14:39 Home Medications Home Medications Medication Instructions Recorded Confirmed Type tramadol 37.5 mg-acetaminophen 325 1 - 2 tab PO Q6H PRN #10 tab 01/28/20 05/24/20 Rx mg tablet hydroxyzine pamoate 25 mg capsule 25 mg PO HS PRN #30 cap 04/25/20 05/24/20 Rx Patient History Medical History Anemia Cholangitis Choledocholithiasis Surgical History History of section History of knee surgery S/P cholecystectomy 12/05/19 Dr. Paulo Boykin S/P ERCP 01/23/20 Dr. Martinez Alfonso Family History Father Hyperlipidemia Cardiac disorder Hypertension Kidney stone Glaucoma Mother Hyperlipidemia Hypothyroidism Grandmother Diabetes Stomach cancer Unknown Cardiac disorder Hypertension Kidney stone Denies family history of Ovarian cancer Prostate cancer Myocardial infarction Breast cancer Colorectal cancer Social History Smoking Status: Never smoker Second Hand Exposure: No; Hx Alcohol Use: No Hx Substance Use: No Preferred Language: Lao Communication Ability: Effective Visual Impairment: No Limitations Hearing Ability: Normal Weed Sprayer Required: No Beliefs That Will Affect Care: None marital status: Current Living Situation: Family current occupational status: employed 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 Other Information That Helps Us Care for You: No Feels Safe at Home: Yes Safety Concerns: Feels Safe At This Time Childhood Exposure to Second-Hand Smoke: No Dental Care, Regularly: No Physical Activity Frequency: Does not Exercise Seatbelt Use: always Sunscreen Use: Yes Assistive Devices: None Physical Exam Constitutional: WD/WN, vitals as above well developed and well nourished Eyes: PERRL, conjunctivae normal, anicteric sclerae ENMT: external ear and nose normal, oropharynx normal Neck: trachea midline, no thyromegaly Respiratory: normal respiratory effort, lungs clear to auscultation normal respiratory effort Cardiovascular: RRR, no murmur, no edema Rate/Rhythm: regular rate and regular rhythm Gastrointestinal (Abdomen): normal bowel sounds, soft, nontender, no hepatosplenomegaly Percussion/Palpation: abdomen soft NT, ND BS + Musculoskeletal: no cyanosis or clubbing, extremities motor strength 5/5 Skin: no rashes, warm and dry Neurologic: patellar DTR's 2+ bilat, sensation intact Psychiatric: Orientation: alert and oriented x 3 Results & Data ([facility]) Vital Signs (Past 12 Hours) Vital Signs Temp Pulse Resp BP Pulse Ox 05/25/20 07:41 36.8 C 69 16 89/54 L 96 05/25/20 00:18 36.8 C 59 L 14 82/43 L 95 Laboratory Results Abnormal lab results 05/24/20 05/24/20 05/24/20 Range/Units 16:30 16:30 19:06 WBC 11.88 H (4.8-10.8) K/uL RBC (4.2-5.4) M/uL Hgb (12.0-16.0) g/dL Hct (37-47) % MCHC (32-36) g/dL RDW Std Deviation 46.8 H (36.4-46.3) fL RDW Coeff of José 14.6 H (11.5-14.5) % Neut # (Auto) 10.67 H (1.4-6.5) K/uL Lymph # (Auto) 0.77 L (1.2-3.4) K/uL Potassium 3.3 L (3.5-5.1) mmol/L Chloride (98-107) mmol/L Glucose 113 H (70-99) mg/dl Calcium (8.5-10.1) mg/dl Total Bilirubin 1.1 H (0.2-1) mg/dl Direct Bilirubin (0-0.2) mg/dl AST 10 L (15-37) U/L Total Protein (6.4-8.2) gm/dl Albumin (3.4-5.0) gm/dl Lipase 72 L (73-393) U/L Ur Specific [place] > 1.045 H (1.000-1.030) 05/25/20 05/25/20 Range/Units 08:20 08:20 WBC (4.8-10.8) K/uL RBC 3.41 L (4.2-5.4) M/uL Hgb 9.6 L (12.0-16.0) g/dL Hct 30.3 L (37-47) % MCHC 31.7 L (32-36) g/dL RDW Std Deviation 47.7 H (36.4-46.3) fL RDW Coeff of José 14.7 H (11.5-14.5) % Neut # (Auto) (1.4-6.5) K/uL Lymph # (Auto) 0.88 L (1.2-3.4) K/uL Potassium (3.5-5.1) mmol/L Chloride 112 H (98-107) mmol/L Glucose (70-99) mg/dl Calcium 7.9 L (8.5-10.1) mg/dl Total Bilirubin 1.2 H (0.2-1) mg/dl Direct Bilirubin 0.3 H (0-0.2) mg/dl AST 10 L (15-37) U/L Total Protein 5.8 L D (6.4-8.2) gm/dl Albumin 3.1 L (3.4-5.0) gm/dl Lipase (73-393) U/L Ur Specific [place] (1.000-1.030) Diagnostic Findings US gallbladder HISTORY: 39 years-old Female partial GB removal, thickening and fluid on CT follow-up study in a patient with partial cholecystectomy. COMPARISON: CT abdomen and pelvis of same day, right upper quadrant abdominal ultrasound 01/25/2020 TECHNIQUE: Multiple real-time sonographic images of the abdominal right upper quadrant were obtained assessing grayscale appearance and color flow FINDINGS: Visualized pancreas is unremarkable. Unremarkable liver with mild intrahepatic pneumobilia. Mild shadowing echogenicities within the anterior wall of the gallbladder. No air was seen within this distribution on comparison CT which is suggestive of probable cholesterol deposits. The gallbladder wall measures within the upper limits of normal at 3 mm. Trace pericholecystic fluid. There is an equivocal gallstone within the mid gallbladder remnant lumen. Normal common bile duct, 4 mm. Negative sonographic Samayoa's sign. Natasha lipoma of the right kidney, 8 mm. No hydronephrosis. IMPRESSION: 1. Postoperative changes of partial cholecystectomy. The gallbladder wall m easures within the upper limits of normal and there is trace pericholecystic fluid with a possible single intraluminal gallstone. Police Stenographer reports a negative sonographic Samayoa's sign. Correlate clinically to exclude acute cholecystitis. 2. Pneumobilia redemonstrated. ABDOMEN AND PELVIS CT WITH IV CONTRAST CT DOSE: 247.73 mGy.cm HISTORY: Acute upper abdominal pain with history of partial cholecystectomy. upper ab pain; h/o partial kathi TECHNIQUE: Multiaxial CT images of the abdomen and pelvis were performed following the IV administration of 93 cc of Optiray 320, A dose lowering tech nique was utilized adhering to the principles of ALARA. COMPARISON STUDY: CT abdomen and pelvis 01/22/2020 FINDINGS: Clear lung bases. No pneumatosis or pneumoperitoneum. Imaged inferior cardiac chambers are unremarkable. Trace pericardial effusion. Spleen measures the upper limits of normal in size. Pancreas and adrenal glands are unremarkable. Postoperative changes of partial cholecystectomy. There is decreased inflammation involving the gallbladder remnant from comparison study. Gallbladder wall measures within the upper limits of normal. Interval removal of the common bile duct stent. Pneumobilia suggest prior sphincterotomy. There is no significant intrahepatic or extrahepatic biliary ductal dilation. Trace perihepatic and giuseppe hepatis ascites. Unremarkable liver. Patency of the hep atic and portal veins. There is no cholelithiasis or choledocholithiasis identified. 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 3 mm nonobstructing calculus of the inferior pole left kidney. No ureteral calculi or obstructive uropathy. Mildly heterogeneous appearance of the uterus. Follicular changes of the ovaries. Aorta and IVC are unremarkable. No adenopathy. No small bowel obstruction. Fluid-filled decompressed rectum and distal colon. The visualized appendix appears unremarkable within the abdominal right lower quadrant. A few nondilated air and fluid-filled loops of small bowel are noted. Unremarkable soft tissues. 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 Bones appear intact. No acute fracture. IMPRESSION: 1. Postoperative changes of partial cholecystectomy with interval removal of the common bile duct stent. The remnant gallbladder demonstrates wall thickening that appears to be in the upper limits of normal. Trace edema within the giuseppe hepatis with trace free fluid tracking along the inferior right hepatic lobe and right pericolic gutter. Correlation with right upper quadrant abdominal ultrasound recommended. 2. No bowel obstruction or pneumoperitoneum. 3. There are a few fluid-filled loops of large and small bowel which are likely physiologic. A mild enteritis/diarrheal illness could appear similarly. 4. No CT evidence of acute appendicitis.
--- NOTE | 2020-05-25 13:37 | Discharge Summary ---
Date of Service May 25, 2020 Admission HPI Per Admitting Provider Rupa Bella is a pleasant 39yo F with history of cholangitis s/p partial cholecystectomy with stent placement on 01/02/20, recurrent cholecystitis with subsequent hospitalizations. She reports having intermittent RUQ discomfort and episodic nausea since her surgery. She has been having more severe pain and nausea as well as some chills and subjective fevers over the last two days. She denies jaundice/icterus, diarrhea, vomiting. She is scheduled for open cholecystectomy to be performed at [facility] next Sunday. No additional complaints at this time No Covid-19 concerns ER Courese: Tylenol, Zosyn, Reglan, NSS Principal Diagnosis Cholecystitis Discharge Exam Constitutional WD/WN, vitals as above Respiratory normal respiratory effort, lungs clear to auscultation Cardiovascular RRR, no murmur, no edema Gastrointestinal (Abdomen) normal bowel sounds, soft, nontender, no hepatosplenomegaly Musculoskeletal no cyanosis or clubbing, extremities motor strength 5/5 Skin right posterior hip shingles Neurologic moves all extremities and awake Psychiatric A+Ox3, euthymic affect Discharge Data Allergies Allergy/AdvReac Type Severity Reaction Status Date / Time No Known Allergies Allergy Unverified 04/23/20 14:39 Consultations 05/24/20 20:18 ED Decision to Admit Stat 05/25/20 00:27 Consult Gastroenterology Routine Consult General Surgery Routine Ordered Studies 05/24/20 17:43 CT abd pelvis IV con only Stat 05/24/20 18:52 US gallbladder Stat Hospital Course (1) Abdominal pain: 39yo female with acute cholecystitis in December 2019 s/p partial laparoscopic cholecystectomy with stent placement performed on 01/02/[address] Boykin. Patient has had persistent episodic nausea and RUQ abdominal pain since the surgery. She is scheduled to have cholecystectomy performed at [facility] in one week. Patient presented with acutely worsening RUQ discomfort, nausea and some chills. She is afebrile, mildly hypotensive in ER, however, patient runs low BP at baseline - non-toxic in appearance. Asymptomatic, review of past blood pressures reveals this to be her baseline RUQUS and CT suggestive of edema of the gallbladder wall and pericholecystic fluid - bili is 1.2 which is around her baseline since summer. Transaminases wnl -Consulted GI and General Surgery - both surgery and GI are in agreement that she can discharge to home with abx with plan to have her surgery with [facility] on Sunday. Will discharge with cipro and flagyl for 1 week - regimen will be completed morning of surgery. (2) Shingles: Developed about 7 days ago, now drying, no fluid filled vesicles. Not painful. Follow with pcp (3) Anemia: Normocytic Hgb 10.9 which is baseline follow with pcp Total Time Total Time Spent Total Time Spent (In Minutes): greater than 30 minutes Discharge Plan Discharge Items Patient Disposition: Home - Self-Care Reason For Visit: RUQ PAIN, NAUSEA Discharge Diagnosis: Right upper quadrant pain Activity: Resume your previous activity Non-emergency contact: Primary Care Provider Call non-emergency contact if: you have any medication questions, your symptoms worsen and you have a fever Follow-up/Referrals: Mei Mei MD [Primary Care Provider] - Diet: Regular Addtl Attending Provider Instructions: You will return home with 7 days of antibiotics which will complete the morning of your surgery in [place] on 05/31. Please hold your hydroxyzine until you have finished your ciprofloxacin to avoid drug interaction. Please keep your appointment with surgery in [place] on Sunday. Pending Studies at Discharge: No Stand-Alone Forms: My [facility] [place], Smoking Cessation Medications and DC Order Prescriptions: New ciprofloxacin HCl 500 mg tablet 500 mg PO BID Qty: 14 RF: 0 metronidazole 500 mg tablet 500 mg PO TID Qty: 21 RF: 0 Continued tramadol-acetaminophen 37.5-325 mg tablet 1 - 2 tab PO Q6H PRN (Reason: pain) Qty: 10 RF: 0 hydroxyzine pamoate 25 mg capsule 25 mg PO HS PRN (Reason: anxiety) Qty: 30 RF: 0 Discharge Orders: Discharge Order (Routine); Ordered 05/25/20 Ordered By: Hortensia Angle/Other Patient Handouts: Abdominal Pain Admission Data Admit Date/Time: 05/24/20 22:26 Attending Provider: Fede Langley Admit Provider: Karoline Houston Primary Care Provider: Mei Mei Other Providers: Karoline Houston ; Martinez Alfonso ; Rogerio Wadsworth Other Interventions: Discharge Summary Assessment (RN) Last Done: 05/25/20 13:50 Supervising Physician Co-Signing Physician Notes Patient seen and examined on the day of discharge. I agree with the discharge summary by Hortensia BRITO. I have reviewed the chart including labs, imaging and plans for discharge. patient doing well, pain is tolerable, she is eating, no fevers appreciate consults from GI and surgery - Cholecystitis, s/p partial cholecystectomy discharge on Cipro/Flagyl plan for surgery with [facility] next week Coding Level of Care Code D/C Day Management >30 mins Diagnoses Abdominal pain R10.11 Abdominal location: right upper quadrant Shingles B02.9 Anemia D64.9
--- NOTE | 2020-05-25 22:20 | Electrocardiogram Report ---
Test Reason : Blood Pressure : / mmHG Vent. Rate : 076 BPM Atrial Rate : 076 BPM P-R Int : 124 ms QRS Dur : 102 ms QT Int : 376 ms P-R-T Axes : 077 079 066 degrees QTc Int : 423 ms Normal sinus rhythm Possible Left atrial enlargement Incomplete right bundle branch block Borderline ECG When compared with ECG of 22-JAN-2020 23:27, No significant change was found Confirmed by Marquis Uribe ([id number]) on 05/25/2020 10:20:18 PM Referred By: REFERRED SELF Confirmed By:Marquis Uribe
--- NOTE | 2020-05-26 06:11 | Electrocardiogram Report ---
Test Reason : Blood Pressure : / mmHG Vent. Rate : 055 BPM Atrial Rate : 055 BPM P-R Int : 114 ms QRS Dur : 092 ms QT Int : 440 ms P-R-T Axes : 072 074 053 degrees QTc Int : 420 ms Sinus bradycardia Incomplete right bundle branch block Borderline ECG When compared with ECG of 24-MAY-2020 17:09, No significant change was found Confirmed by Marquis Uribe ([id number]) on 05/26/2020 6:11:25 AM Referred By: REFERRED SELF Confirmed By:Marquis Uribe
== END 2020-05-25 14:00 | disposition home or self-care (01) ==
LOC: ED 14:44 → 3W 14:44 → SUATTDRO 22:26 → 3W 05-25
DX: Z82.49 Family history of ischemic heart disease and other diseases of the circulatory system; Z83.3 Family history of diabetes mellitus; Z84.1 Family history of disorders of kidney and ureter; D64.9 Anemia, unspecified; B02.9 Zoster without complications; K81.9 Cholecystitis, unspecified